=== PATIENT | female | born 1930 | race Caucasian/White ===

== ENCOUNTER 2018-10-07 23:09 | Inpatient (IN) | payer MEDICARE, MEDICAID ==
[2018-10-08] MEDS ORDERED: Labetalol HCl 100 MG/20 ML VIAL ONE (00:56)
[2018-10-08] MEDS ORDERED: Piperacillin/Tazobactam 3.375 GM VIAL ONE (00:56)
[2018-10-08] MEDS ORDERED: Ondansetron ODT 4 MG TAB PO PRN (02:45)
[2018-10-08] MEDS ORDERED: Acetaminophen 650 MG Suppository PR PRN (02:45)
[2018-10-08] MEDS ORDERED: Calcium Carbonate 500 MG ChewTAB PO PRN (02:45)
[2018-10-08] MEDS ORDERED: Bisacodyl 10 MG SUPP PR PRN (02:45)
[2018-10-08] MEDS ORDERED: Ondansetron PF 4 MG/2 ML Vial IVP PRN (02:45)
[2018-10-08] MEDS ORDERED: hydrALAZINE 20 MG/ML VIAL SLOW IVP PRN (02:49)
[2018-10-08] MEDS ORDERED: Nitroglycerin 0.4 MG TAB (25 Tab Bottle) PO PRN (02:50)
[2018-10-08] MEDS ORDERED: cloNIDine 0.1 MG TAB PO PRN (02:51)
[2018-10-08 03:32] LABS: #Lymphocytes 0.8 thou/uL (1.20-3.40); #Monocytes 0.4 thou/uL (0.11-0.59); #Neutrophils 7.9 thou/uL (1.40-6.50); %Basophils 0.4 % (0.0-1.0); %Eosinophils 0.2 % (0.0-10.0); %Lymphocytes 8.3 % (21.0-51.0); %Monocytes 4.2 % (0.0-10.0); %Neutrophils 86.8 % (42.0-75.0); Hemoglobin 12.5 g/dL (12.0-16.0); Mean Corpuscular HGB CONC 32.2 g/dL (32.0-36.0); Mean Corpuscular Hemoglobin 28.8 pg (27.0-31.0); Mean Corpuscular Volume 89.5 fL (78.0-98.0); Mean Platelet Volume 8.2 fL (7.4-10.4); Platelet Count 226 thou/uL (130-400); RBC Distribution Width 12.5 % (11.5-14.5); Red Blood Cell (RBC) Count 4.33 mill/uL (4.20-5.40); White Blood Cell (WBC) Count 9.1 thou/uL (4.8-10.8)
[2018-10-08 03:44] LABS: INR-International Normal Ratio 1.1; PTT 29.8 SEC (22.9-36.1); Prothrombin Time 14.3 SEC (12.0-14.7)
[2018-10-08 03:48] LABS: ALT (SGPT) 10 U/L (8-55); AST (SGOT) 16 U/L (5-34); Alkaline Phosphatase 105 U/L (40-150); Anion Gap 14 mmol/L (10-20); BUN (Urea Nitrogen) 14 mg/dL (9.8-20.1); Bilirubin, Total 0.5 mg/dL (0.2-1.2); Calc. Creatinine Clearance 0 mL/min (70-130); Calcium 9.2 mg/dL (7.8-10.44); Carbon Dioxide 24 mmol/L (23-31); Chloride 106 mmol/L (98-107); Estimated GFR-MDRD 71; Globulin 2.9 g/dL (2.4-3.5); Glucose 143 mg/dL (83-110); Magnesium 1.9 mg/dL (1.6-2.6); Potassium 4.1 mmol/L (3.5-5.1); Protein, Total 6.9 g/dL (6.0-8.3); Sodium 140 mmol/L (136-145)
[2018-10-08 03:51] LABS: Troponin I Less than 0.010 ng/mL (< 0.028)
--- NOTE | 2018-10-08 03:51 | HP ---
PRIMARY CARE PHYSICIAN: Dr. Dunham at [facility]. CHIEF COMPLAINT: Nausea and vomiting. HISTORY OF PRESENT ILLNESS: The patient is an 88-year-old female with dementia, currently residing at [facility], was brought in to [place] [facility] with nausea and vomiting. The patient is a poor historian, and history was obtained from the ER records. No family at the bedside. The patient has been nauseous and had several episodes of vomiting at the nursing facility. She also had mild diffuse abdominal pain. There was no diarrhea or flank pain reported. No fever, diaphoresis, dysuria, hematuria, or urgency reported. She also had elevated blood pressure that did not improve despite hydralazine at the nursing facility. For this reason, she was sent to the emergency room. In the emergency room, her initial vital signs showed temperature 97.2, respirations 20, pulse of 98 with a blood pressure 182/140 and 219/108 with O2 saturation 94% on room air. CT scan of the brain was negative for acute findings except for remote CVAs. Chest x-ray was negative for infiltrate. CT scan of the abdomen and pelvis showed pyelonephritis with staghorn calculus. The gallbladder also was distended with stone and sludge. There was some questionable enteritis as well. She received ceftriaxone, Compazine, nitroglycerin patch, and labetalol and was transferred to this facility. PAST MEDICAL HISTORY: 1. Alzheimer dementia. 2. Hypertension. 3. Allergic rhinitis. 4. Iron-deficiency anemia. 5. Congestive heart failure. Ejection fraction unavailable. 6. Gastroesophageal reflux disease. 7. Anxiety and depression. PAST SURGICAL HISTORY: 1. Hip replacement. 2. Cardiac surgery of unclear etiology. ALLERGIES: NO KNOWN DRUG ALLERGIES. CURRENT MEDICATIONS: She is currently on, 1. Seroquel. 2. Vitamin D. 3. Hydralazine. 4. Loratadine. 5. Metoprolol. 6. Potassium chloride. 7. Remeron. 8. Exelon patch. 9. Lisinopril. 10. Iron supplementation per ER record. We will try to obtain accurate list of medications from the nursing facility. CODE STATUS: Full code for now. We will try to verify with the family, when they arrive. SOCIAL HISTORY: The patient currently resides at [facility]. No current use of smoking, alcohol, or drug use. FAMILY HISTORY: Father had prostate cancer. REVIEW OF SYSTEMS: Cannot be obtained from the patient due to current cognitive status. PHYSICAL EXAMINATION: VITAL SIGNS: As discussed above. GENERAL: An 88-year-old female, in no apparent distress. HEENT: Head, atraumatic and normocephalic. Sclerae anicteric. Dry mucous membranes. No oral lesion. NECK: Supple. No JVD appreciated. No carotid bruit. LUNGS: Showed scattered rhonchi with diminished air entry at bases. No wheezing or accessory muscle use. No significant rales. HEART: S1 and S2 present. Regular rate and rhythm. 2/6 systolic murmur over the mitral area. ABDOMEN: Soft. Mild generalized tenderness. No rebound or guarding. No costovertebral angle tenderness. EXTREMITIES: 1+ edema in bilateral lower extremities. No calf tenderness. SKIN: Warm and dry. LYMPH NODE: No palpable lymph nodes in the neck. PERIPHERAL VASCULAR: Radial pulses palpable bilaterally. MUSCULOSKELETAL: No joint swelling or tenderness. LABORATORY FINDINGS: CBC showed WBC 5.6 with hemoglobin 12.5, hematocrit 38.8, and platelets 205. Chemistry showed sodium 144, potassium 3.9, chloride 107, bicarb 26, BUN 12, and creatinine 0.76. LFTs in normal range. BNP 218. Troponin was negative. TSH 0.72. Lactic acid was 0.8. Urinalysis showed 21 to 50 wbc's with 4+ bacteria. Urine cultures and blood cultures have been sent. Chest x-ray by my review as discussed above. CT scan of the abdomen and pelvis by my review as discussed above. EKG by my review showed sinus rhythm with first-degree AV block. IMPRESSION: 1. Acute pyelonephritis. 2. Staghorn left renal calculus. 3. Gallbladder distention with gallbladder calculi and/or sludge. Abdominal ultrasound pending at this time. 4. Pulmonary vascular congestion with history of congestive heart failure, ejection fraction unknown. 5. Hypertensive urgency. 6. Anxiety. 7. Depression, mild, stable. 8. Alzheimer dementia. 9. 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 11. Dehydration. PLAN: The patient will be monitored on the medical floor. Urology will be consulted. ER physician has already discussed the case with Dr. Mayer. Empiric antibiotics will be continued. We will continue antihypertensive regimen. Nitroglycerin patch. P.r.n. antihypertensives. We will keep her n.p.o. The patient will require 2 to 3 days for stabilization. Blood and urine cultures have been sent. Plan of care was discussed with the patient. We will discuss the plan of care with the family, when they arrive. Surrogate decision maker needs to be verified. The patient will be kept full code for now. Job ID: [id number]
[2018-10-08] MEDS: Nitroglycerin 2% Ointment 1 INCH/1 GM Packet TOP SCH ×3 (04:16→19:10)
[2018-10-08] MEDS: Dextrose 5 %-0.45 % NaCl 1,000 ML IV SCH ×2 (04:16→23:54)
--- NOTE | 2018-10-08 08:05 | ULT ---
RIGHT UPPER QUADRANT ULTRASOUND: HISTORY: Right upper quadrant pain, abdominal pain, nausea and vomiting. FINDINGS: Multiple longitudinal and transverse images of the right upper quadrant abdomen is obtained using a m ultihertz curvilinear transducer. Real-time, color flow images used to evaluate the right upper quad rant. The liver is unremarkable with no evidence of hepatic parenchymal masses or lesions. The gallbladder contains echogenic foci compatible with numerous gallstones as well as gallbladder sl udge. The gallbladder wall is not significantly thickened measuring 2 mm. No evidence of pericholec ystic fluid is seen. The common bile duct is of normal size measuring 6.5 mm. The right kidney is unremarkable measuring 10.1 cm from [id number]. It does contain approximately 3.2 x 2.9 cm cyst in the lower pole of the right kidney. Visualized portion of the pancreas is unremarkable. IMPRESSION: 1. Cholelithiasis. 2. Lower pole right renal cyst. POS: AMEE
[2018-10-08] MEDS: cefTRIAXone\\ROCEPHIN 2 GM in Sodium Chloride 0.9% 100 ML IVPB SCH (08:29)
[2018-10-08] MEDS: Senokot S 8.6-50 MG TAB PO SCH ×2 (08:30→20:11)
[2018-10-08] MEDS: Lisinopril 20 MG TAB PO SCH (08:30)
[2018-10-08] MEDS: Saccharomyces boulardii 250 MG CAP PO SCH (08:30)
[2018-10-08] MEDS: hydrALAZINE 25 MG TAB PO SCH ×3 (08:30→20:12)
--- NOTE | 2018-10-08 13:32 | RAD ---
XR Abdomen 1 View/KUB 1 view abdomen series CLINICAL INDICATION: Urolithiasis FINDINGS: Lung bases are clear. Staghorn density of the left abdomen is present. There is contrast within moderately distended urinar y bladder. Bladder wall is trabeculated. IMPRESSION: Staghorn calculus of left abdomen. Trabeculated urinary bladder which can be seen in the setting of neurogenic bladder or sequela from c hronic outlet obstruction. Correlate clinically.
--- NOTE | 2018-10-08 14:10 | CON ---
DATE OF CONSULTATION: 10/08/2018 PRIMARY CARE DOCTOR: Kaleigh Dunham MD, [place] REASON FOR CONSULT: Left staghorn calculus. HISTORY OF PRESENT ILLNESS: Ms. Norris is a pleasant 88-year-old female with history of Alzheimer dementia, oriented x1, who presented from [facility] due to history of nausea and vomiting. The patient is a poor historian, oriented x1. No family at bedside. I did reach out to her power of vehicle trimmer daughter, extensive discussion with daughter, History of nausea with several episodes of vomiting per nursing facility. Currently, she is resting comfortably. Denies flank pain or abdominal pain. She denies history of dysuria, gross hematuria, frequent UTI, no history of kidney stone. Daughter confirms that the patient has not had significant UTIs, nor prior history of kidney stones. No history of fever or chills. Her main complaint was as above of nausea, emesis, and diffuse abdominal pain. CT of the abdomen and pelvis with IV contrast was performed demonstrating incidental right renal cyst, and there is a left staghorn, involving the renal pelvis, mid and lower pole with cortical scarring of the upper and lower poles. She has been provided Rocephin. Urinalysis is consistent with UTI, white count normal. Renal function and lactic acid are within normal limits. PAST MEDICAL HISTORY: Includes, 1. Alzheimer dementia. 2. Hypertension. 3. Iron deficiency anemia. 4. Congestive heart failure, EF unknown. 5. GERD. 6. Anxiety/depression. 7. History of first degree heart block. 8. History of myxoma of heart. 9. History of C. diff 10-12 years ago, resulting in acute renal failure requiring hemodialysis. PAST SURGICAL HISTORY: Hip replacement, cataract surgery in 2014 and 2016. Per PCP records, had myxoma removed from her heart in 2004 and 2006 due to recurrence. FAMILY HISTORY: Positive for prostate cancer. SOCIAL HISTORY: She is a retirement resident. ALLERGIES: NO KNOWN DRUG ALLERGIES. PHYSICAL EXAMINATION: VITAL SIGNS: Her vital signs are stable. She is 98, 94, 94%, 162/182. GENERAL: The patient appears to be in no acute distress. She is oriented x1. HEENT: Grossly unremarkable. HEART: Regular rate. LUNGS: Clear. ABDOMEN: Soft. There is no rigidity. No rebound. No CVA tenderness. : Demonstrates atrophic vaginitis. No significant prolapse. Urethral meatus is easily visible. EXTREMITIES: No cyanosis, clubbing, or edema. PERTINENT LABORATORY DATA: White count of 9.1, hemoglobin 12, platelet 226, creatinine 0.7. Lactic acid within normal limits of 0.8. Urinalysis demonstrates 4+ bacteria, no epithelials, 30 of protein, positive nitrites, moderate leukocytes, 21 to 50 wbc's, 11 to 20 rbc's. IMAGING STUDIES: CT of the abdomen and pelvis with contrast. No prior imaging to compare. Demonstrates 3.5 cm hypodense right lower pole renal cyst compatible with cyst, too small to characterize bilateral hypodense renal cysts. There is a left staghorn with associated cortical scarring of the left lower pole. HU 400-700 .The staghorn calculi demonstrates per my review involving the renal pelvis, mid and lower pole. There is minimal dilatation of the left lower and upper poles. Minimal stranding. Pleural thickening. Small amount of free fluid in the abdomen. Thickening of the small bowel extending into the lower pelvis with mild prominence of the bowel loops suggesting enteritis and distended gallbladder with calculi and sludge. CT of the brain demonstrates cortical volume loss, mild lacunar infarct. Abdominal ultrasound, cholelithiasis, gallbladder wall is not significantly thickened. IMPRESSION: Ms. Norris is an 88-year-old female with, 1. History of severe Alzheimer dementia. 2. Hypertension. 3. History of congestive heart failure. 4. History of myxoma of the heart removal x2. 5. History of Clostridium difficile in 12-13 years ago resulting in acute renal failure on dialysis. 6. Current admission due to abdominal pain, nausea, vomiting, likely due to enteritis. Resolved 7. Incidental left branch staghorn with urinalysis demonstrating urinary tract infection. RECOMMENDATION: I discussed with patient's daughter, who is the power of vehicle trimmer, regarding the patient's presentation, prognosis, diagnosis and treatment options. I have informed the family that our options include conservative observation given her advanced age, comorbidities. With observation, the possibility of progression of staghorn calculi resulting in pyelonephritis, loss of renal function, sepsis reviewed. Conversely, the options include percutaneous nephrolithotomy, nephrectomy, ureteroscopy, laser lithotripsy. Unfortunately, the surgical interventions above are high risk given her advanced age. If family and patient decides to choose surgery, she will require formal cardiac clearance. I do not recommend percutaneous nephrolithotomy given her age and frailty, there is significant risk for bleeding associated with PCNL as it is more morbid. nephrectomy also remains high risk. Options of ureteroscopy and laser lithotripsy further discussed. Given the extensive stone burden, she will require multiple general anesthesia events to clear her stone burden. Moreover, risk of sepsis, bacteremia by manipulating the stone was reviewed. The patient's daughter understands the limited options given her advanced age and comorbidities. As she is clinically stable, daughter will think about this matter and let me know regarding her final decision. She desires her mother to be full code as of now. No surgical intervention per indicated at this time. The patient is nontoxic appearing. Daughter informed that despite cardiac clearance obtained, high risk for surgical intervention remains given her advanced age. Recommend broad-spectrum antibiotics until culture final. She will need to be transitioned to appropriate antibiotic therapy based on sensitivity. If the patient/family agreed to be conservatively observed, Infectious Disease consult will be obtained regarding options of antibiotic regimen prophylaxis due to staghorn calculi, as there is history of C. diff as well. Over 1 hour spent with patient/direct patient care consulting with family. Job ID: [id number] MTDTrudi
[2018-10-09] MEDS: Nitroglycerin 2% Ointment 1 INCH/1 GM Packet TOP SCH (02:18)
[2018-10-09 06:19] LABS: #Eosinphils 0.1 thou/uL (0.0-0.7); #Lymphocytes 1.8 thou/uL (1.20-3.40); #Monocytes 0.6 thou/uL (0.11-0.59); #Neutrophils 4.1 thou/uL (1.40-6.50); %Basophils 0.6 % (0.0-1.0); %Eosinophils 2.2 % (0.0-10.0); %Lymphocytes 27.4 % (21.0-51.0); %Monocytes 8.9 % (0.0-10.0); %Neutrophils 60.9 % (42.0-75.0); Hemoglobin 10.6 g/dL (12.0-16.0); Mean Corpuscular HGB CONC 31.4 g/dL (32.0-36.0); Mean Corpuscular Hemoglobin 28.4 pg (27.0-31.0); Mean Corpuscular Volume 90.3 fL (78.0-98.0); Mean Platelet Volume 7.8 fL (7.4-10.4); Platelet Count 198 thou/uL (130-400); RBC Distribution Width 12.5 % (11.5-14.5); Red Blood Cell (RBC) Count 3.73 mill/uL (4.20-5.40); White Blood Cell (WBC) Count 6.7 thou/uL (4.8-10.8)
[2018-10-09 06:43] LABS: ALT (SGPT) 7 U/L (8-55); AST (SGOT) 18 U/L (5-34); Albumin 3.4 g/dL (3.4-4.8); Alkaline Phosphatase 86 U/L (40-150); Anion Gap 9 mmol/L (10-20); BUN (Urea Nitrogen) 14 mg/dL (9.8-20.1); Bilirubin, Total 0.3 mg/dL (0.2-1.2); Calc. Creatinine Clearance 48 mL/min (70-130); Calcium 8.7 mg/dL (7.8-10.44); Carbon Dioxide 28 mmol/L (23-31); Chloride 108 mmol/L (98-107); Estimated GFR-MDRD 59; Globulin 2.6 g/dL (2.4-3.5); Glucose 93 mg/dL (83-110); Potassium 3.6 mmol/L (3.5-5.1); Sodium 141 mmol/L (136-145)
[2018-10-09] MEDS: Saccharomyces boulardii 250 MG CAP PO SCH (07:40)
[2018-10-09] MEDS ORDERED: Diabetic Tussin DM 5 ML UDCUP PO PRN (07:40)
[2018-10-09] MEDS ORDERED: hydrALAZINE 10 MG TAB PO PRN (07:40)
[2018-10-09] MEDS: Senokot S 8.6-50 MG TAB PO SCH ×2 (07:40→20:57)
[2018-10-09] MEDS ORDERED: Loratadine 10 MG TAB PO PRN (07:40)
[2018-10-09] MEDS ORDERED: Ondansetron ODT 4 MG TAB PO PRN (07:40)
[2018-10-09] MEDS: hydrALAZINE 25 MG TAB PO SCH ×3 (07:41→20:55)
[2018-10-09] MEDS: Lisinopril 20 MG TAB PO SCH (07:41)
[2018-10-09] MEDS: cefTRIAXone\\ROCEPHIN 2 GM in Sodium Chloride 0.9% 100 ML IVPB SCH (07:41)
--- NOTE | 2018-10-09 08:41 | PRG ---
DATE OF SERVICE: 10/09/2018 SUBJECTIVE: The patient without complaints. Denies nausea, vomiting, chills, or fever. No CVA tenderness. PHYSICAL EXAMINATION: VITAL SIGNS: Stable at 98.6, 107, 18, 96, 170/81. I's and O's, she is voiding in her diapers. ABDOMEN: Soft, nontender, nondistended. No CVA tenderness. PERTINENT LABORATORY DATA: White count 6.7, hemoglobin 10.6, platelet 198. No significant shift. Renal function is stable with creatinine of 0.91. Urine culture from [facility] is pending. IMPRESSION AND PLAN: Ms. Norris is an 88-year-old female with, 1. History of severe Alzheimer dementia. 2. Hypertension. 3. History of congestive heart failure. 4. Myxoma of the heart removal x2. 5. History of Clostridium diff 12-13 years ago resulting in acute renal failure, dialysis. 6. Current admission due to enteritis, resolved. 7. Incidental left branch staghorn calculus. Urinalysis demonstrating UTI infection, sensitivity pending from [facility]. As previous, I have discussed with daughter on initial consult regarding disposition regarding treatment options. Given her significant advanced age and comorbidities, high risk for surgical intervention was reviewed. Family will let me know regarding their preference on treatment of surgical versus medical observation given her clinical comorbidities. She is hemodynamically stable. Await final culture and sensitivity prior to discharge. Continue antibiotic regimen with Rocephin for now. Due to her advanced age and frail nature, would prefer conservative observation with medical therapy in the absence of clinical compromise/sepsis ID: [id number] [facility]
[2018-10-09] MEDS ORDERED: Rivastigmine 9.5mg/24 Hour PATCH TD SCH (09:00)
[2018-10-09] MEDS ORDERED: MIRTAZAPINE PO SCH (09:00)
[2018-10-09] MEDS ORDERED: Lisinopril 20 MG TAB PO SCH (09:00)
[2018-10-09] MEDS ORDERED: Fluticasone Propionate Nasal Spray 16 gm Bottle NASAL SCH (09:00)
[2018-10-09] MEDS ORDERED: hydrALAZINE 25 MG TAB PO SCH (09:00)
[2018-10-09] MEDS ORDERED: Non-Formulary Item 1 EACH (Cholecalciferol (Vitamin D3) [Vitamin D3] 1 TAB) PO SCH (09:00)
[2018-10-09] MEDS ORDERED: Metoprolol Tartrate 25 MG TAB PO SCH (09:00)
[2018-10-09] MEDS: Rivastigmine 9.5mg/24 Hour PATCH TD SCH (10:22)
[2018-10-09] MEDS: Metoprolol Tartrate 25 MG TAB PO SCH ×2 (10:22→20:55)
[2018-10-09] MEDS: Fluticasone Propionate Nasal Spray 16 gm Bottle NASAL SCH (10:22)
--- NOTE | 2018-10-09 10:52 | PDOC.PN ---
- Subjective Encounter Start Date: 10/09/18 Encounter Start Time: 08:30 -: old records requested/rev Patient seen and examined. No new complaints. No overnight events - Objective Resuscitation Status - Order Detail: 10/08/18 02:45 Resuscitation Status Routine Resuscitation Status: FULL: Full Resuscitation MAR Reviewed: Yes Vital Signs & Weight: Vital Signs (12 hours) Temp Pulse Resp BP BP Pulse Ox 10/09/18 08:00 98.1 F 115 H 22 H 144/70 H 97 10/09/18 07:41 108 H 116/61 10/09/18 04:56 98.6 F 107 H 18 170/81 H 96 10/09/18 02:35 94 L Weight Weight 149 lb 14.629 oz I&O: 10/08/18 10/09/18 10/10/18 06:59 06:59 06:59 Intake Total 950 Balance 950 Result Diagrams: 10/09/18 06:09 10/09/18 06:09 Phys Exam - Physical Examination Constitutional: NAD HEENT: PERRLA, moist MMs, sclera anicteric Neck: no JVD, supple Respiratory: no wheezing, no rales, no rhonchi Cardiovascular: RRR, no significant murmur, no rub Gastrointestinal: soft, non-tender, no distention, positive bowel sounds Musculoskeletal: no edema, pulses present Neurological: non-focal, normal sensation Lymphatic: no nodes Psychiatric: normal affect, A&O x 3 Skin: no rash, normal turgor Dx/Plan (1) Acute pyelonephritis Code(s): N10 - ACUTE PYELONEPHRITIS Status: Acute (2) Enteritis Code(s): K52.9 - NONINFECTIVE GASTROENTERITIS AND COLITIS, UNSPECIFIED Status : Acute (3) Staghorn calculus Code(s): N20.0 - CALCULUS OF KIDNEY Status: Acute (4) Alzheimer's dementia Code(s): G30.9 - ALZHEIMER'S DISEASE, UNSPECIFIED; F02.80 - DEMENTIA IN OTH DISEASES CLASSD ELSWHR W/O BEHAVRL DISTURB Status: Chronic (5) Anxiety and depression Code(s): F41.9 - ANXIETY DISORDER, UNSPECIFIED; F32.9 - MAJOR DEPRESSIVE DISORDER, SINGLE EPISODE, UNSPECIFIED Status: Chronic (6) Cholelithiases Code(s): K80.20 - CALCULUS OF GALLBLADDER W/O CHOLECYSTITIS W/O OBSTRUCTION Status: Chronic (7) Hypertension Code(s): I10 - ESSENTIAL (PRIMARY) HYPERTENSION Status: Chronic (8) Hypertensive urgency Code(s): I16.0 - HYPERTENSIVE URGENCY Status: Resolved - Plan cont current plan of care, continue antibiotics * medication reviewed as below * symptomatic treatment * follow culture * continue rocephin * urology following. Review of Systems - Review of Systems ENT: negative: Ear Pain, Ear Discharge, Nose Pain, Nose Discharge, Nose Congestion, Mouth Pain, Mouth Swelling, Throat Pain, Throat Swelling, Other Respiratory: negative: Cough, Dry, Shortness of Breath, Hemoptysis, SOB with Excertion, Pleuritic Pain, Sputum, Wheezing Cardiovascular: negative: chest pain, palpitations, orthopnea, paroxysmal nocturnal dyspnea, edema, light headedness, other Gastrointestinal: negative: Nausea, Vomiting, Abdominal Pain, Diarrhea, Constipation, Melena, Hematochezia, Other Genitourinary: negative: Dysuria, Frequency, Incontinence, Hematuria, Retention , Other Musculoskeletal: negative: Neck Pain, Shoulder Pain, Arm Pain, Back Pain, Hand Pain, Leg Pain, Foot Pain, Other - Medications/Allergies Allergies/Adverse Reactions: Allergies Allergy/AdvReac Type Severity Reaction Status Date / Time No Known Drug Allergies Allergy Verified 10/08/18 05:10 Medications: Current Medications Acetaminophen (Tylenol) 650 mg PO Q4H PRN PRN Reason: Headache/Fever/Mild Pain (1-3) Acetaminophen (Tylenol) 650 mg [place] Q4H PRN PRN Reason: Headache/Fever/Mild Pain (1-3) Bisacodyl (Dulcolax) 10 mg [place] DAILYPRN PRN PRN Reason: Constipation Calcium Carbonate (Tums) 1,000 mg PO Q4H PRN PRN Reason: Heartburn or Indigestion Cholecalciferol (Vitamin D3) 1,000 units PO DAILY [facility] Last Admin: 10/09/18 10:22 Dose: 1,000 units Clonidine (Catapres) 0.1 mg PO Q4H PRN PRN Reason: Systolic BP > 180 Ferrous Sulfate (Feosol) 325 mg PO [facility] Fluticasone Propionate (Flonase Nasal Mobile) 0 gm NASAL DAILY [facility] Last Admin: 10/09/18 10:22 Dose: 1 spr Guaifenesin/Dextromethorphan (Diabetic Tussin Dm) 10 ml PO Q6H PRN PRN Reason: Cough Hydralazine HCl (Apresoline) 25 mg PO TID [facility] Last Admin: 10/09/18 07:41 Dose: 25 mg Hydralazine HCl (Apresoline) 10 mg SLOW IVP Q4H PRN PRN Reason: SBP Greater Than 180 Hydralazine HCl (Apresoline) 10 mg PO Q6H PRN PRN Reason: Hypertension Ceftriaxone Sodium 2 gm/ (Sodium Chloride) 100 mls @ 200 mls/hr IVPB DAILY [facility] Last Admin: 10/09/18 07:41 Dose: 100 mls Dextrose/Sodium Chloride (D5 1/2 Ns) 1,000 mls @ 50 mls/hr IV .Q20H [facility] Last Admin: 10/08/18 23:54 Dose: 1,000 mls Lisinopril (Zestril) 20 mg PO DAILY [facility] Last Admin: 10/09/18 07:41 Dose: 20 mg Loratadine (Claritin) 10 mg PO DAILY PRN PRN Reason: cough Metoprolol Tartrate (Lopressor) 25 mg PO BID [facility] Last Admin: 10/09/18 10:22 Dose: 25 mg Nitroglycerin (Nitrostat) 0.4 mg PO Q5MIN PRN PRN Reason: Chest Pain Ondansetron HCl (Zofran Odt) 4 mg PO Q6H PRN PRN Reason: Nausea/Vomiting Ondansetron HCl (Zofran) 4 mg IVP Q6H PRN PRN Reason: Nausea/Vomiting Potassium Chloride (Klor-Con 10) 10 meq PO QAM-WM [facility] Quetiapine Fumarate (Seroquel) 300 mg PO HS [facility] Rivastigmine (Exelon Patch) 9.5 mg TD DAILY [facility] Last Admin: 10/09/18 10:22 Dose: 9.5 mg Saccharomyces Boulardii (Florastor) 250 mg PO DAILY [facility] Last Admin: 10/09/18 07:40 Dose: 250 mg Senna/Docusate Sodium (Senokot S) 1 tab PO BID [facility] Last Admin: 10/09/18 07:40 Dose: 1 tab Sodium Chloride (Flush - Normal Saline) 10 ml IVF PRN PRN PRN Reason: Saline Flush
[2018-10-09 15:25] VITALS: BMI 19.4
[2018-10-09] MEDS: Dextrose 5 %-0.45 % NaCl 1,000 ML IV SCH (20:57)
[2018-10-10] MEDS ORDERED: Ferrous Sulfate 325 MG TAB PO SCH (08:00)
[2018-10-10 08:12] LABS: #Eosinphils 0.1 thou/uL (0.0-0.7); #Lymphocytes 1.5 thou/uL (1.20-3.40); #Monocytes 0.6 thou/uL (0.11-0.59); #Neutrophils 2.4 thou/uL (1.40-6.50); %Basophils 0.9 % (0.0-1.0); %Eosinophils 3.1 % (0.0-10.0); %Lymphocytes 32.1 % (21.0-51.0); %Monocytes 13.5 % (0.0-10.0); %Neutrophils 50.5 % (42.0-75.0); Hemoglobin 10.5 g/dL (12.0-16.0); Mean Corpuscular Hemoglobin 27.9 pg (27.0-31.0); Mean Corpuscular Volume 89.8 fL (78.0-98.0); Mean Platelet Volume 8.7 fL (7.4-10.4); Platelet Count 180 thou/uL (130-400); RBC Distribution Width 12.7 % (11.5-14.5); Red Blood Cell (RBC) Count 3.79 mill/uL (4.20-5.40); White Blood Cell (WBC) Count 4.7 thou/uL (4.8-10.8)
[2018-10-10 08:28] LABS: Anion Gap 12 mmol/L (10-20); BUN (Urea Nitrogen) 19 mg/dL (9.8-20.1); Calc. Creatinine Clearance 47 mL/min (70-130); Calcium 8.5 mg/dL (7.8-10.44); Carbon Dioxide 26 mmol/L (23-31); Chloride 108 mmol/L (98-107); Estimated GFR-MDRD 71; Glucose 83 mg/dL (83-110); Potassium 3.8 mmol/L (3.5-5.1); Sodium 142 mmol/L (136-145)
--- NOTE | 2018-10-10 09:34 | PRG ---
DATE OF SERVICE: 10/10/2018 SUBJECTIVE: The patient is alert and awake. Denies flank pain, fever, or chills. OBJECTIVE: VITAL SIGNS: Stable. She is afebrile. ABDOMEN: Soft, nontender, nondistended. No CVA tenderness. LABORATORY DATA: No new labs. She has no has no evidence of leukocytosis or fever. Renal function stable at 0.9. Blood culture negative. Urine culture preliminary demonstrates Klebsiella, pansensitive. Currently on Rocephin. IMPRESSION AND PLAN: An 88-year-old female with, 1. History of severe Alzheimer dementia. 2. History of hypertension. 3. History of congestive heart failure. 4. History of myxoma of the heart removal x2. 5. History of Clostridium difficile 12-13 years ago resulting in acute renal failure, dialysis. 6. Admission due to enteritis, resolved. 7. Incidental left branch staghorn calculus with normal renal function, asymptomatic. Urinalysis demonstrated bacteriuria. Currently, on appropriate antibiotic therapy. I will reach out to her daughter sometime today regarding her final decision regarding her mother's treatment options. I did express concern regarding her surgical candidacy due to her advanced age and frail nature. If they do agree to be observed, I will consult Infectious Disease regarding course of action regarding antibiotic therapy long-term as I do have concerns regarding chronic antibiotics due to history of C diff. Addendum: Spoke with daughter. We again discussed patient's diagnosis concern regarding her advanced age. Daughter who is patient's power of carrier packer has agreed to watch her mother conservatively with no surgical intervention as she has no acute events. Second opinion offered if she desires to proceed. Declined. Will initiate infectious disease consult, regarding recommendations of antibiotic regimen, prophylaxis. Spoke with Dr. Singh, clinical history informed Job ID: [id number] [facility]
[2018-10-10] MEDS: Saccharomyces boulardii 250 MG CAP PO SCH (09:54)
[2018-10-10] MEDS: hydrALAZINE 25 MG TAB PO SCH ×3 (09:54→19:55)
[2018-10-10] MEDS: Potassium Chloride 10 MEQ TAB PO SCH (09:56)
[2018-10-10] MEDS: Metoprolol Tartrate 25 MG TAB PO SCH ×2 (09:57→19:55)
[2018-10-10] MEDS: Senokot S 8.6-50 MG TAB PO SCH ×2 (09:57→19:55)
[2018-10-10] MEDS: Ferrous Sulfate 325 MG TAB PO SCH (09:58)
[2018-10-10] MEDS: Rivastigmine 9.5mg/24 Hour PATCH TD SCH (09:59)
[2018-10-10] MEDS: cefTRIAXone\\ROCEPHIN 2 GM in Sodium Chloride 0.9% 100 ML IVPB SCH (10:00)
[2018-10-10] MEDS: Fluticasone Propionate Nasal Spray 16 gm Bottle NASAL SCH (10:04)
[2018-10-10] MEDS: Lisinopril 20 MG TAB PO SCH (12:30)
--- NOTE | 2018-10-10 13:27 | PDOC.PN ---
- Subjective Encounter Start Date: 10/10/18 Encounter Start Time: 08:15 Patient seen and examined. No new complaints. No overnight events - Objective Resuscitation Status - Order Detail: 10/08/18 02:45 Resuscitation Status Routine Resuscitation Status: FULL: Full Resuscitation MAR Reviewed: Yes Vital Signs & Weight: Vital Signs (12 hours) Temp Pulse Resp BP BP Pulse Ox 10/10/18 12:30 153/73 H 10/10/18 09:54 87 10/10/18 07:04 97.9 F 87 19 168/90 H 98 Weight Admit Weight 125 lb Weight 124 lb 4.8 oz I&O: 10/09/18 10/10/18 10/11/18 06:59 06:59 06:59 Intake Total 950 Balance 950 Result Diagrams: 10/10/18 07:38 10/10/18 07:38 Phys Exam - Physical Examination Constitutional: NAD HEENT: PERRLA, moist MMs, sclera anicteric Neck: no JVD, supple Respiratory: no wheezing, no rales, no rhonchi Cardiovascular: RRR, no significant murmur, no rub Gastrointestinal: soft, non-tender, no distention, positive bowel sounds Musculoskeletal: no edema, pulses present Neurological: non-focal, normal sensation Lymphatic: no nodes Psychiatric: normal affect Skin: no rash, normal turgor Dx/Plan (1) Acute pyelonephritis Code(s): N10 - ACUTE PYELONEPHRITIS Status: Acute (2) Enteritis Code(s): K52.9 - NONINFECTIVE GASTROENTERITIS AND COLITIS, UNSPECIFIED Status : Acute (3) Staghorn calculus Code(s): N20.0 - CALCULUS OF KIDNEY Status: Acute (4) Alzheimer's dementia Code(s): G30.9 - ALZHEIMER'S DISEASE, UNSPECIFIED; F02.80 - DEMENTIA IN OTH DISEASES CLASSD ELSWHR W/O BEHAVRL DISTURB Status: Chronic (5) Anxiety and depression Code(s): F41.9 - ANXIETY DISORDER, UNSPECIFIED; F32.9 - MAJOR DEPRESSIVE DISORDER, SINGLE EPISODE, UNSPECIFIED Status: Chronic (6) Cholelithiases Code(s): K80.20 - CALCULUS OF GALLBLADDER W/O CHOLECYSTITIS W/O OBSTRUCTION Status: Chronic (7) Hypertension Code(s): I10 - ESSENTIAL (PRIMARY) HYPERTENSION Status: Chronic (8) Hypertensive urgency Code(s): I16.0 - HYPERTENSIVE URGENCY Status: Resolved - Plan cont current plan of care, continue antibiotics * medication reviewed as below * symptomatic treatment * continue one more day IV antibiotics, so far culture negative * tomorrow will change to oral antibiotics and consider discharge. * DC IVF Review of Systems - Review of Systems ENT: negative: Ear Pain, Ear Discharge, Nose Pain, Nose Discharge, Nose Congestion, Mouth Pain, Mouth Swelling, Throat Pain, Throat Swelling, Other Respiratory: negative: Cough, Dry, Shortness of Breath, Hemoptysis, SOB with Excertion, Pleuritic Pain, Sputum, Wheezing Cardiovascular: negative: chest pain, palpitations, orthopnea, paroxysmal nocturnal dyspnea, edema, light headedness, other Gastrointestinal: negative: Nausea, Vomiting, Abdominal Pain, Diarrhea, Constipation, Melena, Hematochezia, Other Genitourinary: negative: Dysuria, Frequency, Incontinence, Hematuria, Retention , Other Musculoskeletal: negative: Neck Pain, Shoulder Pain, Arm Pain, Back Pain, Hand Pain, Leg Pain, Foot Pain, Other Skin: negative: Rash, Lesions, Ian, Bruising, Other - Medications/Allergies Allergies/Adverse Reactions: Allergies Allergy/AdvReac Type Severity Reaction Status Date / Time No Known Drug Allergies Allergy Verified 10/08/18 05:10 Medications: Current Medications Acetaminophen (Tylenol) 650 mg PO Q4H PRN PRN Reason: Headache/Fever/Mild Pain (1-3) Acetaminophen (Tylenol) 650 mg [place] Q4H PRN PRN Reason: Headache/Fever/Mild Pain (1-3) Bisacodyl (Dulcolax) 10 mg [place] DAILYPRN PRN PRN Reason: Constipation Calcium Carbonate (Tums) 1,000 mg PO Q4H PRN PRN Reason: Heartburn or Indigestion Cholecalciferol (Vitamin D3) 1,000 units PO DAILY [facility] Last Admin: 10/10/18 09:56 Dose: 1,000 units Clonidine (Catapres) 0.1 mg PO Q4H PRN PRN Reason: Systolic BP > 180 Ferrous Sulfate (Feosol) 325 mg PO QA[facility] Last Admin: 10/10/18 09:58 Dose: 325 mg Fluticasone Propionate (Flonase Nasal [place]) 0 gm NASAL DAILY [facility] Last Admin: 10/10/18 10:04 Dose: 1 spr Guaifenesin/Dextromethorphan (Diabetic Tussin Dm) 10 ml PO Q6H PRN PRN Reason: Cough Hydralazine HCl (Apresoline) 25 mg PO TID [facility] Last Admin: 10/10/18 09:54 Dose: 25 mg Hydralazine HCl (Apresoline) 10 mg SLOW IVP Q4H PRN PRN Reason: SBP Greater Than 180 Hydralazine HCl (Apresoline) 10 mg PO Q6H PRN PRN Reason: SBP >/=175, DBP >/= 105 Ceftriaxone Sodium 2 gm/ (Sodium Chloride) 100 mls @ 200 mls/hr IVPB DAILY [facility] Last Admin: 10/10/18 10:00 Dose: 100 mls Lisinopril (Zestril) 20 mg PO DAILY [facility] Last Admin: 10/10/18 12:30 Dose: 20 mg Loratadine (Claritin) 10 mg PO DAILY PRN PRN Reason: cough Metoprolol Tartrate (Lopressor) 25 mg PO BID [facility] Last Admin: 10/10/18 09:57 Dose: 25 mg Nitroglycerin (Nitrostat) 0.4 mg PO Q5MIN PRN PRN Reason: Chest Pain Ondansetron HCl (Zofran Odt) 4 mg PO Q6H PRN PRN Reason: Nausea/Vomiting Ondansetron HCl (Zofran) 4 mg IVP Q6H PRN PRN Reason: Nausea/Vomiting Potassium Chloride (Klor-Con 10) 10 meq PO QAM-WM [facility] Last Admin: 10/10/18 09:56 Dose: 10 meq Quetiapine Fumarate (Seroquel) 300 mg PO HS [facility] Last Admin: 10/09/18 20:55 Dose: 300 mg Rivastigmine (Exelon Patch) 9.5 mg TD DAILY [facility] Last Admin: 10/10/18 09:59 Dose: 9.5 mg Saccharomyces Boulardii (Florastor) 250 mg PO DAILY [facility] Last Admin: 10/10/18 09:54 Dose: 250 mg Senna/Docusate Sodium (Senokot S) 1 tab PO BID [facility] Last Admin: 10/10/18 09:57 Dose: 1 tab Sodium Chloride (Flush - Normal Saline) 10 ml IVF PRN PRN PRN Reason: Saline Flush
[2018-10-10] MEDS: Acetaminophen 325 MG TAB PO PRN (19:56)
[2018-10-11] MEDS: Senokot S 8.6-50 MG TAB PO SCH ×2 (08:01→20:53)
[2018-10-11] MEDS: Potassium Chloride 10 MEQ TAB PO SCH (08:01)
[2018-10-11] MEDS: Ferrous Sulfate 325 MG TAB PO SCH (08:01)
[2018-10-11] MEDS: Lisinopril 20 MG TAB PO SCH (08:02)
[2018-10-11] MEDS: Metoprolol Tartrate 25 MG TAB PO SCH ×2 (08:02→20:53)
[2018-10-11] MEDS: hydrALAZINE 25 MG TAB PO SCH ×3 (08:02→20:53)
[2018-10-11] MEDS: Saccharomyces boulardii 250 MG CAP PO SCH (08:02)
[2018-10-11] MEDS: Fluticasone Propionate Nasal Spray 16 gm Bottle NASAL SCH (08:03)
[2018-10-11] MEDS: cefTRIAXone\\ROCEPHIN 2 GM in Sodium Chloride 0.9% 100 ML IVPB SCH (08:03)
[2018-10-11] MEDS: Rivastigmine 9.5mg/24 Hour PATCH TD SCH (10:37)
--- NOTE | 2018-10-11 14:36 | PDOC.PN ---
- Subjective Encounter Start Date: 10/11/18 Encounter Start Time: 10:00 Patient seen and examined. No new complaints. No overnight events - Objective Resuscitation Status - Order Detail: 10/08/18 02:45 Resuscitation Status Routine Resuscitation Status: FULL: Full Resuscitation MAR Reviewed: Yes Vital Signs & Weight: Vital Signs (12 hours) Temp Pulse Resp BP BP BP Pulse Ox 10/11/18 10:34 124/60 10/11/18 08:08 96 10/11/18 08:02 72 178/79 H 10/11/18 08:00 97.7 F 77 16 178/79 H 96 10/11/18 05:20 97.6 F 72 20 159/88 H 99 Weight Admit Weight 125 lb Weight 124 lb 4.8 oz I&O: 10/10/18 10/11/18 10/12/18 06:59 06:59 06:59 Intake Total 900 Balance 900 Result Diagrams: 10/10/18 07:38 10/10/18 07:38 Phys Exam - Physical Examination Constitutional: NAD HEENT: PERRLA, moist MMs, sclera anicteric Neck: no JVD, supple Respiratory: no wheezing, no rales, no rhonchi Cardiovascular: RRR, no significant murmur, no rub Gastrointestinal: soft, non-tender, no distention, positive bowel sounds Musculoskeletal: no edema, pulses present Neurological: non-focal, normal sensation Lymphatic: no nodes Psychiatric: normal affect Skin: no rash, normal turgor Dx/Plan (1) Acute pyelonephritis Code(s): N10 - ACUTE PYELONEPHRITIS Status: Acute (2) Enteritis Code(s): K52.9 - NONINFECTIVE GASTROENTERITIS AND COLITIS, UNSPECIFIED Status : Acute (3) Staghorn calculus Code(s): N20.0 - CALCULUS OF KIDNEY Status: Acute (4) Alzheimer's dementia Code(s): G30.9 - ALZHEIMER'S DISEASE, UNSPECIFIED; F02.80 - DEMENTIA IN OTH DISEASES CLASSD ELSWHR W/O BEHAVRL DISTURB Status: Chronic (5) Anxiety and depression Code(s): F41.9 - ANXIETY DISORDER, UNSPECIFIED; F32.9 - MAJOR DEPRESSIVE DISORDER, SINGLE EPISODE, UNSPECIFIED Status: Chronic (6) Cholelithiases Code(s): K80.20 - CALCULUS OF GALLBLADDER W/O CHOLECYSTITIS W/O OBSTRUCTION Status: Chronic (7) Hypertension Code(s): I10 - ESSENTIAL (PRIMARY) HYPERTENSION Status: Chronic (8) Hypertensive urgency Code(s): I16.0 - HYPERTENSIVE URGENCY Status: Resolved - Plan cont current plan of care, continue antibiotics, social work job titles * medication reviewed as below * symptomatic treatment * continue IV rocephin for now * final antibiotics on discharge as per ID * will plan for discharge tomorrow. * so far culture negative * as per family only conservative treatment Review of Systems - Review of Systems ENT: negative: Ear Pain, Ear Discharge, Nose Pain, Nose Discharge, Nose Congestion, Mouth Pain, Mouth Swelling, Throat Pain, Throat Swelling, Other Respiratory: negative: Cough, Dry, Shortness of Breath, Hemoptysis, SOB with Excertion, Pleuritic Pain, Sputum, Wheezing Cardiovascular: negative: chest pain, palpitations, orthopnea, paroxysmal nocturnal dyspnea, edema, light headedness, other Gastrointestinal: negative: Nausea, Vomiting, Abdominal Pain, Diarrhea, Constipation, Melena, Hematochezia, Other Genitourinary: negative: Dysuria, Frequency, Incontinence, Hematuria, Retention , Other Musculoskeletal: negative: Neck Pain, Shoulder Pain, Arm Pain, Back Pain, Hand Pain, Leg Pain, Foot Pain, Other - Medications/Allergies Allergies/Adverse Reactions: Allergies Allergy/AdvReac Type Severity Reaction Status Date / Time No Known Drug Allergies Allergy Verified 10/08/18 05:10 Medications: Current Medications Acetaminophen (Tylenol) 650 mg PO Q4H PRN PRN Reason: Headache/Fever/Mild Pain (1-3) Last Admin: 10/10/18 19:56 Dose: 650 mg Acetaminophen (Tylenol) 650 mg [place] Q4H PRN PRN Reason: Headache/Fever/Mild Pain (1-3) Bisacodyl (Dulcolax) 10 mg [place] DAILYPRN PRN PRN Reason: Constipation Calcium Carbonate (Tums) 1,000 mg PO Q4H PRN PRN Reason: Heartburn or Indigestion Cholecalciferol (Vitamin D3) 1,000 units PO DAILY [facility] Last Admin: 10/11/18 08:02 Dose: 1,000 units Clonidine (Catapres) 0.1 mg PO Q4H PRN PRN Reason: Systolic BP > 180 Ferrous Sulfate (Feosol) 325 mg PO QAM-[facility] Last Admin: 10/11/18 08:01 Dose: 325 mg Fluticasone Propionate (Flonase Nasal [place]) 0 gm NASAL DAILY [facility] Last Admin: 10/11/18 08:03 Dose: 1 spr Guaifenesin/Dextromethorphan (Diabetic Tussin Dm) 10 ml PO Q6H PRN PRN Reason: Cough Hydralazine HCl (Apresoline) 25 mg PO TID [facility] Last Admin: 10/11/18 08:02 Dose: 25 mg Hydralazine HCl (Apresoline) 10 mg SLOW IVP Q4H PRN PRN Reason: SBP Greater Than 180 Hydralazine HCl (Apresoline) 10 mg PO Q6H PRN PRN Reason: SBP >/=175, DBP >/= 105 Ceftriaxone Sodium 2 gm/ (Sodium Chloride) 100 mls @ 200 mls/hr IVPB DAILY [facility] Last Admin: 10/11/18 08:03 Dose: 100 mls Lisinopril (Zestril) 20 mg PO DAILY [facility] Last Admin: 10/11/18 08:02 Dose: 20 mg Loratadine (Claritin) 10 mg PO DAILY PRN PRN Reason: cough Metoprolol Tartrate (Lopressor) 25 mg PO BID [facility] Last Admin: 10/11/18 08:02 Dose: 25 mg Nitroglycerin (Nitrostat) 0.4 mg PO Q5MIN PRN PRN Reason: Chest Pain Ondansetron HCl (Zofran Odt) 4 mg PO Q6H PRN PRN Reason: Nausea/Vomiting Ondansetron HCl (Zofran) 4 mg IVP Q6H PRN PRN Reason: Nausea/Vomiting Potassium Chloride (Klor-Con 10) 10 meq PO QAM-[facility] Last Admin: 10/11/18 08:01 Dose: 10 meq Quetiapine Fumarate (Seroquel) 300 mg PO HS [facility] Last Admin: 10/10/18 19:54 Dose: 300 mg Rivastigmine (Exelon Patch) 9.5 mg TD DAILY [facility] Last Admin: 10/11/18 10:37 Dose: 9.5 mg Saccharomyces Boulardii (Florastor) 250 mg PO DAILY [facility] Last Admin: 10/11/18 08:02 Dose: 250 mg Senna/Docusate Sodium (Senokot S) 1 tab PO BID [facility] Last Admin: 10/11/18 08:01 Dose: 1 tab Sodium Chloride (Flush - Normal Saline) 10 ml IVF PRN PRN PRN Reason: Saline Flush Last Admin: 10/11/18 08:05 Dose: 10 ml
--- NOTE | 2018-10-11 15:05 | PRG ---
DATE OF SERVICE: 10/11/2018 SUBJECTIVE: The patient without complaints. She is alert and awake, wants to go back to her nursing facility. Denies nausea, vomiting, or flank pain. PHYSICAL EXAMINATION: VITAL SIGNS: Vital signs are stable. She is afebrile. ABDOMEN: Soft, nontender, and nondistended. No CVA tenderness. LABORATORY DATA: White count 4.7, hemoglobin 10, and platelets 180. Creatinine is 0.7. Blood culture negative x2 from October 07. Urine culture on October 07 demonstrating Klebsiella pneumoniae, pansensitive. She has been on Rocephin since admission. IMPRESSION AND PLAN: Ms. Norris is a pleasant 88-year-old female with history of; 1. Severe Alzheimer dementia. 2. History of hypertension. 3. History of congestive heart failure. 4. Myxoma of the heart, removal x2. 5. History of Clostridium difficile 12 to 13 years ago resulting in acute renal failure, hemodialysis. 6. Currently admitted due to enteritis, resolved. 7. Incidental left branch staghorn calculus with normal renal function, asymptomatic. Urine culture results as above. She has been on appropriate antibiotic regimen with Rocephin. As previous, I discussed with her daughter, who is her power of privacy attorney. All options were reviewed including surgical intervention of nephrectomy, PCNL, ureteroscopy, laser lithotripsy, persistent observation given her age and comorbidities. Daughter has been fully informed regarding various treatment options, my concerns regarding her advanced age and her tolerability, and worsening sepsis. With all risks and benefits outlined, she has chosen for her mother to be observed clinically. As such, I have consulted Dr. Singh regarding options of outpatient antibiotic regimen, i.e., consideration for daily prophylaxis due to history of staghorn, which will result in recurrent bacteriuria. The patient may have asymptomatic bacteria, however, possibility of pyelonephritis and worsening renal function exist. Her daughter is aware of these risk factors and desires to be observed given her age. As such, we will wait for Infectious Disease consultation, recommendations for antibiotic regimen, consideration for daily prophylaxis. Discharge when cleared by Infectious Disease. Elective followup with will be provided. Job ID: [id number] MTDD
[2018-10-11] MEDS: Acetaminophen 325 MG TAB PO PRN (20:53)
--- NOTE | 2018-10-11 23:48 | CON ---
DATE OF CONSULTATION: REASON FOR CONSULTATION: Possible kidney infection with nephrolithiasis. HISTORY OF PRESENT ILLNESS: An 88-year-old patient who has a history of dementia, currently a resident at a jail and also some form of heart surgery in the past, not clear what the nature of it was, but anyway, she was brought because of reported abdominal pain, nausea, and vomiting. On arrival, she was afebrile. White cell count is 9.1 and neutrophil percent is 86%. Creatinine 0.77. She had 21 to 50 wbc's in urinalysis. She had Klebsiella pneumonia retrieved from the urine sample, quite susceptible phenotype. The CT of abdomen showed thickening of the small bowel loops with mesenteric edema. She did have a large staghorn calculus noted as well. Currently, Ms. Norris is sitting on the bed. She is very awake and alert, but obviously disoriented. She knew she was in the hospital, could not tell me which and could not tell me the city either or the date. She did follow commands and was quite pleasant. PAST MEDICAL HISTORY: Includes dementia, reportedly Alzheimer's, some form of cardiomyopathy, anxiety, depression, GERD, rhinitis, and hypertension. SURGICAL HISTORY: Hip replacement and some cardiac surgery of unclear nature. ALLERGIES: NONE. SOCIAL HISTORY: [facility] resident. Never a smoker. FAMILY HISTORY: Noncontributory. CURRENT MEDICATIONS: 1. Tylenol. 2. Dulcolax. 3. Tums. 4. Ceftriaxone. 5. Catapres. 6. Feosol. 7. Flonase. 8. Hydralazine. 9. Zestril. 10. Claritin. 11. Lopressor. 12. Saccharomyces. PHYSICAL EXAMINATION: VITAL SIGNS: T-max 98.7, blood pressure 149/70, pulse 69, respirations 20. SKIN: Not remarkable. GENERAL: She has a peripheral IV access and is voiding in the diaper and bedside commode. HEENT: Ocular movements conjugate. She has no king salmon teeth. NECK: Supple. No lymphadenopathy. LUNGS: Symmetric. Clear breath sounds. HEART: S1 and S2, regular rate. No S3 or S4. ABDOMEN: Soft, not distended or tender. No bladder distention. No ascites. EXTREMITIES: She is able to move all 4 extremities. Pulses are 1+ in dorsalis pedis. No edema. NEUROLOGICAL: She is awake, knows her name, but that is the extent of her orientation, very poor recollection. REVIEW OF SYSTEMS: Not particularly reliable. LABORATORY DATA: White cell count is down to 4.7, hemoglobin 10.5, platelets 180. INR 1.1. Liver profile normal. Creatinine 0.77. Blood cultures, no growth. She had 2 gram-negative rods; one was a Klebsiella greater than 100,000 CFUs, the other 10 to 25 not identified. IMAGING STUDIES: She had an echocardiogram with dilated left atrium. Abdominal ultrasound was completed with cholelithiasis, numerous gallstones and she had abdomen and pelvis CT from 2 or 3 days ago with thickened loops of small bowel in the left abdomen which extend into the pelvis with adjacent mild mesenteric edema. There was a staghorn left renal calculus involving the left renal pelvis, some calyceal dilatation, inferior pole left renal calculus, mild stranding, some distention of the gallbladder was noted. ASSESSMENT: 1. Dementia, probably from Alzheimer disease. 2. Staghorn calculus with [id number] obstruction of one of the calluses. 3. Evidence of enteritis. 4. Distended gallbladder. DISCUSSION: Differential diagnosis includes some form of gastroenteritis or ischemic bowel disease versus pyelonephritis versus gallbladder disease with cholecystitis. I believe an enteritis is the more likely reason for the patient's gastrointestinal symptoms rather than pyelonephritis and I would not treat the findings in the urine at this point in time. Evidently, she may have recrudescence of the symptoms. If it is, she truly has a small bowel inflammatory process that has not yet been clarified and she does have numerous stones in the gallbladder, but she has no liver function abnormalities and in the physical exam she did not have any findings suggestive of acute cholecystitis, so I do not think we need to pursue further those findings at least at this point in time. Evidently, she is at risk for decompensation down the road. So, in summary, I would not treat the urinary findings at this point. Job ID: [id number]
--- NOTE | 2018-10-12 07:49 | PRG ---
DATE OF SERVICE: 10/12/2018 SUBJECTIVE: The patient is resting comfortably. Denies pain. OBJECTIVE: VITAL SIGNS: Stable. She is afebrile. ABDOMEN: Soft, nontender, and nondistended. No CVA tenderness. DIAGNOSTIC DATA: Renal function stable. No evidence of leukocytosis. Blood culture negative. Urine culture; Klebsiella, pansensitive. IMPRESSION: Ms. Norris is an 88-year-old female with multiple medical comorbidities. 1. Advanced age. 2. Alzheimer's dementia, severe. 3. Hypertension. 4. History of congestive heart failure. 5. History of myxoma of the heart, removal x2. 6. History of Clostridium difficile resulting in acute renal failure/hemodialysis in the remote past, 12 to 13 years ago. 7. Current admission due to enteritis, resolved. 8. Incidental left branch staghorn calculus with stable renal function, asymptomatic bacteriuria. PLAN: Infectious Disease consulted. Appreciate Dr. Singh' input. No further antibiotic regimen advised as she is asymptomatic. The family has chosen to monitor the patient conservatively given her age and comorbidities. We will monitor for decompensation. Elective followup appointment in chart. May discharge back to [facility]. Job ID: [id number]
[2018-10-12] MEDS: cefTRIAXone\\ROCEPHIN 2 GM in Sodium Chloride 0.9% 100 ML IVPB SCH (08:34)
[2018-10-12] MEDS: Saccharomyces boulardii 250 MG CAP PO SCH (08:34)
[2018-10-12] MEDS: Ferrous Sulfate 325 MG TAB PO SCH (08:34)
[2018-10-12] MEDS: Potassium Chloride 10 MEQ TAB PO SCH (08:35)
[2018-10-12] MEDS: Metoprolol Tartrate 25 MG TAB PO SCH (08:35)
[2018-10-12] MEDS: Lisinopril 20 MG TAB PO SCH (08:35)
[2018-10-12] MEDS: Senokot S 8.6-50 MG TAB PO SCH (08:35)
[2018-10-12] MEDS: hydrALAZINE 25 MG TAB PO SCH (08:35)
[2018-10-12] MEDS: Fluticasone Propionate Nasal Spray 16 gm Bottle NASAL SCH (08:36)
--- NOTE | 2018-10-12 10:00 | PDOC.PN ---
- Subjective Encounter Start Date: 10/12/18 Encounter Start Time: 07:00 Patient seen and examined. No new complaints. No overnight events - Objective Resuscitation Status - Order Detail: 10/08/18 02:45 Resuscitation Status Routine Resuscitation Status: FULL: Full Resuscitation MAR Reviewed: Yes Vital Signs & Weight: Vital Signs (12 hours) Temp Pulse Resp BP BP Pulse Ox 10/12/18 08:42 99 10/12/18 08:35 75 173/67 H 10/12/18 08:00 97.9 F 75 20 184/76 H 99 Weight Admit Weight 125 lb Weight 124 lb 4.8 oz I&O: 10/11/18 10/12/18 10/13/18 06:59 06:59 06:59 Intake Total 900 795 Balance 900 795 Result Diagrams: 10/10/18 07:38 10/10/18 07:38 Phys Exam - Physical Examination Constitutional: NAD HEENT: PERRLA, moist MMs, sclera anicteric Neck: no JVD, supple Respiratory: no wheezing, no rales, no rhonchi Cardiovascular: RRR, no significant murmur, no rub Gastrointestinal: soft, non-tender, no distention, positive bowel sounds Musculoskeletal: no edema, pulses present Neurological: non-focal, normal sensation Lymphatic: no nodes Psychiatric: normal affect Skin: no rash, normal turgor Dx/Plan (1) Acute pyelonephritis Code(s): N10 - ACUTE PYELONEPHRITIS Status: Acute (2) Enteritis Code(s): K52.9 - NONINFECTIVE GASTROENTERITIS AND COLITIS, UNSPECIFIED Status : Acute (3) Staghorn calculus Code(s): N20.0 - CALCULUS OF KIDNEY Status: Acute (4) Alzheimer's dementia Code(s): G30.9 - ALZHEIMER'S DISEASE, UNSPECIFIED; F02.80 - DEMENTIA IN OTH DISEASES CLASSD ELSWHR W/O BEHAVRL DISTURB Status: Chronic (5) Anxiety and depression Code(s): F41.9 - ANXIETY DISORDER, UNSPECIFIED; F32.9 - MAJOR DEPRESSIVE DISORDER, SINGLE EPISODE, UNSPECIFIED Status: Chronic (6) Cholelithiases Code(s): K80.20 - CALCULUS OF GALLBLADDER W/O CHOLECYSTITIS W/O OBSTRUCTION Status: Chronic (7) Hypertension Code(s): I10 - ESSENTIAL (PRIMARY) HYPERTENSION Status: Chronic (8) Hypertensive urgency Code(s): I16.0 - HYPERTENSIVE URGENCY Status: Resolved - Plan cont current plan of care * medication reviewed as below * symptomatic treatment * see discharge wilder. Review of Systems - Review of Systems ENT: negative: Ear Pain, Ear Discharge, Nose Pain, Nose Discharge, Nose Congestion, Mouth Pain, Mouth Swelling, Throat Pain, Throat Swelling, Other Respiratory: negative: Cough, Dry, Shortness of Breath, Hemoptysis, SOB with Excertion, Pleuritic Pain, Sputum, Wheezing Cardiovascular: negative: chest pain, palpitations, orthopnea, paroxysmal nocturnal dyspnea, edema, light headedness, other Gastrointestinal: negative: Nausea, Vomiting, Abdominal Pain, Diarrhea, Constipation, Melena, Hematochezia, Other Genitourinary: negative: Dysuria, Frequency, Incontinence, Hematuria, Retention , Other Musculoskeletal: negative: Neck Pain, Shoulder Pain, Arm Pain, Back Pain, Hand Pain, Leg Pain, Foot Pain, Other Skin: negative: Rash, Lesions, Ian, Bruising, Other - Medications/Allergies Allergies/Adverse Reactions: Allergies Allergy/AdvReac Type Severity Reaction Status Date / Time No Known Drug Allergies Allergy Verified 10/08/18 05:10 Medications: Current Medications Acetaminophen (Tylenol) 650 mg PO Q4H PRN PRN Reason: Headache/Fever/Mild Pain (1-3) Last Admin: 10/11/18 20:53 Dose: 650 mg Acetaminophen (Tylenol) 650 mg AL Q4H PRN PRN Reason: Headache/Fever/Mild Pain (1-3) Bisacodyl (Dulcolax) 10 mg AL DAILYPRN PRN PRN Reason: Constipation Calcium Carbonate (Tums) 1,000 mg PO Q4H PRN PRN Reason: Heartburn or Indigestion Cholecalciferol (Vitamin D3) 1,000 units PO DAILY [facility] Last Admin: 10/12/18 08:35 Dose: 1,000 units Clonidine (Catapres) 0.1 mg PO Q4H PRN PRN Reason: Systolic BP > 180 Ferrous Sulfate (Feosol) 325 mg PO QAM[facility] Last Admin: 10/12/18 08:34 Dose: 325 mg Fluticasone Propionate (Flonase Nasal [place]) 0 gm NASAL DAILY [facility] Last Admin: 10/12/18 08:36 Dose: 1 spr Guaifenesin/Dextromethorphan (Diabetic Tussin Dm) 10 ml PO Q6H PRN PRN Reason: Cough Hydralazine HCl (Apresoline) 25 mg PO TID [facility] Last Admin: 10/12/18 08:35 Dose: 25 mg Hydralazine HCl (Apresoline) 10 mg SLOW IVP Q4H PRN PRN Reason: SBP Greater Than 180 Hydralazine HCl (Apresoline) 10 mg PO Q6H PRN PRN Reason: SBP >/=175, DBP >/= 105 Ceftriaxone Sodium 2 gm/ (Sodium Chloride) 100 mls @ 200 mls/hr IVPB DAILY [facility] Last Admin: 10/12/18 08:34 Dose: 100 mls Lisinopril (Zestril) 20 mg PO DAILY [facility] Last Admin: 10/12/18 08:35 Dose: 20 mg Loratadine (Claritin) 10 mg PO DAILY PRN PRN Reason: cough Metoprolol Tartrate (Lopressor) 25 mg PO BID [facility] Last Admin: 10/12/18 08:35 Dose: 25 mg Nitroglycerin (Nitrostat) 0.4 mg PO Q5MIN PRN PRN Reason: Chest Pain Ondansetron HCl (Zofran Odt) 4 mg PO Q6H PRN PRN Reason: Nausea/Vomiting Ondansetron HCl (Zofran) 4 mg IVP Q6H PRN PRN Reason: Nausea/Vomiting Potassium Chloride (Klor-Con 10) 10 meq PO QAM-WM [facility] Last Admin: 10/12/18 08:35 Dose: 10 meq Quetiapine Fumarate (Seroquel) 300 mg PO HS [facility] Last Admin: 10/11/18 20:52 Dose: 300 mg Rivastigmine (Exelon Patch) 9.5 mg TD DAILY [facility] Last Admin: 10/11/18 10:37 Dose: 9.5 mg Saccharomyces Boulardii (Florastor) 250 mg PO DAILY [facility] Last Admin: 10/12/18 08:34 Dose: 250 mg Senna/Docusate Sodium (Senokot S) 1 tab PO BID [facility] Last Admin: 10/12/18 08:35 Dose: 1 tab Sodium Chloride (Flush - Normal Saline) 10 ml IVF PRN PRN PRN Reason: Saline Flush Last Admin: 10/11/18 08:05 Dose: 10 ml
[2018-10-12] MEDS: Rivastigmine 9.5mg/24 Hour PATCH TD SCH (10:15)
--- NOTE | 2018-10-12 10:22 | DIS ---
DATE OF ADMISSION: 10/08/2018 DATE OF DISCHARGE: 10/12/2018 PRIMARY CARE PHYSICIAN: Dr. Dunham. DISCHARGE DISPOSITION: prison home. PRIMARY DISCHARGE DIAGNOSES: 1. Enteritis. 2. Acute pyelonephritis. 3. Staghorn calculi. 4. Hypertensive urgency. SECONDARY DISCHARGE DIAGNOSES: Hypertension, cholelithiasis, anxiety and depression, Alzheimer dementia. PRIMARY PROCEDURE/OPERATION: None. RADIOLOGICAL INVESTIGATION: Abdominal ultrasound showed cholelithiasis, abdominal x-ray, echocardiography showed normal EF. SIGNIFICANT LABORATORY DATA: Hemoglobin 10.5. INR 1.1. Creatinine 0.77. LFT, electrolytes normal. DISCHARGE MEDICATIONS: 1. Vitamin D3 1000 units p.o. daily. 2. Ferrous sulfate 325 mg p.o. daily. 3. Flonase nasal spray daily. 4. Hydralazine 25 mg b.i.d. 5. Lisinopril 20 mg daily. 6. Metoprolol 12.5 mg daily. 7. Remeron 45 mg daily. 8. Seroquel 200 mg at bedtime. 9. Exelon patch every day. 10. Potassium chloride 10 mEq p.o. daily. 11. Claritin 10 mg daily p.r.n. 12. Hydralazine 10 mg q.6 hourly p.r.n. 13. Robitussin p.r.n. 14. Zofran p.r.n. CONTRAINDICATIONS: None. CODE STATUS: Full code. INPATIENT ENDOSCOPY RN: Dr. Mayer was consulted for staghorn calculi. Dr. Singh was consulted for antibiotic management. TEST RESULTS PENDING ON DISCHARGE: None. ALLERGIES: NO KNOWN DRUG ALLERGIES. DISCHARGE PLAN: Posthospital, the patient is discharged back to detention. The patient will follow up with Dr. Mayer as instructed on November 08, 2018. The patient will make appointment with Dr. Singh. HOSPITAL COURSE: An 88-year-old female with above-mentioned medical problem, who was admitted by Dr. Daljit Meek. Please see his H and P for further details. On admission, the patient was having nausea, vomiting, and diarrhea. She was having enteritis. She had CT abdomen and pelvis, which showed gastroenteritis as well as pyelonephritis and staghorn calculi. She was treated with broad-spectrum antibiotic therapy. Culture was obtained. Subsequent cultures remain negative. She did not have any positive blood culture, but urine culture grew Klebsiella and gram-negative nakul. It was pansensitive. The patient's diarrhea improved. GI symptoms improved. Urology was following for staghorn calculi. The patient and family member decided to go with conservative therapy without any surgery. Dr. Singh recommended not to treat with antibiotic therapy at this point. On discharge, the patient is not given any antibiotic therapy as per ID recommendation. The patient is seen and examined at bedside today. Please see my progress note from today for further details. The patient is medically stable for discharge. Paperwork for discharge done and discharge medication reconciliation done. Job ID: [id number]
[2018-10-12 11:39] VITALS: BP 126/68; TEMP 98
== END 2018-10-12 12:04 | DRG 690 ==
LOC: ERS 23:09 → T4-B 10-08 03:29
PROVIDERS: ADMIT Internal Medicine; ATTEND Internal Medicine
DX: N10 Acute pyelonephritis (principal); I13.0 Hypertensive heart and chronic kidney disease with heart failure and stage 1 through stage 4 chronic kidney disease, or unspecified chronic kidney disease; N20.0 Calculus of kidney; K52.9 Noninfective gastroenteritis and colitis, unspecified; G30.9 Alzheimer's disease, unspecified; F02.80 Dementia in other diseases classified elsewhere, unspecified severity, without behavioral disturbance, psychotic disturbance, mood disturbance, and anxiety; I16.0 Hypertensive urgency; D50.9 Iron deficiency anemia, unspecified; K21.9 Gastro-esophageal reflux disease without esophagitis; F41.9 Anxiety disorder, unspecified; F32.9 Major depressive disorder, single episode, unspecified; I44.39 Other atrioventricular block; E86.0 Dehydration; N18.2 Chronic kidney disease, stage 2 (mild); K80.20 Calculus of gallbladder without cholecystitis without obstruction; I50.9 Heart failure, unspecified; B96.1 Klebsiella pneumoniae [K. pneumoniae] as the cause of diseases classified elsewhere; Z79.899 Other long term (current) drug therapy
CPT/HCPCS: 36415; 74018; 76705; 80048; 80053; 83605; 83735; 84484; 85025; 85610; 85730; 86850; 86900; 86901; 87040; 93005; 93306; 94760; J0696; J2543; J3490

== ENCOUNTER 2018-10-14 13:35 | Emergency (ER) | payer MEDICARE, MEDICAID ==
[2018-10-14 14:12] LABS: #Lymphocytes 0.8 thou/uL (1.20-3.40); #Monocytes 0.5 thou/uL (0.11-0.59); #Neutrophils 4.5 thou/uL (1.40-6.50); %Basophils 0.8 % (0.0-1.0); %Eosinophils 0.6 % (0.0-10.0); %Lymphocytes 13.4 % (21.0-51.0); %Monocytes 8.5 % (0.0-10.0); %Neutrophils 76.7 % (42.0-75.0); Hemoglobin 11.2 g/dL (12.0-16.0); Mean Corpuscular HGB CONC 31.7 g/dL (32.0-36.0); Mean Corpuscular Hemoglobin 28.3 pg (27.0-31.0); Mean Corpuscular Volume 89.2 fL (78.0-98.0); Mean Platelet Volume 8.6 fL (7.4-10.4); Platelet Count 171 thou/uL (130-400); RBC Distribution Width 12.8 % (11.5-14.5); Red Blood Cell (RBC) Count 3.96 mill/uL (4.20-5.40); White Blood Cell (WBC) Count 5.9 thou/uL (4.8-10.8)
[2018-10-14 14:29] LABS: ALT (SGPT) 10 U/L (8-55); AST (SGOT) 23 U/L (5-34); Albumin 4.3 g/dL (3.4-4.8); Alkaline Phosphatase 100 U/L (40-150); Anion Gap 13 mmol/L (10-20); BUN (Urea Nitrogen) 16 mg/dL (9.8-20.1); Bilirubin, Total 0.5 mg/dL (0.2-1.2); Calc. Creatinine Clearance 0 mL/min (70-130); Calcium 9.5 mg/dL (7.8-10.44); Carbon Dioxide 28 mmol/L (23-31); Chloride 104 mmol/L (98-107); Estimated GFR-MDRD 74; Glucose 101 mg/dL (83-110); Lipase 16 U/L (8-78); Potassium 4.4 mmol/L (3.5-5.1); Protein, Total 7.3 g/dL (6.0-8.3); Sodium 141 mmol/L (136-145)
--- NOTE | 2018-10-14 14:44 | RAD ---
Portable chest: HISTORY: Shortness of breath. COMPARISON: 10/07/2018 Lungs are clear. No infiltrate. Vascular markings upper normal and stable. No acute finding or interv al change. IMPRESSION: No acute finding
--- NOTE | 2018-10-14 15:29 | CT ---
CT ABDOMEN AND PELVIS WITHOUT IV CONTRAST: Date: 10/14/18 Multiple axial tomograms obtained through the abdomen and pelvis without IV enhancement. INDICATION: Abdominal pain. Comparison made to recent CT abdomen dated 10/07/18. FINDINGS: Lung bases are clear. Liver, spleen, and pancreas unremarkable. The large left staghorn calculus in the left renal pelvis and collecting structures again noted and u nchanged. No hydronephrosis. Renal cyst on the right is unchanged in appearance. Ureters unremarkable . Urinary bladder unremarkable. The gallbladder remains mildly distended and there is echogenic sludge and/or gravel layering depende ntly in the gallbladder, unchanged from recent exam. Small bowel loops normal caliber. Images through the pelvis show a small amount of free fluid. Patient appears post hysterectomy. IMPRESSION: No significant change from recent exam. The left renal staghorn calculus is again noted. Distention o f the gallbladder with sludge is unchanged in appearance. Right renal cystic lesion is again noted. S mall amount of free fluid in pelvis is again noted, although less today than on prior study. POS: OFF
[2018-10-14 15:54] LABS: Bilirubin Negative (Negative); Blood, Urine Small (Negative); Clarity CLOUDY (Clear); Glucose, Urine (Dipstick) Negative (Negative); Leukocyte Moderate (Negative); Nitrite Negative (Negative); Protein, Urine (Dipstick) 30 mg/dL (Neg-Trace); Specific Gravity, Urine 1.021 (1.002-1.036); Urobilinogen 0.2 mg/dL (0.2-1.0); pH, Urine 5.5 (5.0-9.0)
[2018-10-14 15:55] LABS: Pathc Cast-AUWi Flag 1.08 (0-2.49); Squamous Epithelial 0-3 HPF (0-3); WBC/HPF 21-50 HPF (0-3)
[2018-10-14 16:08] LABS: Bacteria/HPF Rare-Few HPF (None Seen); Hyaline Casts/LPF 0-3 HYALINE CAST LPF (0-3 Hyaline); Manual Microscopic Reviewed? No Path Casts Seen; Renal Epithelial None Seen HPF (0-3); Transitional Epithelial NONE SEEN HPF (0-3)
== END 2018-10-14 18:50 ==
LOC: ERS 13:35
DX: R11.2 Nausea with vomiting, unspecified (principal); N39.0 Urinary tract infection, site not specified; F03.90 Unspecified dementia, unspecified severity, without behavioral disturbance, psychotic disturbance, mood disturbance, and anxiety; I11.0 Hypertensive heart disease with heart failure; I50.9 Heart failure, unspecified; K21.9 Gastro-esophageal reflux disease without esophagitis; D50.9 Iron deficiency anemia, unspecified; F41.9 Anxiety disorder, unspecified; F32.9 Major depressive disorder, single episode, unspecified; Z79.899 Other long term (current) drug therapy
CPT/HCPCS: 36415; 51701; 71045; 74176; 80053; 81003; 81015; 83690; 84484; 85025; 87086; 93005; 96360; 96361; A4353

== ENCOUNTER 2019-12-01 16:44 | Inpatient (IN) | payer MEDICARE, MEDICAID, OTHER ==
[2019-12-01] MEDS ORDERED: Sodium Chloride 0.9% 100 ML ONE (18:03)
[2019-12-01] MEDS ORDERED: Piperacillin/Tazobactam 3.375 GM VIAL ONE (18:03)
[2019-12-01] MEDS ORDERED: Acetaminophen 650 MG Suppository PR PRN (18:30)
[2019-12-01] MEDS ORDERED: Ondansetron PF 4 MG/2 ML Vial IVP PRN (18:30)
[2019-12-01] MEDS ORDERED: Guaifenesin DM 100-10/5 ML UDCUP PO PRN (18:30)
--- NOTE | 2019-12-01 19:45 | HP ---
REASON FOR ADMISSION: Sepsis, severe dehydration with acute kidney injury, possible acute cholecystitis. HISTORY OF PRESENTING ILLNESS: The patient was transferred from [place] [facility] for higher level of care. The patient is a resident of [facility]. She has not been eating or drinking for the last 2 days. She also developed a temperature and was transferred to [place] [facility]. She was evaluated there with initial labs and CAT scan, which was suspicious for possible acute cholecystitis, acute renal failure, and was transferred here for higher level of care. Currently, the patient is not complaining of any abdominal pain as such. She apparently had abdominal pain at [place] [facility]. She is clinically very dry. She responds to verbal questions mostly correctly. She is not fully oriented though. No complaints of chest pain or palpitation. No complaints of nausea at present. PAST MEDICAL AND SURGICAL HISTORY: History of CHF, hypertension, dementia, chronic anemia, staghorn left renal calculus in the past, GERD, anxiety, depression, hip replacement. Has sternotomy done, it is unclear if it is for CABG. 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 CURRENT MEDICATIONS: The patient is on; 1. Ferrous sulfate 325 mg daily. 2. Lasix 20 mg daily. 3. Potassium chloride extended release 20 mEq p.o. daily. 4. Remeron 45 mg p.o. at bedtime. 5. Vitamin D3 at 1000 units p.o. daily. 6. Hydralazine 10 mg twice daily. 7. Lisinopril 20 mg two times daily. 8. Metoprolol tartrate 50 mg p.o. twice daily. 9. Seroquel 25 mg p.o. two times daily. 10. DuoNebs p.r.n. 11. Zofran p.r.n. ALLERGIES: NO KNOWN DRUG ALLERGIES. PERSONAL HISTORY: Does not abuse alcohol or drugs. No history of smoking. The patient is currently a resident of [facility]. FAMILY HISTORY: The patient is 1 of 5 siblings, she is the oldest. She thinks 3 of her siblings are , there are 2 left, but she is not in touch with them. The patient has a daughter, Ms. Kerr. CODE STATUS: The patient is do not attempt to resuscitate. This was discussed with Ms. Jr Kerr, number to reach her is [phone]. Ms. Kerr is also the power of attorney recruiter and the only daughter for the patient. REVIEW OF SYSTEMS: Cannot be obtained as patient is not fully oriented. PHYSICAL EXAMINATION: GENERAL: The patient is an 89-year-old female who is currently not in any distress. VITAL SIGNS: Blood pressure 130/72, pulse 86 per minute, respiratory rate 18 per minute, temperature 98.2 degrees Fahrenheit here, but was febrile at [place] [facility]. Saturating 97% on room air. NECK: Supple. No elevated JVD. HEENT: Eyes; extraocular muscles intact. Pupils reacting to light. Oral cavity, mucous membranes are very dry. No exudates or congestion. CARDIOVASCULAR SYSTEM: S1, S2 heard. Tachycardic. No murmur. RESPIRATORY SYSTEM: Air entry 1+ bilateral. No rales or rhonchi. ABDOMEN: Soft. There is mild tenderness in the lower quadrants as such. No rigidity or guarding. No specific tenderness in the right upper quadrant. Bowel sounds are heard. EXTREMITIES: No peripheral edema or calf tenderness. VASCULAR SYSTEM: Peripheral pulses 1+ bilateral. No ischemic ulcerations or gangrene. CENTRAL NERVOUS SYSTEM: No gross focal motor deficits noted. The patient is alert and awake and is oriented x2. PSYCHIATRIC SYSTEM: No obvious hallucinations or delusions. LABORATORY DATA: CT of the abdomen and pelvis without contrast done shows moderately distended gallbladder with hyperdense material and pericholecystic fluid/pericholecystic fat stranding. Correlate for possible cholecystitis. Mildly enlarged central abdominal mesenteric lymph nodes with stranding of the central abdominal mesentry. There is re-demonstration of staghorn calculus on the CAT scan occupying the left renal pelvis. There is no associated obstructive uropathy. There is mild mucosal thickening and adjacent mesenteric fat stranding involving the duodenum. Chest x-ray done shows no acute finding. White count of 22, H and H 13 and 43, platelet count 181 with 81% neutrophils. Serum bicarb 22, BUN 64, creatinine 5.0, serum glucose 82. AST 83, ALT 128, alkaline phosphatase 210. Troponin I 0.03. Albumin is 4.0. Lipase is 874. UA shows small bilirubin, large leuk esterase, 4+ bacteria. EKG shows sinus rhythm at 86 beats per minute. CLINICAL IMPRESSION AND PLAN: Patient will be admitted to medical floor for sepsis, acute renal failure, possible cholecystitis, and severe dehydration. So far, she has gotten only 1 L of normal saline all through her [place] [facility] and currently here at [facility]. She is supposed to get 2 more liters bolus in the emergency room and continue on normal saline at 100 mL per hour. She will be on meropenem 1 g q.12 hourly in view of renal dysfunction. I have spoken to Dr. Potts for Nephrology consultation. Dr. Cage has been consulted from ER. We will also consult Dr. Chan Silver in view of elevated lipase for possible medical management of acute cholecystitis. We will await Dr. Cage's opinion and likely he will talk to Interventional Radiology for possible cholecystostomy tube if needed. There is no right upper quadrant tenderness clinically at present. We will also place her on Protonix 40 mg daily and a small dose of Lopressor daily. Right upper quadrant ultrasound will be obtained. She will be on clear liquid diet for now. I have discussed in detail about her labs and the current plan with patient's daughter , Ms. Kerr, who is also the power of attorney recruiter for her. She clearly states that she does not want any resuscitation done and she is a full DNAR. She would like to come and she wants her to be alive hopefully, so she can see her in the morning. If she were to get worse, staff in the night should give her a call so she can come and visit her. Job ID: [id number] MTDD
--- NOTE | 2019-12-01 19:52 | ULT ---
ULTRASOUND ABDOMEN LIMITED: (RIGHT UPPER QUADRANT) DATE: 12/01/2019 HISTORY: 89-year-old female with right upper quadrant abdominal pain FINDINGS: Gallbladder:Distended lumen. Mural thickening of at least 4 mm. Cluster of multiple mobile small gall stones at the fundus. Sludge in the lumen. Tiny amount of pericholecystic fluid abutting fundus. Common duct: 8 mm. Liver:Normal size and echogenicity Pancreas:No gross sonographic abnormality. Right kidney:No hydronephrosis. 3 x 3 x 2.5 cm cyst at lower pole IMPRESSION: 1) evidence for acute cholecystitis 2) cholelithiasis 3.) Dilated common duct caliber of 8 mm raising the possibility of occult choledocholithiasis.
[2019-12-01 20:29] LABS: FSP-Qualitative ABNORMAL (Normal); FSP-Semiquantitative >=5 & <20 mcg/mL (Less than 5)
[2019-12-01 20:30] LABS: Troponin I 0.019 ng/mL (< 0.028)
[2019-12-01 20:30] LABS: Fibrinogen 576 mg/dL (253-463); Platelet Count 143 thou/uL (130-400)
[2019-12-01 20:31] LABS: INR-International Normal Ratio 1.1; Prothrombin Time 14.6 sec (12.0-14.7)
[2019-12-01 20:32] LABS: PTT 33.1 sec (22.9-36.1)
[2019-12-01 20:38] LABS: D-Dimer Test 3.12 *mcg/mL (0.27-0.43)
[2019-12-01] MEDS: Sodium Chloride 0.9% 1,000 ML IV SCH (22:35)
[2019-12-01] MEDS: Meropenem 500 MG in Sodium Chloride 0.9% 100 ML IVPB SCH (22:35)
[2019-12-01] MEDS: Heparin 5,000 UNITS/ML VIAL SC SCH (22:36)
[2019-12-02 00:53] VITALS: BMI 20.9
[2019-12-02 05:44] LABS: #Lymphocytes 0.8 thou/uL (1.20-3.40); #Monocytes 0.9 thou/uL (0.11-0.59); #Neutrophils 9.4 thou/uL (1.40-6.50); %Basophils 0.1 % (0.0-1.0); %Eosinophils 0.3 % (0.0-10.0); %Lymphocytes 7.1 % (21.0-51.0); %Monocytes 8.2 % (0.0-10.0); %Neutrophils 84.3 % (42.0-75.0); Hemoglobin 10.9 g/dL (12.0-16.0); Mean Corpuscular HGB CONC 28.5 g/dL (32.0-36.0); Mean Corpuscular Hemoglobin 25.6 pg (27.0-31.0); Mean Corpuscular Volume 89.9 fL (78.0-98.0); Mean Platelet Volume 9.2 fL (7.4-10.4); Platelet Count 133 thou/uL (130-400); RBC Distribution Width 13.9 % (11.5-14.5); Red Blood Cell (RBC) Count 4.25 mill/uL (4.20-5.40); White Blood Cell (WBC) Count 11.2 thou/uL (4.8-10.8)
[2019-12-02 06:04] LABS: ALT (SGPT) 66 U/L (8-55); AST (SGOT) 34 U/L (5-34); Albumin 2.9 g/dL (3.4-4.8); Alkaline Phosphatase 164 U/L (40-110); Anion Gap 18 mmol/L (10-20); BUN (Urea Nitrogen) 68 mg/dL (9.8-20.1); Bilirubin, Total 0.6 mg/dL (0.2-1.2); Calc. Creatinine Clearance 7 mL/min (70-130); Calcium 7.2 mg/dL (7.8-10.44); Carbon Dioxide 17 mmol/L (23-31); Chloride 110 mmol/L (98-107); Estimated GFR-MDRD 8; Globulin 2.9 g/dL (2.4-3.5); Glucose 79 mg/dL (83-110); Potassium 4.9 mmol/L (3.5-5.1); Protein, Total 5.8 g/dL (6.0-8.3); Sodium 140 mmol/L (136-145)
[2019-12-02] MEDS ORDERED: Sodium Chloride 0.9% 500 ML IV SCH (06:30)
--- NOTE | 2019-12-02 09:05 | CON ---
DATE OF CONSULTATION: CHIEF COMPLAINT: Nausea, vomiting, and dehydration. HISTORY OF PRESENT ILLNESS: The patient is an 89-year-old female with known dementia, lives in a long term. Over the last 3 days, she has been having nausea and vomiting. Some abdominal pain. She has not been eating or drinking. She was sent to the emergency room. PAST MEDICAL HISTORY: Congestive heart failure, hypertension, dementia, gastroesophageal reflux, and anxiety. PAST SURGICAL HISTORY: She has had a hip replacement. 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 MEDICATIONS: 1. Lasix. 2. Potassium. 3. Remeron. 4. Vitamin D. 5. Hydralazine. 6. Lisinopril. 7. Metoprolol. 8. Seroquel. 9. DuoNeb. 10. Zofran. FAMILY HISTORY: Noncontributory. SOCIAL HISTORY: She lives in a long term. She has one daughter. No tobacco or alcohol. PHYSICAL EXAMINATION: VITAL SIGNS: Temperature is 98.3, pulse 103, blood pressure 162/80, and she has 94% saturation. GENERAL: She is a thin female. She is pretty confused. There is no evidence of jaundice. LUNGS: Clear. HEART: Regular rate and rhythm. ABDOMEN: Soft, very minimal tenderness in right upper quadrant. EXTREMITIES: Unremarkable. LABORATORY DATA: Her white count is 11, H/H of 10 and 38, and platelet count 133. Electrolytes; her glucose is 79, her creatinine is 5.2, BUN is 68, T-bilirubin 0.6, AST 34, ALT of 65, and alkaline phosphatase 164. Ultrasound shows cholelithiasis with some sludge, mild gallbladder wall thickening, common bile duct is 8 mm. ASSESSMENT: Possible acute cholecystitis, but multiple medical problems including renal failure, heart failure, brain failure, and dementia. PLAN: HIDA scan. If her bile duct is obstructed, we would recommend a cholecystostomy tube. If her gallbladder is draining, continued IV antibiotics. Job ID: [id number]
[2019-12-02] MEDS: Heparin 5,000 UNITS/ML VIAL SC SCH ×2 (09:24→20:20)
[2019-12-02] MEDS: Metoprolol Tartrate 25 MG TAB PO SCH ×2 (09:29→13:30)
[2019-12-02] MEDS: Meropenem 500 MG in Sodium Chloride 0.9% 100 ML IVPB SCH ×2 (09:29→20:19)
[2019-12-02] MEDS: Sodium Chloride 0.9% 1,000 ML IV SCH ×2 (09:34→23:50)
[2019-12-02] MEDS ORDERED: Lorazepam 2 MG/ML VIAL SLOW IVP SCH (10:45)
--- NOTE | 2019-12-02 11:01 | PDOC.HOSPP ---
- Subjective Encounter Date: 12/02/19 Encounter Time: 07:45 Subjective: awake, no sob has ruq pain this am, no nausea - Objective Vital Signs & Weight: Vital Signs (12 hours) Temp Pulse Resp BP Pulse Ox 12/02/19 07:38 98.3 F 103 H 18 162/80 H 94 L 12/02/19 04:50 97.9 F 92 16 167/84 H 93 L 12/02/19 00:08 98.2 F 93 18 164/80 H 95 Weight Weight 133 lb 11.2 oz I&O: 12/01/19 12/02/19 12/03/19 06:59 06:59 06:59 Intake Total 1350 Balance 1350 Result Diagrams: 12/02/19 05:22 12/02/19 05:22 Hospitalist ROS - Medication Medications: Active Medications Generic Name Dose Route Start Last Admin Trade Name Freq PRN Reason Stop Dose Admin Heparin Sodium (Porcine) 5,000 units 12/01/19 21:00 12/02/19 09:24 Heparin SC 5,000 units BID GUIDO Administration Meropenem 500 mg/ Sodium 100 mls @ 200 mls/hr 12/01/19 21:00 12/02/19 09:29 Chloride IVPB 100 mls Q12HR GUIDO Administration Sodium Chloride 1,000 mls @ 100 mls/hr 12/01/19 18:30 12/02/19 09:34 Normal Saline 0.9% IV 1,000 mls .Q10H GUIDO Administration Metoprolol Tartrate 12.5 mg 12/02/19 09:00 12/02/19 09:29 Lopressor PO Not Given DAILY GUIDO Sodium Chloride 10 ml 12/01/19 21:00 12/02/19 09:29 Flush - Normal Saline IVF 10 ml Q12HR GUIDO Administration - Exam General Appearance: ill appearing Eye: PERRL, anicteric sclera ENT: normocephalic atraumatic, dry oral mucosa Neck: supple, no JVD Heart: RRR, no murmur Respiratory: no wheezes, no rales Gastrointestinal: soft, non-distended, normal bowel sounds, no rigidity Gastrointestinal - other findings: ruq tenderness to palp Extremities: no cyanosis, no edema Neurological: cranial nerve grossly intact, no focal deficits Psychiatric: normal affect, A&O x 3 Hosp A/P (1) Acute cholecystitis Code(s): K81.0 - ACUTE CHOLECYSTITIS Status: Acute (2) Sepsis Code(s): A41.9 - SEPSIS, UNSPECIFIED ORGANISM Status: Acute Qualifiers: Sepsis type: sepsis due to unspecified organism Sepsis acute organ dysfunction status: with acute organ dysfunction Severe sepsis acute organ dysfunction type: acute renal failure Severe sepsis shock status: without septic shock (3) Acute renal failure Status: Acute Qualifiers: Acute renal failure type: with acute tubular necrosis Qualified Code(s): N17.0 - Acute kidney failure with tubular necrosis (4) Severe dehydration Code(s): E86.0 - DEHYDRATION Status: Acute (5) Anxiety and depression Code(s): F41.9 - ANXIETY DISORDER, UNSPECIFIED; F32.9 - MAJOR DEPRESSIVE DISORDER, SINGLE EPISODE, UNSPECIFIED Status: Chronic (6) Hypertension Code(s): I10 - ESSENTIAL (PRIMARY) HYPERTENSION Status: Chronic Qualifiers: Hypertension type: essential hypertension Qualified Code(s): I10 - Essential (primary) hypertension (7) Dementia Code(s): F03.90 - UNSPECIFIED DEMENTIA WITHOUT BEHAVIORAL DISTURBANCE Status: Chronic Qualifiers: Dementia type: Alzheimer's disease Dementia behavioral disturbance: without behavioral disturbance - Plan is on meropenem based on renal function creatinine is still high around 5, on iv fluids, watch for volume overload for hida scan, if +ve will need cholecystostomy tube will update daughter later today echo for valvular function and ef, needs iv fluids for arf. hemostable PT to mobilize as tolerated prelim blood cs are -ve
--- NOTE | 2019-12-02 12:33 | CON ---
DATE OF CONSULTATION: HISTORY OF PRESENT ILLNESS: Ms. Norris is an 89-year-old white female from [place] and was admitted for sepsis syndrome with acute kidney injury. Creatinine was noted to be elevated during the initial evaluation at the emergency room in [place]. She had a CAT scan of the abdomen, which showed possible acute cholecystitis. She was also noted to be in acute kidney injury. Of interest, this patient previously has had acute kidney injury and was temporarily on dialysis. We are now being consulted for further management of the patient's acute kidney injury. REVIEW OF SYSTEMS: As per previous history, positive for decreased p.o. intake. Positive for nausea. Positive for abdominal pain, but no shortness of breath. MEDICATIONS: Home medications included; 1. Ferrous sulfate 325 mg tablet once a day. 2. Lasix 20 mg daily. 3. KCl 20 mEq once a day. 4. Remeron 45 mg at bedtime. 5. Vitamin D3 of 1000 units daily. 6. Hydralazine 10 mg b.i.d. 7. Lisinopril 20 mg b.i.d. 8. Metoprolol tartrate 50 mg twice daily. 9. Seroquel 25 mg two times daily. 10. DuoNeb p.r.n. Current medications include; 1. Heparin 5000 units subcu b.i.d. 2. Meropenem 500 mg IV q.12. 3. Lopressor 12.5 mg p.o. b.i.d. 4. Normal saline 100 mL/h. PAST MEDICAL HISTORY: Coronary artery disease, hypertension, status post acute kidney injury, agitation/anxiety, chronic anemia, history of dementia, and status post CHF. PAST SURGICAL HISTORY: Includes status post hip replacement, status post myxoma surgery - cardiac. SOCIAL HISTORY: The patient lives in [place]. She is in shelter. One child. No alcohol or tobacco use. ALLERGIES: UNKNOWN. TRAUMA: None. IMMUNIZATIONS: Up-to-date. HOSPITALIZATIONS: Please see past medical history. FAMILY HISTORY: No family history of ESRD. PHYSICAL EXAMINATION: VITAL SIGNS: Blood pressure 162/80, heart rate 103, respiratory rate 18, temperature 98.3, and O2 saturation 94%. GENERAL: The patient is agitated, awake, but not following commands. SKIN: Adequate turgor. HEENT: She has a pinkish conjunctivae. Anicteric sclerae. NECK: No neck mass. No carotid bruits. No JVD. CHEST: No deformities. LUNGS: Decreased breath sounds. HEART: Normal sinus rhythm. No murmur. No gallops. No rubs. ABDOMEN: Globular, soft, and nontender. No masses. EXTREMITIES: No edema. No deformities. DIAGNOSTIC DATA: Laboratories of December 02, 2019; white count 11.2, hemoglobin 10.9. Sodium 140, potassium 4.9, chloride 110, carbon dioxide 17, BUN 68, creatinine 5.22, calcium 7.2, AST 34, ALT 66, alkaline phosphatase 164, and albumin is 2.9. Further review of her serum creatinine shows the following: On December 01, 2019, 5.03; October 14, 2018, creatinine 0.74; June 02, 2017, creatinine 0.86. On December 01, 2019; CT scan of the abdomen and pelvis showed inflammatory changes in the epigastric/right upper quadrant ? of cholecystitis. Kidney show staghorn calculus occupying the left renal pelvis. This is chronic in nature. No evidence of obstructive uropathy. Stable atrophy of the left kidney. There is hypodensity in the right renal cortex compatible with a renal cyst. Urinalysis of December 01, 2019, specific gravity was 1.025, protein greater than 300, rbc 4 to 6, wbc greater than 50, and bacteria 4+. ASSESSMENT: 1. Sepsis syndrome - currently on empiric IV antibiotics. Continue supportive care. HIDA scan has been suggested by Surgery and GI - to rule out an acute cholecystitis with this patient. 2. Acute kidney injury, consider hemodynamically-mediated renal dysfunction. The patient has received aggressive volume repletion on admission and at the ER. However, creatinine remains unimproved. Should the renal function remain unimproved or further worsen, we may need to consider dialytic intervention. For the moment, there is no indication for any acute dialysis at the present time with this patient. She is not in volume overload and her potassium is still noted to be within normal. Continue current IV volume repletion. Continue to optimize hemodynamics. We will recheck basic metabolic panel and CBC in a.m. Job ID: [id number]
--- NOTE | 2019-12-02 14:35 | NM ---
NUCLEAR MEDICINE HIDA SCAN: HISTORY: Evaluate for acute cholecystitis. TECHNIQUE: The patient was pretreated with 1.2 mcg of CCK intravenously 30 minutes prior to examinati on Patient was administered 4.5 mCi of technetium 99m mebrofenin intravenously. FINDINGS: Uptake of the radiotracer by the hepatic parenchyma. There is excretion of radiotracer into the intra hepatic biliary system. Passage of radiotracer from the common bile duct into small bowel loops. Localization of the radiotracer in the gallbladder IMPRESSION: No scintigraphic evidence of acute cholecystitis Transcribed Date/Time: 12/02/2019 3:49 PM
--- NOTE | 2019-12-02 16:53 | CON ---
DATE OF CONSULTATION: 12/02/2019 REQUESTING PHYSICIAN: Dr. Webb. REASON FOR CONSULTATION: Pancreatitis and elevated LFTs. HISTORY OF PRESENT ILLNESS: Felipe Norris is an 89-year-old woman with dementia who was transferred here yesterday from the [facility] with concerns for anorexia and dehydration. Evidently, her oral intake had really declined over the past couple of days and she was getting low-grade fevers. At the [facility], CT suggested possible cholecystitis with pericholecystic fluid, gallbladder distention and stones and also some thickening and stranding in the duodenal area. She was noted to be septic with WBC at 22.5, and acute kidney injury with a creatinine 5.22. She was transferred here for further evaluation and management. Since yesterday, she has been getting fluid resuscitation and being treated with meropenem. Notably, her lipase level is elevated to 874, but LFTs have declined since yesterday. She does have some tenderness to palpation of the abdomen which she can express upon palpation, but otherwise she is not really answering questions appropriately. She was evaluated by Dr. Cage, who ordered a HIDA scan. HIDA scan just came back showing no scintigraphic evidence of acute cholecystitis with good gallbladder filling and emptying through the common bile duct into the duodenum. REVIEW OF SYSTEMS: Unable to obtain complete review of systems due to the patient's altered mental status. PAST MEDICAL HISTORY: CHF, hypertension, dementia, chronic anemia, left staghorn ureteral calculus, GERD, depression and anxiety, hip replacement, cardiac myxoma surgery. ALLERGIES: NO KNOWN DRUG ALLERGIES. MEDICATIONS: Outpatient medications: 1. Ferrous sulfate 325 mg daily. 2. Lasix 20 mg daily. 3. Potassium 20 mEq daily. 4. Remeron 45 mg at bedtime. 5. Vitamin D3 1000 units daily. 6. Hydralazine 10 mg twice daily. 7. Lisinopril 20 mg twice daily. 8. Metoprolol 50 mg twice daily. 9. Seroquel 25 mg twice daily. 10. DuoNebs p.r.n. 11. Zofran p.r.n. Inpatient medications: 1. Meropenem 500 mg every 12 hours IV. SOCIAL HISTORY: The patient is a resident of [facility]. No smoking, alcohol, or drug use. FAMILY HISTORY: Noncontributory. Code status, the patient is do not resuscitate status. PHYSICAL EXAMINATION: VITAL SIGNS: Temperature 98.3, pulse 103, blood pressure 162/80, 94% oxygen saturation on room air. GENERAL: A frail 89-year-old woman lying in bed comfortably, in no distress. MENTAL: She does not answer questions appropriately. She is somnolent but easily arousable. SKIN: She is a bit pale. No jaundice. No rashes were palpable. EYES: No scleral icterus. Extraocular movements intact. ENT: Mucous membranes moist. No oral lesions. LYMPH: No submandibular or supraclavicular lymphadenopathy. THYROID: Nontender to palpation. HEART: Regular rate and rhythm. LUNGS: Clear to auscultation bilaterally. ABDOMEN: Bowel sounds present. Soft. Some tenderness to palpation on the right side of the abdomen but no guarding, rebound, tenderness. EXTREMITIES: No peripheral edema. VESSELS: Radial pulses 2+ bilaterally. NEUROLOGIC: Cranial nerves 2 through 12 intact bilaterally. No focal deficits. LABORATORY DATA: WBC initially 22.5, now down to 11.2; hemoglobin 10.9; platelets 133. INR 1.1. D-dimer 3.12. CRP 19.44. Sodium 140, potassium 4.9, BUN 68, creatinine 5.22. Lactic acid initially 1.8, now down to 0.8. Lipase 874. Total bilirubin initially 0.8, now 0.6. Alkaline phosphatase down from 210 to 164, AST down from 83 to 34, ALT down from 128 to 66. Blood cultures show no growth to date. IMAGING STUDIES: Outside CT of the abdomen demonstrated changes consistent with cholecystitis with pericholecystic fluid, gallbladder distention and gallstones. There is mild thickening and stranding in the region of the duodenum. Abdominal ultrasound here again showed distended gallbladder with gallbladder wall thickening, some pericholecystic fluid, stones and sludge within the gallbladder fundus. Common bile duct 8 mm in diameter. Normal appearing liver on the ultrasound. ASSESSMENT AND PLAN: 1. Biliary pancreatitis. 2. Cholelithiasis. 3. Sepsis with acute kidney injury. 4. Elevated LFTs, improving. She just came back from a HIDA scan and I note that this shows good radiotracer excretion into and out of the gallbladder and finally into the duodenum. I think it is likely that the patient passed a gallstone or some sludge and that is what induced this episode of biliary pancreatitis. Regardless of whether she has acute cholecystitis or not, she is certainly going to be at risk for future attacks if she does not have a cholecystectomy. I note mild bile duct dilation, but with improving LFTs at this point, I see no indication for ERCP. If the LFTs were to bump up significantly along with worsening abdominal pain, then I would recommend getting MRCP imaging for better evaluation of the common bile duct, rather than proceeding with ERCP. Dr. Cage has evaluated the patient and it does not appear she is the best surgical candidate at any rate. For now, I agree with current measures including the IV antibiotics as well as fluid resuscitation. GI can follow along tomorrow. Thank you for the consultation. Please call anytime with questions or concerns. Job ID: [id number]
[2019-12-03 05:30] LABS: #Eosinphils 0.1 thou/uL (0.0-0.7); #Lymphocytes 0.9 thou/uL (1.20-3.40); #Monocytes 0.8 thou/uL (0.11-0.59); #Neutrophils 6.3 thou/uL (1.40-6.50); %Basophils 0.4 % (0.0-1.0); %Eosinophils 0.6 % (0.0-10.0); %Lymphocytes 11.2 % (21.0-51.0); %Monocytes 9.7 % (0.0-10.0); %Neutrophils 78.2 % (42.0-75.0); Hemoglobin 10.3 g/dL (12.0-16.0); Mean Corpuscular HGB CONC 31.1 g/dL (32.0-36.0); Mean Corpuscular Hemoglobin 27.8 pg (27.0-31.0); Mean Corpuscular Volume 89.4 fL (78.0-98.0); Mean Platelet Volume 9.1 fL (7.4-10.4); Platelet Count 130 thou/uL (130-400); RBC Distribution Width 13.8 % (11.5-14.5); Red Blood Cell (RBC) Count 3.69 mill/uL (4.20-5.40)
[2019-12-03 05:56] LABS: ALT (SGPT) 41 U/L (8-55); AST (SGOT) 18 U/L (5-34); Albumin 2.6 g/dL (3.4-4.8); Alkaline Phosphatase 145 U/L (40-110); Anion Gap 16 mmol/L (10-20); BUN (Urea Nitrogen) 72 mg/dL (9.8-20.1); Bilirubin, Total 0.4 mg/dL (0.2-1.2); Calc. Creatinine Clearance 6 mL/min (70-130); Calcium 7.1 mg/dL (7.8-10.44); Carbon Dioxide 16 mmol/L (23-31); Chloride 113 mmol/L (98-107); Estimated GFR-MDRD 7; Globulin 2.6 g/dL (2.4-3.5); Glucose 96 mg/dL (83-110); Lipase 108 U/L (8-78); Potassium 4.3 mmol/L (3.5-5.1); Protein, Total 5.2 g/dL (6.0-8.3); Sodium 141 mmol/L (136-145)
[2019-12-03] MEDS: Metoprolol Tartrate 25 MG TAB PO SCH (08:17)
[2019-12-03] MEDS: Heparin 5,000 UNITS/ML VIAL SC SCH ×2 (08:17→22:14)
[2019-12-03] MEDS: Meropenem 500 MG in Sodium Chloride 0.9% 100 ML IVPB SCH ×2 (08:19→22:15)
--- NOTE | 2019-12-03 09:07 | PRG ---
DATE OF SERVICE: 12/03/2019 SUBJECTIVE: Ms. Norris denies any abdominal pain or nausea today. She has been tolerating her clear liquid diet since last night. She is somewhat irritable and slightly combative with nursing staff. OBJECTIVE: VITAL SIGNS: Temperature 98.1, pulse 85, blood pressure 161/68, and 96% oxygen saturation on room air. GENERAL: No acute distress, sitting up in bed comfortably. HEART: Regular rate and rhythm. LUNGS: Clear to auscultation bilaterally. ABDOMEN: Bowel sounds present. Soft and nontender to palpation. EXTREMITIES: No peripheral edema. LABORATORY STUDIES: WBC down to 8.0, hemoglobin 10.3 platelets 130. Sodium 141, potassium 4.3, BUN up to 72, creatinine up to 5.91, total bilirubin 0.4, alkaline phosphatase down to 145, AST normalized to 18, ALT normalized to 41, lipase down to 108, albumin 2.6. ASSESSMENT AND PLAN: 1. Biliary pancreatitis, clinically resolved, mild episode. 2. Cholelithiasis. 3. Elevated LFTs, now normalized. 4. Acute kidney injury. I think it is most likely that the patient passed a stone causing mild episode of biliary pancreatitis, which appears to be resolving. LFTs have now nearly normalized with no ongoing symptoms and declining LFTs, there is no indication to proceed with endoscopic retrograde cholangiopancreatography. If the patient were to have recurrent attacks, MRCP imaging would be appropriate. I see no contraindication to advancing her diet further as tolerated today. Nephrology is following for the acute kidney injury. 5. GI will sign off, but please call back anytime with questions or concerns. Job ID: [id number]
[2019-12-03] MEDS: Sodium Bicarbonate 150 MEQ in Dextrose 5% in Water 1,000 ML IV SCH (09:59)
[2019-12-03] MEDS: Albumin 25% 25 GM/100 ML BOT IVPB SCH ×3 (10:01→23:00)
--- NOTE | 2019-12-03 10:05 | PRG ---
DATE OF SERVICE: 12/03/2019 SUBJECTIVE: Ms. Norris is an 89-year-old white female, who was admitted for sepsis syndrome. She also had abdominal pain with abnormal imaging. HIDA scan was done, which was negative. GI has been consulted. The feeling is that she may have had biliary pancreatitis, which is now resolved. She also had an incidental finding of cholelithiasis. In addition, the LFTs have now normalized. We are following up this patient for acute kidney injury, that we feel could be a hemodynamically-mediated renal dysfunction. Renal function still remains unimproved, and we are considering the possibility of ATN. A urinalysis has been ordered. For the moment, we have decided to give albumin infusion with this patient. She has received IV hydration in the last 24 to 48 hours. OBJECTIVE: VITAL SIGNS: Blood pressure is 183/92, heart rate 91, respiratory rate 18, temperature 99.8, O2 saturation 95%. GENERAL: The patient is awake, but confused, not in distress. SKIN: Adequate turgor. HEENT: Pinkish conjunctivae. Anicteric sclerae. NECK: No neck mass. No carotid bruits. No JVD. CHEST: No deformities. LUNGS: Clear breath sounds. HEART: Normal sinus rhythm. No murmur. No gallops. No rubs. ABDOMEN: Globular. Soft. Nontender. No masses. EXTREMITIES: No edema. No deformities. MEDICATIONS: Medications of December 03, 2019, were reviewed. LABORATORY DATA: Laboratories of December 03, 2019: White count 8, hemoglobin 10.3. Sodium 141, potassium 4.3, chloride 113, carbon dioxide 16, BUN 72, creatinine 5.91, calcium 7.1, AST 18, ALT 41, albumin 2.6. December 01, 2019, urinalysis did not show any pigmented granular casts. Protein was noted. She has wbc in the urine of greater than 50. ASSESSMENT AND PLAN: 1. Urosepsis - ? - on empiric IV antibiotics. White count has improved. Continue supportive care. 2. Acute kidney injury - secondary to a presumed hemodynamically-mediated renal dysfunction. We are trying to rule out acute tubular necrosis. We will be repeating another urinalysis with this patient. For the moment, we are holding off dialysis. I had a long discussion with the daughter and would like to hold off dialysis for another day. If no improvement by tomorrow, consider dialysis if the daughter would like us to pursue that option. 3. Overall, agree with current management. Job ID: [id number]
--- NOTE | 2019-12-03 10:44 | PRG ---
DATE OF SERVICE: 12/03/2019 SUBJECTIVE: The patient is still somewhat confused. No pain. OBJECTIVE: VITAL SIGNS: On exam, her temperature is 99.8, pulse 91, and blood pressure 183/92. GENERAL: She is confused, dementia. ABDOMEN: Soft, nondistended, and nontender. LABORATORY DATA: Her white count is 8, H and H of 10 and 33, and platelet count 130. Her total bilirubin is 0.4. LFTs are normal except for alkaline phosphatase is elevated at 145, lipase at 108. HIDA scan showed no evidence of acute cholecystitis. PLAN: Recommend continued IV antibiotics. Job ID: [id number]
[2019-12-03 10:48] LABS: Bilirubin Negative (Negative); Blood, Urine Moderate (Negative); Glucose, Urine (Dipstick) Negative (Negative); Leukocyte Large (Negative); Nitrite Negative (Negative); Protein, Urine (Dipstick) 30 mg/dL (Neg-Trace); Urobilinogen 0.2 mg/dL (Less than 2)
[2019-12-03 10:50] LABS: Squamous Epithelial 0-3 HPF (0-3); WBC/HPF Greater than 50 HPF (0-3)
[2019-12-03 10:53] LABS: Clarity Cloudy (Clear)
[2019-12-03 11:07] LABS: Bacteria/HPF 1+ HPF (None Seen)
[2019-12-03] MEDS ORDERED: Metoprolol Tartrate 50 MG TAB PO SCH (15:30)
[2019-12-03] MEDS: cloNIDine 0.1mg/24 Hour PATCH TD SCH (16:50)
[2019-12-03] MEDS ORDERED: hydrALAZINE 20 MG/ML VIAL SLOW IVP PRN (20:02)
--- NOTE | 2019-12-03 20:54 | PRG ---
DATE OF SERVICE: 12/03/2019 SUBJECTIVE: An 89-[facility]-old white [facility] presented to the hospital with generalized weakness along with poor oral intake. She was found to have lipase of 874 with abnormal LFTs. A CT scan of the abdomen and pelvis was consistent with possible acute cholecystitis. Right upper quadrant also was consistent with acute cholecystitis. It also showed dilated common bile duct with cholelithiasis. She had a HIDA scan yesterday which was negative for acute cholecystitis. She is currently followed by General Surgery as well as Gastroenterology. She is also followed by Dr. Potts for acute kidney injury. REVIEW OF SYSTEMS: The patient denies any chest pain, fever, chills, or new focal deficit. CURRENT MEDICATIONS: Reviewed. PHYSICAL EXAMINATION: VITAL SIGNS: Temperature 99.8 with pulse rate of 91, respiration of 18, blood pressure of 183/92, and O2 saturation 95% on room air. GENERAL: An 89-year-old female, ill-appearing, in no apparent distress at rest. LUNGS: Showed diminished air entry at bilateral bases without any rales. HEART: S1, S2 present. Regular. ABDOMEN: Soft. There is mild epigastric tenderness without any rebound or guarding. EXTREMITIES: No edema or calf tenderness. LABORATORY FINDINGS: Total bilirubin 0.4 with alkaline phosphatase of 145. Creatinine 5.91 with bicarbonate of 16. CBC showed WBC of 8 from 22.5. Urinalysis showed greater than 50 wbc's with 4+ bacteria. Urine culture showed gram-negative nakul. Blood culture negative. IMPRESSION: 1. Sepsis due to urinary tract infection, present on admission. 2. Gallstone pancreatitis. 3. Cholelithiasis. 4. Elevated LFTs secondary to above. 5. Acute kidney injury, probably hemodynamically mediated. 6. Dementia. 7. Moderate protein-calorie malnutrition. 8. History of renal calculi. 9. Gastroesophageal reflux disease. 10. Hypertension, uncontrolled. 11. Anxiety. 12. Depression without any suicidal ideation. 13. Chronic anemia suspected due to nutritional deficiency. PLAN: IV fluids will be changed to D5 with sodium bicarbonate. We will continue meropenem. We will add clonidine patch due to uncontrolled blood pressure. We will change metoprolol to home dose of 50 mg b.i.d. from 12.5 mg daily. We will also add hydralazine 50 mg t.i.d. We will add p.r.n. antihypertensives. I attempted to call the family with no answer. CODE STATUS: Do not resuscitate. Job ID: [id number]
[2019-12-03] MEDS: hydrALAZINE 25 MG TAB PO SCH (22:13)
[2019-12-03] MEDS: Amlodipine 5 MG TAB PO SCH (22:14)
[2019-12-03] MEDS: Metoprolol Tartrate 50 MG TAB PO SCH (22:14)
[2019-12-04] MEDS: Sodium Bicarbonate 150 MEQ in Dextrose 5% in Water 1,000 ML IV SCH ×3 (00:20→15:41)
[2019-12-04] MEDS: Albumin 25% 25 GM/100 ML BOT IVPB SCH (04:25)
[2019-12-04 05:53] LABS: Hemoglobin 10.2 g/dL (12.0-16.0); Hypochromia SLIGHT = 6-15 cells (100X) (0-5/hpf); Lymphocytes 14 % (21-51); MDiff Complete? YES; Mean Corpuscular HGB CONC 33.5 g/dL (32.0-36.0); Mean Corpuscular Hemoglobin 29.2 pg (27.0-31.0); Mean Corpuscular Volume 87.2 fL (78.0-98.0); Mean Platelet Volume 8.7 fL (7.4-10.4); Monocytes 7 % (0-10); Neutrophil 79 % (42-75); Platelet Count 117 thou/uL (130-400); Platelet Morphology Comment Appears Decreased; RBC Distribution Width 13.7 % (11.5-14.5); Red Blood Cell (RBC) Count 3.48 mill/uL (4.20-5.40)
[2019-12-04 05:57] LABS: ALT (SGPT) 23 U/L (8-55); AST (SGOT) 13 U/L (5-34); Albumin 3.7 g/dL (3.4-4.8); Alkaline Phosphatase 108 U/L (40-110); Anion Gap 15 mmol/L (10-20); BUN (Urea Nitrogen) 68 mg/dL (9.8-20.1); Bilirubin, Total 0.4 mg/dL (0.2-1.2); Calc. Creatinine Clearance 7 mL/min (70-130); Calcium 7.5 mg/dL (7.8-10.44); Carbon Dioxide 22 mmol/L (23-31); Chloride 109 mmol/L (98-107); Estimated GFR-MDRD 7; Globulin 2.2 g/dL (2.4-3.5); Glucose 117 mg/dL (83-110); Lipase 108 U/L (8-78); Magnesium 1.7 mg/dL (1.6-2.6); Potassium 3.2 mmol/L (3.5-5.1); Protein, Total 5.9 g/dL (6.0-8.3); Sodium 143 mmol/L (136-145)
[2019-12-04] MEDS: hydrALAZINE 25 MG TAB PO SCH ×3 (09:00→21:39)
[2019-12-04] MEDS: Meropenem 500 MG in Sodium Chloride 0.9% 100 ML IVPB SCH ×2 (09:15→21:46)
[2019-12-04] MEDS ORDERED: Potassium Chloride 20 MEQ TAB PO SCH (09:15)
[2019-12-04] MEDS: Heparin 5,000 UNITS/ML VIAL SC SCH ×2 (09:34→21:46)
[2019-12-04] MEDS: Metoprolol Tartrate 50 MG TAB PO SCH ×2 (09:40→21:45)
[2019-12-04] MEDS: Amlodipine 5 MG TAB PO SCH ×2 (09:42→21:40)
--- NOTE | 2019-12-04 09:45 | PRG ---
DATE OF SERVICE: 12/04/2019 SUBJECTIVE: Ms. Norris is an 89-year-old white female, who was admitted for sepsis syndrome. She was also to be hemodynamically unstable at that time. We are following her up for her acute kidney injury. The patient most likely has a hemodynamically-mediated renal dysfunction. Urine sediment was relatively benign. Currently, the patient has received colloids and crystalloids. Currently, on isotonic bicarbonate. Please note, the patient is noted to be diuresing. She has made about 1250 mL of urine output in the last 24 hours. The patient voices no new complaints. Denies any chest pain or shortness of breath. OBJECTIVE: VITAL SIGNS: Blood pressure 146/83, heart rate 84, respiratory rate 17, temperature 98.7, and O2 saturation 94%. GENERAL: Noted to be awake, alert, and comfortable, not in overt distress. SKIN: Adequate turgor. HEENT: She has pinkish conjunctivae. Anicteric sclerae. NECK: No neck mass. No carotid bruits. No JVD. CHEST: No deformities. LUNGS: Clear breath sounds. HEART: Normal sinus rhythm. No murmur. No gallops. No rubs. ABDOMEN: Globular, soft, and nontender. No masses. EXTREMITIES: No edema. No deformities. MEDICATIONS: Medications of December 04, 2019, were reviewed. LABORATORY DATA: Laboratories of December 04, 2019; white count 5, hemoglobin 10.2. Sodium 143, potassium 4.2, chloride 109, carbon dioxide 22, BUN 68, creatinine 5.77, glucose 117, calcium 7.5, and albumin 3.7. ASSESSMENT AND PLAN: 1. Acute kidney injury-consider a hemodynamically-mediated renal dysfunction. Continue IV hydration, the patient received albumin yesterday. Continue current isotonic bicarbonate. Please note, renal function has remained stable in the last 24 hours. I do not feel that there is any indication for any dialytic intervention with this patient. 2. Sepsis syndrome-on empiric IV antibiotics. 3. Mild hypokalemia, p.r.n. potassium replacement as needed. 4. Recheck basic met and CBC in a.m. Job ID: [id number]
--- NOTE | 2019-12-04 19:31 | PDOC.HOSPP ---
- Subjective Encounter Date: 12/04/19 Encounter Time: 12:30 Subjective: Patient seen and examined for Pancreatitis. Denies abd pain. Intermittent confusion. No overnight events - Objective Vital Signs & Weight: Vital Signs (12 hours) Temp Pulse Resp BP BP Pulse Ox 12/04/19 15:38 83 171/71 H 12/04/19 09:42 84 146/83 H 12/04/19 09:00 84 146/83 H 12/04/19 08:00 94 L 12/04/19 07:32 98.7 F 84 17 146/83 H 94 L Weight Weight 133 lb 11.2 oz I&O: 12/03/19 12/04/19 12/05/19 06:59 06:59 06:59 Intake Total 1515 1270 220 Output Total 425 1250 650 Balance 1090 20 -430 Result Diagrams: 12/04/19 05:20 12/04/19 05:20 Additional Labs: Microbiology 12/01/19 13:57 Urine Straight Catheter Urine Culture - Final Klebsiella pneumoniae ssp pneu 12/01/19 20:00 Venous blood - Left Hand Blood Culture - Preliminary NO GROWTH AT 48 HOURS 12/01/19 19:53 Venous blood - Left Hand Blood Culture - Preliminary NO GROWTH AT 48 HOURS Hospitalist ROS - Review of Systems Respiratory: denies: cough, dry, shortness of breath, hemoptysis, SOB with excertion, pleuritic pain, sputum, wheezing, other Cardiovascular: denies: chest pain, palpitations, orthopnea, paroxysmal noc. dyspnea, edema, light headedness, other - Medication Medications: Active Medications Generic Name Dose Route Start Last Admin Trade Name Bradq PRN Reason Stop Dose Admin Amlodipine Besylate 5 mg 12/03/19 21:00 12/04/19 09:42 Norvasc PO 5 mg BID GUIDO Administration Clonidine 0.1 mg 12/03/19 16:00 12/03/19 16:50 Wgnekyit-Fth-2 Patch TD 0.1 mg [id number] GUIDO Administration Heparin Sodium (Porcine) 5,000 units 12/01/19 21:00 12/04/19 09:34 Heparin SC 5,000 units BID GUIDO Administration Meropenem 500 mg/ Sodium 100 mls @ 200 mls/hr 12/01/19 21:00 12/04/19 09:15 Chloride IVPB 100 mls Q12HR GUIDO Administration Sodium Bicarbonate 150 meq/ 1,150 mls @ 75 mls/hr 12/03/19 08:45 12/04/19 15: 41 Dextrose/Water IV Not Given .[id number] GUIDO Quetiapine Fumarate 25 mg 12/02/19 21:00 12/04/19 09:36 Seroquel PO 25 mg BID GUIDO Administration Sodium Chloride 10 ml 12/01/19 21:00 12/04/19 13:39 Flush - Normal Saline IVF Not Given Q12HR GUIDO - Exam General Appearance: NAD Heart: RRR, no gallops Respiratory: no wheezes, no ronchi Gastrointestinal: non-tender, non-distended, normal bowel sounds Extremities: no cyanosis, no clubbing Hosp A/P - Plan macdonald catheter, PT/OT, DVT proph w/heparin, DVT proph w/SCDs 1. Sepsis due to Klebsiella UTI 2. Gallstone pancreatitis. 3. Cholelithiasis. 4. Elevated LFTs secondary to above. 5. RAISSA/Hypokalemia 6. HTN - uncontrolled 7. Moderate protein-calorie malnutrition. 8. History of renal calculi. 9. GERD. 10. Dementia. 11. Anxiety. 12. Depression 13. Chronic anemia suspected due to nutritional deficiency. 14. Thrombocytopenia PLAN: Cont Bicarb drip Increase Metoprolol and Hydralazine dose Cont Meropenem Cont Clonidine patch Replace Potassium AM labs
[2019-12-05] MEDS: Sodium Bicarbonate 150 MEQ in Dextrose 5% in Water 1,000 ML IV SCH ×3 (02:36→22:37)
[2019-12-05 06:37] LABS: #Eosinphils 0.1 thou/uL (0.0-0.7); #Lymphocytes 1.5 thou/uL (1.20-3.40); #Neutrophils 4.6 thou/uL (1.40-6.50); %Basophils 0.7 % (0.0-1.0); %Eosinophils 1.7 % (0.0-10.0); %Lymphocytes 20.9 % (21.0-51.0); %Monocytes 13.2 % (0.0-10.0); %Neutrophils 63.6 % (42.0-75.0); Hemoglobin 10.9 g/dL (12.0-16.0); Mean Corpuscular HGB CONC 32.2 g/dL (32.0-36.0); Mean Corpuscular Hemoglobin 28.5 pg (27.0-31.0); Mean Corpuscular Volume 88.6 fL (78.0-98.0); Platelet Count 141 thou/uL (130-400); RBC Distribution Width 13.9 % (11.5-14.5); Red Blood Cell (RBC) Count 3.81 mill/uL (4.20-5.40); White Blood Cell (WBC) Count 7.2 thou/uL (4.8-10.8)
[2019-12-05 07:00] LABS: ALT (SGPT) 17 U/L (8-55); AST (SGOT) 17 U/L (5-34); Albumin 3.3 g/dL (3.4-4.8); Alkaline Phosphatase 96 U/L (40-110); Anion Gap 16 mmol/L (10-20); BUN (Urea Nitrogen) 59 mg/dL (9.8-20.1); Bilirubin, Total 0.4 mg/dL (0.2-1.2); Calc. Creatinine Clearance 8 mL/min (70-130); Calcium 7.3 mg/dL (7.8-10.44); Carbon Dioxide 25 mmol/L (23-31); Chloride 107 mmol/L (98-107); Estimated GFR-MDRD 9; Globulin 2.4 g/dL (2.4-3.5); Glucose 115 mg/dL (83-110); Lipase 129 U/L (8-78); Magnesium 1.4 mg/dL (1.6-2.6); Potassium 3.2 mmol/L (3.5-5.1); Protein, Total 5.7 g/dL (6.0-8.3); Sodium 145 mmol/L (136-145)
[2019-12-05] MEDS ORDERED: Potassium Chloride 20 MEQ TAB PO SCH (09:00)
--- NOTE | 2019-12-05 09:34 | PRG ---
DATE OF SERVICE: 12/05/2019 SUBJECTIVE: Ms. Norris is an 89-year-old white female, who was admitted for sepsis syndrome and hemodynamic instability. She was found to be in acute kidney injury. At that time, we felt that she may simply have a hemodynamically-mediated renal dysfunction. We decided not to dialyze her, but empirically continue volume repletion with her. Her creatinine slowly improving. She is diuresing. She is more awake today. She voices no new complaints. She denies any chest pain or shortness of breath. OBJECTIVE: VITAL SIGNS: Blood pressure is 165/67, heart rate 75, respiratory rate 17, temperature 98.7, O2 saturation 92%. GENERAL: The patient is awake, alert, comfortable, not in distress. SKIN: Adequate turgor. HEENT: She has pinkish conjunctivae. Anicteric sclerae. No neck mass. No carotid bruits. No JVD. CHEST: No deformities. LUNGS: Clear breath sounds. No wheezing. No crackles. HEART: Normal sinus rhythm. No murmurs, no gallops, no rubs. ABDOMEN: Globular, soft, nontender. No masses. EXTREMITIES: No edema. No deformities. MEDICATIONS: Medications of December 05, 2019, was reviewed. LABORATORY DATA: Laboratories of December 05, 2019; sodium 145, potassium 3.2, chloride 107, carbon dioxide 25, BUN 59, creatinine 4.72, glucose 115, calcium 7.3, magnesium 1.4, albumin 3.3. ASSESSMENT AND PLAN: 1. Acute kidney injury-superimposed hemodynamically-mediated renal dysfunction. Renal function is slowly improving with volume repletion. No indication for any dialytic intervention. The patient is diuresing well. 2. Mild hypokalemia, on KCl 40 mEq one tab now. 3. Mild hypomagnesemia, on magnesium oxide 400 mg one tablet once a day. 4. Metabolic acidosis, slowly improving. If the bicarb will still rise by tomorrow, consider stopping the sodium bicarbonate drip. 5. Recheck basic metabolic and CBC in a.m. Job ID: [id number]
[2019-12-05] MEDS: Heparin 5,000 UNITS/ML VIAL SC SCH ×2 (10:22→20:23)
[2019-12-05] MEDS: Meropenem 500 MG in Sodium Chloride 0.9% 100 ML IVPB SCH ×2 (10:22→20:24)
[2019-12-05] MEDS: hydrALAZINE 25 MG TAB PO SCH ×3 (10:23→20:23)
[2019-12-05] MEDS: Amlodipine 5 MG TAB PO SCH ×2 (10:23→20:23)
[2019-12-05] MEDS: Metoprolol Tartrate 50 MG TAB PO SCH ×2 (10:24→20:22)
--- NOTE | 2019-12-05 16:23 | PDOC.PALCO ---
Palliative Care Consult - Consult Details Requesting Physician: Dr Meek Reason for Consult: goals of care, family support - Pertinent HPI Sotero resides at [facility]. Change in baseline 2 days prior to admission with decrease in intake and become febrile, no relieving interventions. She was taken to [facility] and after evaluation was noted to have acute cholecystitis, acute renal failure, and transferred to [facility] for higher level of care. Patient daughter states prior hospice patient that was discharged from services secondary to absence of decline. - Pertinent PMH CHF, HTN, Dementia, Anemia, Gerd, Staghorn left renal calculus, depression, - Social History Smoking Status: Never smoker Smoking: no tobacco exposure Alcohol Use: none Drug Use History: none Living Situation: residential resident - Medications MAR Reviewed: Yes - Allergies Allergies/Adverse Reactions: Allergies Allergy/AdvReac Type Severity Reaction Status Date / Time No Known Drug Allergies Allergy Verified 12/02/19 01:38 - Subjective Verbal, did not open eyes, pleasantly confused. Assistance required for ADL's - ROS Non Response: due to mental status - Objective Vital Signs: Vital Signs - Most Recent Temp Pulse Resp BP Pulse Ox 98.7 F 84 17 137/78 97 12/05/19 11:31 12/05/19 15:29 12/05/19 11:31 12/05/19 11:31 12/05/19 11:31 Palliative Performance Scale: 30 - Physical Exam Constitutional: cachectic, ill appearing HEENT: moist MMs Respiratory: no wheezing, unlabored breathing Cardiovascular: RRR Gastrointestinal: soft, non-tender, incontinent Genitourinary: macdonald catheter Musculoskeletal: no cyanosis, diffuse muscle atrophy Neurology: moves all 4 limbs Skin: cap refill <2 seconds, fragile Psychiatric: normal mood Deviation from normal: Oreinted to self - Problem List (1) Declining functional status Code(s): R53.81 - OTHER MALAISE Current Visit: Yes Status: Acute (2) Palliative care encounter Code(s): Z51.5 - ENCOUNTER FOR PALLIATIVE CARE Current Visit: Yes Status: Acute (3) Acute renal failure Current Visit: Yes Status: Acute Qualifiers: Acute renal failure type: with acute tubular necrosis Qualified Code(s): N17.0 - Acute kidney failure with tubular necrosis (4) Severe dehydration Code(s): E86.0 - DEHYDRATION Current Visit: Yes Status: Acute (5) Dementia Code(s): F03.90 - UNSPECIFIED DEMENTIA WITHOUT BEHAVIORAL DISTURBANCE Current Visit: Yes Status: Chronic Qualifiers: Dementia type: Alzheimer's disease Dementia behavioral disturbance: without behavioral disturbance - Plan/Recommendations Plan: Initiated conversation in relation to Goal of Care, Daughter confirms that her mother was on hospice in the past and is open to consideration of return to [facility] with hospice services. Emotional Support and Therapeutic listening. Will follow up to further discuss Goal of Care with patient daughter Please also refer to Trudi Galvan RNembossing press operator molded goods notes in note section [45] minutes spent on this encounter with >50% of the time in counseling and coordination of care. Thank you for this very appropriate consult.
[2019-12-05] MEDS: Magnesium Chloride 64 MG TAB PO SCH (20:23)
--- NOTE | 2019-12-05 23:54 | PDOC.HOSPP ---
- Subjective Encounter Date: 12/05/19 Encounter Time: 13:00 Subjective: Patient seen and examined for AMS/Pancreatitis. Mentation improving. No fever/ SOB. No new complaints. No overnight events - Objective Vital Signs & Weight: Vital Signs (12 hours) Temp Pulse Resp BP Pulse Ox 12/05/19 20:23 80 12/05/19 20:00 98.6 F 76 18 135/67 93 L 12/05/19 15:29 84 Weight Weight 133 lb 11.2 oz I&O: 12/04/19 12/05/19 12/06/19 06:59 06:59 06:59 Intake Total 1270 220 750 Output Total 1250 1450 1800 Balance 20 -4775 -5487 Result Diagrams: 12/05/19 06:26 12/06/19 09:09 Radiology Reviewed by me: Anne flores) Hospitalist ROS - Review of Systems Respiratory: denies: cough, dry, shortness of breath, hemoptysis, SOB with excertion, pleuritic pain, sputum, wheezing, other Cardiovascular: denies: chest pain, palpitations, orthopnea, paroxysmal noc. dyspnea, edema, light headedness, other - Medication Medications: Active Medications Generic Name Dose Route Start Last Admin Trade Name Freq PRN Reason Stop Dose Admin Amlodipine Besylate 5 mg 12/03/19 21:00 12/05/19 20:23 Norvasc PO 5 mg BID GUIDO Administration Clonidine 0.1 mg 12/03/19 16:00 12/03/19 16:50 [id number]-6 Patch TD 0.1 mg Q7DAYS GUIDO Administration Heparin Sodium (Porcine) 5,000 units 12/01/19 21:00 12/05/19 20:23 Heparin SC 5,000 units BID GUIDO Administration Hydralazine HCl 75 mg 12/04/19 21:00 12/05/19 20:23 Apresoline PO 75 mg TID GUIDO Administration Meropenem 500 mg/ Sodium 100 mls @ 200 mls/hr 12/01/19 21:00 12/05/19 20:24 Chloride IVPB 100 mls Q12HR GUIDO Administration Sodium Bicarbonate 150 meq/ 1,150 mls @ 75 mls/hr 12/03/19 08:45 12/05/19 22: 37 Dextrose/Water IV 1,150 mls .[id number] GUIDO Administration Magnesium Chloride 64 mg 12/05/19 21:00 12/05/19 20:23 Slow-Mag PO 64 mg BID GUIDO Administration Metoprolol Tartrate 75 mg 12/04/19 21:00 12/05/19 20:22 Lopressor PO 75 mg BID GUIDO Administration Quetiapine Fumarate 25 mg 12/02/19 21:00 12/05/19 20:23 Seroquel PO 25 mg BID GUIDO Administration Sodium Chloride 10 ml 12/01/19 21:00 12/05/19 20:25 Flush - Normal Saline IVF 10 ml Q12HR GUIDO Administration - Exam General Appearance: NAD Neck: supple, no JVD Heart: no gallops, no rubs Respiratory: no wheezes, no rales Gastrointestinal: soft, non-tender Extremities: no cyanosis, no edema Neurological: no new deficit Hosp A/P - Plan PT/OT, DVT proph w/heparin, DVT proph w/SCDs 1. Sepsis due to Klebsiella UTI/Toxic Metabolic Encephalopathy (POA) 2. Gallstone pancreatitis with ?cholangitis - POA 3. Cholelithiasis. 4. Elevated LFTs secondary to above. 5. RAISSA/Hypokalemia/Hypomagensemia 6. HTN 7. Moderate PEM 8. History of renal calculi. 9. GERD. 10. Dementia. 11. Anxiety. 12. Depression 13. Chronic anemia suspected due to nutritional deficiency. 14. Thrombocytopenia PLAN: Cont IVF with bicarb Cont Metoprolol/Hydralazine Cont IV Meropenem Cont Clonidine patch AM labs PT/OT DC planning Renal function improving Replace Magnesium
[2019-12-06] MEDS ORDERED: 1/2 NS w/KCL 20 mEq 1,000 ML IV SCH (09:00)
--- NOTE | 2019-12-06 09:19 | PRG ---
DATE OF SERVICE: 12/06/2019 SUBJECTIVE: Ms. Norris is an 89-year-old white female who was seen for her acute kidney injury that was hemodynamically-mediated renal dysfunction. She was given IV volume repletion with slow improvement of the renal function. I do not find any indication for any emergent dialysis today. No new complaints. No chest pain or shortness of breath. OBJECTIVE: VITAL SIGNS: Blood pressure 162/75, heart rate 82, respiratory rate 18, temperature 98.5, O2 saturation 94%. GENERAL: Noted to be awake, alert, comfortable. SKIN: Adequate turgor. HEENT: Pinkish conjunctivae, anicteric sclerae. No neck mass. No carotid bruits. No JVD. CHEST: No deformities. LUNGS: Clear breath sounds. No wheezing. No crackles. HEART: Normal sinus rhythm. No murmur. No gallops. No rubs. ABDOMEN: Globular, soft, nontender. No masses. EXTREMITIES: No edema. No deformities. MEDICATIONS: Medications of December 06, 2019, were reviewed. LABORATORY DATA: Laboratories of December 06, 2019, currently pending. December 05, 2019; white count 7.2, hemoglobin 10.9. BUN 59, creatinine 4.72. ASSESSMENT AND PLAN: 1. Acute kidney injury - superimposed hemodynamically-mediated renal dysfunction. Continue current IV fluid. Due to the improved bicarbonate, we will change current IV fluid to a D5 half-normal saline at 75 mL an hour. The patient is diuresing. No indication for any emergent hemodialysis. 2. Recheck basic metabolic and CBC in a.m. Job ID: [id number]
[2019-12-06] MEDS: Amlodipine 5 MG TAB PO SCH ×2 (09:46→20:21)
[2019-12-06] MEDS: Magnesium Chloride 64 MG TAB PO SCH ×2 (09:46→20:22)
[2019-12-06] MEDS: Metoprolol Tartrate 50 MG TAB PO SCH ×2 (09:47→20:21)
[2019-12-06] MEDS: Heparin 5,000 UNITS/ML VIAL SC SCH ×2 (09:47→20:21)
[2019-12-06] MEDS: hydrALAZINE 25 MG TAB PO SCH ×3 (09:47→20:21)
[2019-12-06] MEDS: Meropenem 500 MG in Sodium Chloride 0.9% 100 ML IVPB SCH ×2 (09:48→20:22)
[2019-12-06 10:08] LABS: ALT (SGPT) 16 U/L (8-55); AST (SGOT) 15 U/L (5-34); Albumin 3.4 g/dL (3.4-4.8); Alkaline Phosphatase 92 U/L (40-110); Anion Gap 17 mmol/L (10-20); BUN (Urea Nitrogen) 48 mg/dL (9.8-20.1); Bilirubin, Total 0.5 mg/dL (0.2-1.2); Calc. Creatinine Clearance 11 mL/min (70-130); Calcium 7.4 mg/dL (7.8-10.44); Carbon Dioxide 31 mmol/L (23-31); Chloride 103 mmol/L (98-107); Estimated GFR-MDRD 12; Globulin 2.5 g/dL (2.4-3.5); Glucose 121 mg/dL (83-110); Lipase 125 U/L (8-78); Potassium 3.5 mmol/L (3.5-5.1); Protein, Total 5.9 g/dL (6.0-8.3); Sodium 147 mmol/L (136-145)
[2019-12-06 10:18] LABS: Band 9 % (5-11); Eosinophils 4 % (0-10); Hemoglobin 11.7 g/dL (12.0-16.0); Lymphocytes 21 % (21-51); MDiff Complete? YES; Mean Corpuscular Hemoglobin 27.6 pg (27.0-31.0); Mean Corpuscular Volume 88.9 fL (78.0-98.0); Mean Platelet Volume 8.7 fL (7.4-10.4); Monocytes 11 % (0-10); Neutrophil 55 % (42-75); Platelet Count 154 thou/uL (130-400); Platelet Morphology Comment Appears Adequate; RBC Morphology Normal; Red Blood Cell (RBC) Count 4.25 mill/uL (4.20-5.40); White Blood Cell (WBC) Count 6.9 thou/uL (4.8-10.8)
[2019-12-06] MEDS: 1/2 NS w/KCL 20 mEq 1,000 ML IV SCH ×2 (13:46→20:27)
--- NOTE | 2019-12-06 18:00 | PDOC.HOSPP ---
- Subjective Encounter Date: 12/06/19 Encounter Time: 10:30 Subjective: Patient seen and examined for Sepsis. No CP/SOB. No new complaints. No overnight events - Objective Vital Signs & Weight: Vital Signs (12 hours) Temp Pulse Resp BP BP Pulse Ox 12/06/19 15:14 98 F 75 18 134/68 93 L 12/06/19 14:41 77 114/63 12/06/19 10:47 98.3 F 77 17 99/62 94 L 12/06/19 09:47 82 12/06/19 09:46 82 12/06/19 06:59 98.5 F 82 18 162/75 H 94 L Weight Admit Weight 133 lb Weight 133 lb 11.2 oz I&O: 12/05/19 12/06/19 12/07/19 06:59 06:59 06:59 Intake Total 220 750 Output Total 1450 1800 850 Balance -1230 -1050 -850 Result Diagrams: 12/06/19 09:09 12/06/19 09:09 EKG Reviewed by me: Yes (Tele SR) Hospitalist ROS - Review of Systems Respiratory: denies: cough, dry, shortness of breath, hemoptysis, SOB with excertion, pleuritic pain, sputum, wheezing, other Cardiovascular: denies: chest pain, palpitations, orthopnea, paroxysmal noc. dyspnea, edema, light headedness, other Gastrointestinal: denies: nausea, vomiting, abdominal pain, diarrhea, constipation, melena, hematochezia, other - Medication Medications: Active Medications Generic Name Dose Route Start Last Admin Trade Name Freq PRN Reason Stop Dose Admin Amlodipine Besylate 5 mg 12/03/19 21:00 12/06/19 09:46 Norvasc PO 5 mg BID GUIDO Administration Clonidine 0.1 mg 12/03/19 16:00 12/03/19 16:50 Froeefgz-Eji-4 Patch TD 0.1 mg Q7DAYS GUIDO Administration Heparin Sodium (Porcine) 5,000 units 12/01/19 21:00 12/06/19 09:47 Heparin SC 5,000 units BID GUIDO Administration Hydralazine HCl 75 mg 12/04/19 21:00 12/06/19 14:41 Apresoline PO Not Given TID GUIDO Meropenem 500 mg/ Sodium 100 mls @ 200 mls/hr 12/01/19 21:00 12/06/19 09:48 Chloride IVPB 100 mls Q12HR GUIDO Administration Potassium Chloride/Sodium Chloride 1,000 mls @ 125 mls/hr 12/06/19 12:45 13:46 1/2 Ns W/Kcl 20 Meq IV Not Given .Q8H GUIDO Magnesium Chloride 64 mg 12/05/19 21:00 12/06/19 09:46 Slow-Mag PO 64 mg BID GUIDO Administration Metoprolol Tartrate 75 mg 12/04/19 21:00 12/06/19 09:47 Lopressor PO 75 mg BID GUIDO Administration Quetiapine Fumarate 25 mg 12/02/19 21:00 12/06/19 09:46 Seroquel PO 25 mg BID GUIDO Administration Sodium Chloride 10 ml 12/01/19 21:00 12/06/19 09:48 Flush - Normal Saline IVF 10 ml Q12HR GUIDO Administration - Exam General Appearance: NAD Heart: RRR, no gallops Respiratory: no wheezes, no ronchi Gastrointestinal: non-tender, normal bowel sounds, no guarding, no rigidity Extremities: no cyanosis Neurological: no new deficit Hosp A/P - Plan plan discussed w/ family, DVT proph w/SCDs 1. Sepsis due to Klebsiella UTI/Toxic Metabolic Encephalopathy (POA) 2. Gallstone pancreatitis with ?cholangitis - POA 3. Cholelithiasis. 4. Elevated LFTs secondary to above. 5. RAISSA/Hypokalemia/Hypomagensemia 6. HTN 7. Moderate PEM 8. History of renal calculi. 9. GERD. 10. Dementia. 11. Anxiety. 12. Depression 13. Chronic anemia suspected due to nutritional deficiency. 14. Thrombocytopenia PLAN: IVF changed to 1/2 NS with KCL Cont IV Meropenem at renal dose Cont Metoprolol/Hydralazine/Clonidine patch AM labs
[2019-12-06] MEDS: Acetaminophen 325 MG TAB PO PRN (20:21)
[2019-12-07] MEDS: 1/2 NS w/KCL 20 mEq 1,000 ML IV SCH ×3 (05:06→20:45)
[2019-12-07 06:22] LABS: Band 11 % (5-11); Eosinophils 6 % (0-10); Lymphocytes 25 % (21-51); MDiff Complete? YES; Mean Corpuscular HGB CONC 32.2 g/dL (32.0-36.0); Mean Corpuscular Hemoglobin 28.6 pg (27.0-31.0); Mean Corpuscular Volume 88.9 fL (78.0-98.0); Metamyelocyte 2 % (0-0); Monocytes 12 % (0-10); Neutrophil 44 % (42-75); Platelet Count 169 thou/uL (130-400); Platelet Morphology Comment Appears Adequate; RBC Distribution Width 13.7 % (11.5-14.5); Red Blood Cell (RBC) Count 3.85 mill/uL (4.20-5.40); White Blood Cell (WBC) Count 5.9 thou/uL (4.8-10.8)
[2019-12-07 06:36] LABS: Anion Gap 11 mmol/L (10-20); BUN (Urea Nitrogen) 39 mg/dL (9.8-20.1); Calc. Creatinine Clearance 14 mL/min (70-130); Calcium 7.3 mg/dL (7.8-10.44); Carbon Dioxide 33 mmol/L (23-31); Chloride 105 mmol/L (98-107); Estimated GFR-MDRD 16; Glucose 91 mg/dL (83-110); Magnesium 1.5 mg/dL (1.6-2.6); Potassium 3.7 mmol/L (3.5-5.1); Sodium 145 mmol/L (136-145)
[2019-12-07] MEDS ORDERED: Magnesium 2 GM/50 ML 2 GM in Premix Bag 1 BAG IVPB SCH (08:00)
[2019-12-07] MEDS: Meropenem 500 MG in Sodium Chloride 0.9% 100 ML IVPB SCH ×2 (08:21→19:56)
[2019-12-07] MEDS: Amlodipine 5 MG TAB PO SCH ×2 (08:23→20:05)
[2019-12-07] MEDS: hydrALAZINE 25 MG TAB PO SCH ×3 (08:23→20:05)
[2019-12-07] MEDS: Metoprolol Tartrate 50 MG TAB PO SCH ×2 (08:23→20:05)
[2019-12-07] MEDS: Magnesium Chloride 64 MG TAB PO SCH ×2 (08:24→20:05)
[2019-12-07] MEDS: Heparin 5,000 UNITS/ML VIAL SC SCH ×2 (08:25→19:55)
[2019-12-07] MEDS: Acetaminophen 325 MG TAB PO PRN (20:04)
[2019-12-08] MEDS: 1/2 NS w/KCL 20 mEq 1,000 ML IV SCH ×3 (01:40→18:11)
[2019-12-08] MEDS: Metoprolol Tartrate 50 MG TAB PO SCH ×2 (08:04→20:26)
[2019-12-08] MEDS: Meropenem 500 MG in Sodium Chloride 0.9% 100 ML IVPB SCH ×2 (08:04→20:25)
[2019-12-08] MEDS: hydrALAZINE 25 MG TAB PO SCH ×3 (08:04→20:26)
[2019-12-08] MEDS: Magnesium Chloride 64 MG TAB PO SCH ×2 (08:05→20:26)
[2019-12-08] MEDS: Heparin 5,000 UNITS/ML VIAL SC SCH ×2 (08:05→20:26)
[2019-12-08] MEDS: Amlodipine 5 MG TAB PO SCH ×2 (08:05→20:27)
--- NOTE | 2019-12-08 08:51 | PDOC.HOSPP ---
- Subjective Encounter Date: 12/07/19 Encounter Time: 11:30 Subjective: Patient seen and examined for AMS/RAISSA. Intermittent confusion. No new complaints. No overnight events - Objective Vital Signs & Weight: Vital Signs (12 hours) Temp Pulse Resp BP BP Pulse Ox 12/08/19 08:05 77 156/67 H 12/08/19 08:04 77 156/67 H 12/08/19 07:46 99.7 F H 77 18 156/67 H 94 L 12/08/19 05:00 70 19 12/07/19 23:44 98.9 F 58 L 18 143/69 H 95 Weight Admit Weight 133 lb Weight 133 lb 11.2 oz I&O: 12/07/19 12/08/19 12/09/19 06:59 06:59 06:59 Intake Total 1550 3970 Output Total 1800 2300 Balance -250 1670 Result Diagrams: 12/07/19 05:42 12/07/19 05:42 Hospitalist ROS - Review of Systems Cardiovascular: denies: chest pain, palpitations, orthopnea, paroxysmal noc. dyspnea, edema, light headedness, other Gastrointestinal: denies: nausea, vomiting, abdominal pain, diarrhea, constipation, melena, hematochezia, other - Medication Medications: Active Medications Generic Name Dose Route Start Last Admin Trade Name Freq PRN Reason Stop Dose Admin Acetaminophen 650 mg 12/01/19 18:30 12/07/19 20:04 Tylenol PO 650 mg Q4H PRN Administration Headache/Fever/Mild Pain (1-3) Amlodipine Besylate 5 mg 12/03/19 21:00 12/08/19 08:05 Norvasc PO 5 mg BID GUIDO Administration Clonidine 0.1 mg 12/03/19 16:00 12/03/19 16:50 Nxnvlkhk-Qpx-1 Patch TD 0.1 mg Q7DAYS GUIDO Administration Heparin Sodium (Porcine) 5,000 units 12/01/19 21:00 12/08/19 08:05 Heparin SC 5,000 units BID GUIDO Administration Hydralazine HCl 75 mg 12/04/19 21:00 12/08/19 08:04 Apresoline PO 75 mg TID GUIDO Administration Meropenem 500 mg/ Sodium 100 mls @ 200 mls/hr 12/01/19 21:00 12/08/19 08:04 Chloride IVPB 100 mls Q12HR GUIDO Administration Potassium Chloride/Sodium Chloride 1,000 mls @ 125 mls/hr 12/06/19 12:45 01:40 1/2 Ns W/Kcl 20 Meq IV 1,000 mls .Q8H GUIDO Administration Magnesium Chloride 64 mg 12/05/19 21:00 12/08/19 08:05 Slow-Mag PO 64 mg BID GUIDO Administration Metoprolol Tartrate 75 mg 12/04/19 21:00 12/08/19 08:04 Lopressor PO 75 mg BID GUIDO Administration Quetiapine Fumarate 25 mg 12/02/19 21:00 12/08/19 08:04 Seroquel PO 25 mg BID GUIDO Administration Sodium Chloride 10 ml 12/01/19 21:00 12/08/19 08:06 Flush - Normal Saline IVF Not Given Q12HR GUIDO - Exam General Appearance: NAD Heart: RRR, no gallops Respiratory: no wheezes, no ronchi Gastrointestinal: non-tender, normal bowel sounds Extremities: no cyanosis, no clubbing Neurological: no new deficit Hosp A/P - Plan DVT proph w/SCDs 1. Sepsis due to Klebsiella UTI/Toxic Metabolic Encephalopathy 2. Gallstone pancreatitis with ?cholangitis 3. Cholelithiasis. 4. Elevated LFTs secondary to above. 5. RAISSA/Hypokalemia/Hypomagensemia 6. HTN 7. Moderate PEM 8. History of renal calculi. 9. GERD. 10. Dementia. 11. Anxiety. 12. Depression 13. Chronic anemia suspected due to nutritional deficiency. 14. Thrombocytopenia PLAN: Cont IVF Cont IV Meropenem for possible cholangitis Cont other meds includingMetoprolol/Hydralazine/Clonidine patch
--- NOTE | 2019-12-08 11:12 | PRG ---
DATE OF SERVICE: 12/08/2019 SERVICE: Renal Medicine. SUBJECTIVE: Ms. Norris is an 89-year-old white female, who was admitted for sepsis syndrome. She has been started on IV meropenem. We are following up for acute kidney injury that was hemodynamically-mediated dysfunction. With subsequent volume repletion, renal function is slowly improving. She is also diuresing. She voices no new complaints today. She denies any chest pain or shortness of breath. OBJECTIVE: VITAL SIGNS: Blood pressure 156/67, heart rate is 77, respiratory rate 18, temperature 99.7, O2 saturation 94%. GENERAL: The patient is awake, comfortable, not in distress. SKIN: Adequate turgor. HEENT: Pinkish conjunctivae. Anicteric sclerae. NECK: No neck mass. No carotid bruits. No JVD. CHEST: No deformities. LUNGS: Clear breath sounds. No wheezing. No crackles. HEART: Normal sinus rhythm. No murmurs, gallops, or rubs. ABDOMEN: Globular, soft, nontender. No masses. EXTREMITIES: No edema. No deformities. MEDICATIONS: Medications of December 08, 2019, was reviewed. LABORATORY DATA: Laboratories of December 07, 2019; white count 5.9 hemoglobin 11. December 07, 2019; sodium 145, potassium 3.7, chloride 105, carbon dioxide 33, BUN 39, creatinine 2.79, magnesium is 1.5. ASSESSMENT AND PLAN: 1. Acute kidney injury secondary to a hemodynamically-mediated dysfunction-improving renal function. Continue current IV fluid. Tolerating said fluid treatment. No indication for any dialytic intervention. 2. Hypomagnesemia, much improved with magnesium supplementation. 3. Hypokalemia, improving. We will recheck basic metabolic panel and CBC in the morning. Job ID: [id number]
[2019-12-08] MEDS: Acetaminophen 325 MG TAB PO PRN ×2 (15:04→20:29)
--- NOTE | 2019-12-08 17:51 | PDOC.HOSPP ---
- Subjective Encounter Date: 12/08/19 Encounter Time: 11:30 Subjective: Patient seen and examined for Sepsis. Confused. No new complaints. No overnight events - Objective Vital Signs & Weight: Vital Signs (12 hours) Temp Pulse Resp BP BP BP Pulse Ox 12/08/19 16:30 99.7 F H 12/08/19 15:04 79 143/73 H 12/08/19 15:00 100.2 F H 83 20 143/73 H 93 L 12/08/19 08:05 77 156/67 H 12/08/19 08:04 77 156/67 H 12/08/19 08:02 94 L 12/08/19 07:46 99.7 F H 77 18 156/67 H 94 L Weight Admit Weight 133 lb Weight 133 lb 11.2 oz I&O: 12/07/19 12/08/19 12/09/19 06:59 06:59 06:59 Intake Total 1550 3970 1795 Output Total 1800 2300 900 Balance -250 1670 895 Result Diagrams: 12/07/19 05:42 12/07/19 05:42 Hospitalist ROS - Review of Systems Respiratory: denies: cough, dry, shortness of breath, hemoptysis, SOB with excertion, pleuritic pain, sputum, wheezing, other Cardiovascular: denies: chest pain, palpitations, orthopnea, paroxysmal noc. dyspnea, edema, light headedness, other - Medication Medications: Active Medications Generic Name Dose Route Start Last Admin Trade Name Freq PRN Reason Stop Dose Admin Acetaminophen 650 mg 12/01/19 18:30 12/08/19 15:04 Tylenol PO 650 mg Q4H PRN Administration Headache/Fever/Mild Pain (1-3) Amlodipine Besylate 5 mg 12/03/19 21:00 12/08/19 08:05 Norvasc PO 5 mg BID GUIDO Administration Clonidine 0.1 mg 12/03/19 16:00 12/03/19 16:50 Hjpbgmha-Ebf-6 Patch TD 0.1 mg Q7DAYS GUIDO Administration Heparin Sodium (Porcine) 5,000 units 12/01/19 21:00 12/08/19 08:05 Heparin SC 5,000 units BID GUIDO Administration Hydralazine HCl 75 mg 12/04/19 21:00 12/08/19 15:04 Apresoline PO 75 mg TID GUIDO Administration Meropenem 500 mg/ Sodium 100 mls @ 200 mls/hr 12/01/19 21:00 12/08/19 08:04 Chloride IVPB 100 mls Q12HR GUIDO Administration Potassium Chloride/Sodium Chloride 1,000 mls @ 125 mls/hr 12/06/19 12:45 09:52 1/2 Ns W/Kcl 20 Meq IV 1,000 mls .Q8H GUIDO Administration Magnesium Chloride 64 mg 12/05/19 21:00 12/08/19 08:05 Slow-Mag PO 64 mg BID GUIDO Administration Metoprolol Tartrate 75 mg 12/04/19 21:00 12/08/19 08:04 Lopressor PO 75 mg BID GUIDO Administration Quetiapine Fumarate 25 mg 12/02/19 21:00 12/08/19 08:04 Seroquel PO 25 mg BID GUIDO Administration Sodium Chloride 10 ml 12/01/19 21:00 12/08/19 08:06 Flush - Normal Saline IVF Not Given Q12HR GUIDO - Exam General Appearance: NAD Heart: RRR, no gallops Respiratory: no wheezes, no rales Gastrointestinal: soft, non-tender, normal bowel sounds Extremities: no cyanosis Neurological: no new deficit Psychiatric: normal affect, A&O x 3 Hosp A/P - Plan DVT proph w/heparin, DVT proph w/SCDs 1. Sepsis due to Klebsiella UTI/Toxic Metabolic Encephalopathy 2. Gallstone pancreatitis with ?cholangitis 3. Cholelithiasis. 4. Elevated LFTs secondary to above. 5. RAISSA/Hypokalemia/Hypomagensemia 6. HTN 7. Moderate PEM 8. History of renal calculi. 9. GERD. 10. Dementia. 11. Anxiety. 12. Depression 13. Chronic anemia suspected due to nutritional deficiency. 14. Thrombocytopenia PLAN: Pt continues to have low grade fever with confusion Will recheck blood cultures, UA and portable CXR Cont current IVF Cont IV Meropenem Cont other meds as above Cont Metoprolol/Hydralazine/Clonidine patch AM labs
[2019-12-08 18:57] LABS: Bacteria/HPF 1+ HPF (None Seen); Bilirubin Negative (Negative); Blood, Urine Negative (Negative); Clarity Turbid (Clear); Glucose, Urine (Dipstick) Normal (Negative); Leukocyte 500 Leu/uL (Negative); Nitrite Negative (Negative); Protein, Urine (Dipstick) 30 mg/dL (Neg-Trace); Squamous Epithelial 0-3 HPF (0-3); Urobilinogen Normal mg/dL (Less than 2); WBC/HPF 21-50 HPF (0-3)
[2019-12-08 18:58] LABS: Urine Culture Reflex Yes Yes
[2019-12-08] MEDS: Saccharomyces boulardii 250 MG CAP PO SCH (20:28)
[2019-12-09] MEDS: 1/2 NS w/KCL 20 mEq 1,000 ML IV SCH ×3 (03:06→22:07)
[2019-12-09] MEDS: Acetaminophen 325 MG TAB PO PRN ×2 (05:30→14:40)
[2019-12-09] MEDS: Meropenem 500 MG in Sodium Chloride 0.9% 100 ML IVPB SCH ×2 (08:05→22:06)
[2019-12-09] MEDS: Magnesium Chloride 64 MG TAB PO SCH ×2 (08:08→22:06)
[2019-12-09] MEDS: Saccharomyces boulardii 250 MG CAP PO SCH ×2 (08:08→22:04)
[2019-12-09] MEDS: Metoprolol Tartrate 50 MG TAB PO SCH ×2 (08:09→22:05)
[2019-12-09] MEDS: hydrALAZINE 25 MG TAB PO SCH ×3 (08:09→22:04)
[2019-12-09] MEDS: Amlodipine 5 MG TAB PO SCH ×2 (08:10→22:05)
[2019-12-09] MEDS: Heparin 5,000 UNITS/ML VIAL SC SCH ×2 (08:11→22:06)
[2019-12-09 08:28] LABS: #Eosinphils 0.2 thou/uL (0.0-0.7); #Lymphocytes 1.8 thou/uL (1.20-3.40); #Monocytes 0.7 thou/uL (0.11-0.59); #Neutrophils 6.9 thou/uL (1.40-6.50); %Basophils 0.2 % (0.0-1.0); %Eosinophils 1.9 % (0.0-10.0); %Lymphocytes 18.7 % (21.0-51.0); %Neutrophils 72.3 % (42.0-75.0); Hemoglobin 10.5 g/dL (12.0-16.0); Mean Corpuscular HGB CONC 32.7 g/dL (32.0-36.0); Mean Corpuscular Hemoglobin 28.8 pg (27.0-31.0); Mean Corpuscular Volume 88.1 fL (78.0-98.0); Mean Platelet Volume 8.8 fL (7.4-10.4); Platelet Count 209 thou/uL (130-400); RBC Distribution Width 13.7 % (11.5-14.5); Red Blood Cell (RBC) Count 3.65 mill/uL (4.20-5.40); White Blood Cell (WBC) Count 9.6 thou/uL (4.8-10.8)
[2019-12-09 08:37] LABS: Anion Gap 11 mmol/L (10-20); BUN (Urea Nitrogen) 22 mg/dL (9.8-20.1); Calc. Creatinine Clearance 23 mL/min (70-130); Calcium 7.6 mg/dL (7.8-10.44); Carbon Dioxide 24 mmol/L (23-31); Chloride 108 mmol/L (98-107); Estimated GFR-MDRD 30; Glucose 102 mg/dL (83-110); Magnesium 1.5 mg/dL (1.6-2.6); Potassium 4.4 mmol/L (3.5-5.1); Sodium 139 mmol/L (136-145)
[2019-12-09 08:38] LABS: ALT (SGPT) 31 U/L (8-55); AST (SGOT) 71 U/L (5-34); Albumin 3.2 g/dL (3.4-4.8); Alkaline Phosphatase 89 U/L (40-110); Bilirubin, Direct 0.3 mg/dL (0.1-0.3); Bilirubin, Total 0.5 mg/dL (0.2-1.2); Protein, Total 5.6 g/dL (6.0-8.3)
[2019-12-09] MEDS ORDERED: Magnesium 2 GM/50 ML 2 GM in Premix Bag 1 BAG IVPB SCH (09:15)
[2019-12-09 09:31] LABS: Phosphorus 3.6 mg/dL (2.3-4.7)
--- NOTE | 2019-12-09 09:53 | PDOC.HOSPP ---
- Subjective Encounter Date: 12/09/19 Encounter Time: 08:30 Subjective: Patient seen and examined for Sepsis. Remains confused. No new complaints. No overnight events - Objective Vital Signs & Weight: Vital Signs (12 hours) Temp Pulse Resp BP BP Pulse Ox 12/09/19 08:10 83 151/71 H 12/09/19 08:09 83 151/71 H 12/09/19 07:06 100.3 F H 83 18 151/71 H 90 L 12/09/19 04:00 99.2 F 101 H 18 166/72 H 95 Weight Admit Weight 133 lb Weight 133 lb 11.2 oz I&O: 12/08/19 12/09/19 12/10/19 06:59 06:59 06:59 Intake Total 3970 3445 Output Total 2300 2320 Balance 1670 1125 Result Diagrams: 12/09/19 08:02 12/09/19 08:02 Radiology Reviewed by me: Yes (CXR - RLL infiltrate - report pending) Hospitalist ROS - Review of Systems ROS unobtainable: due to mental status - Medication Medications: Active Medications Generic Name Dose Route Start Last Admin Trade Name Freq PRN Reason Stop Dose Admin Acetaminophen 650 mg 12/01/19 18:30 12/09/19 05:30 Tylenol PO 650 mg Q4H PRN Administration Headache/Fever/Mild Pain (1-3) Amlodipine Besylate 5 mg 12/03/19 21:00 12/09/19 08:10 Norvasc PO 5 mg BID GUIDO Administration Clonidine 0.1 mg 12/03/19 16:00 12/03/19 16:50 Svirtwyz-Ffw-3 Patch TD 0.1 mg Q7DAYS GUIDO Administration Heparin Sodium (Porcine) 5,000 units 12/01/19 21:00 12/09/19 08:11 Heparin SC 5,000 units BID GUIDO Administration Hydralazine HCl 75 mg 12/04/19 21:00 12/09/19 08:09 Apresoline PO 75 mg TID GUDIO Administration Meropenem 500 mg/ Sodium 100 mls @ 200 mls/hr 12/01/19 21:00 12/09/19 08:05 Chloride IVPB 100 mls Q12HR GUIDO Administration Potassium Chloride/Sodium Chloride 1,000 mls @ 125 mls/hr 12/06/19 12:45 03:06 1/2 Ns W/Kcl 20 Meq IV 1,000 mls .Q8H GUIDO Administration Magnesium Sulfate 2 gm/ Device 50 mls @ 100 mls/hr 12/09/19 09:15 12/09/19 09 :38 IVPB 12/09/19 12:00 50 mls NOW GUIDO Administration Magnesium Chloride 64 mg 12/05/19 21:00 12/09/19 08:08 Slow-Mag PO 64 mg BID GUIDO Administration Metoprolol Tartrate 75 mg 12/04/19 21:00 12/09/19 08:09 Lopressor PO 75 mg BID GUIDO Administration Quetiapine Fumarate 25 mg 12/02/19 21:00 12/09/19 08:10 Seroquel PO 25 mg BID GUIDO Administration Saccharomyces Boulardii 250 mg 12/08/19 21:00 12/09/19 08:08 Florastor PO 250 mg BID GUIDO Administration Sodium Chloride 10 ml 12/01/19 21:00 12/09/19 08:11 Flush - Normal Saline IVF 10 ml Q12HR GUIDO Administration - Exam General Appearance: ill appearing Heart: RRR, no gallops Respiratory: no wheezes, rhonchi (at bases) Gastrointestinal: non-tender, non-distended Extremities: no cyanosis, no clubbing Neurological: no new deficit Hosp A/P - Plan PT/OT, DVT proph w/heparin Sepsis due to Klebsiella UTI/Toxic Metabolic Encephalopathy -still has low grade fever -CXR - ?RLL infiltrate - report pending -on IV Meropenem -Mentation slowly improving Gallstone pancreatitis with ?cholangitis/Elevated LFTs/Cholelithiasis -on IV Meropenem -HIDA negative -LFTs improving RAISSA/Hypokalemia/Hypomagensemia/Metabolic acidosis -renal function improving -cont IVF -no obstructive uropathy on CT abd -home Lasix/Lisinopril on hold HTN -controlled -on PO Metoprolol/Hydralazine/Clonidine patch Moderate PEM -has poor appetite -cont Nepro GERD -on PPI Dementia/Anxiety/Depression -on Seroquel -Remeron on hold Chronic anemia suspected due to nutritional deficiency. -no bleeding -stable Thrombocytopenia -resolved PLAN: Await CXR Repeat culture sent Replace Magnesium Cont IV Meropenem Cont other meds as above Will update daughter Cont IVF Consult STAFF EDUCATOR for possible Aspiration Pneumonia
--- NOTE | 2019-12-09 11:21 | RAD ---
SINGLE VIEW CHEST: HISTORY: Fever. COMPARISON: 10/14/2018 FINDINGS: A single view of the chest shows a normal sized cardiomediastinal silhouette. The patient is status p ost sternotomy. Increased interstitial markings are present. There may be a superimposed infiltrate i n the right lower lobe. IMPRESSION: Right lower lobe infiltrate. POS: EAA
--- NOTE | 2019-12-09 11:35 | PRG ---
DATE OF SERVICE: 12/09/2019 SUBJECTIVE: Ms. Norris is an 89-year-old white female, seen by Renal Service for acute kidney injury, that was hemodynamically-mediated renal dysfunction. She was empirically treated with IV hydration, which is slowly improving renal function. She is diuresing well. No complaints of chest pain or shortness of breath. OBJECTIVE: VITAL SIGNS: Blood pressure 151/71, heart rate 83, temperature 100.3, respiratory rate 18, O2 saturation 90%. GENERAL: Awake, alert, comfortable, not in distress. SKIN: Adequate turgor. HEENT: She has pinkish conjunctivae. Anicteric sclerae. No neck mass. No carotid bruits. No JVD. CHEST: No deformities. LUNGS: Clear breath sounds. HEART: Normal sinus rhythm. No murmurs, no gallops, no rubs. ABDOMEN: Globular, soft, nontender. No masses. EXTREMITIES: No edema. MEDICATIONS: Medications of December 09, 2019, was reviewed. LABORATORY DATA: Laboratories of December 09, 2019; white count 9.6, hemoglobin 10.5. Sodium 139, potassium 4.4, chloride 108, carbon dioxide 24, BUN 22, creatinine 1.62, glucose 102, calcium 7.6, magnesium 1.5, AST 31, ALT 89. ASSESSMENT AND PLAN: 1. Acute kidney injury - secondary to hemodynamically-mediated renal dysfunction. Slowly improving renal function with IV hydration. Continue current management. No indication for any dialytic intervention. 2. Intermittent confusion - consider the possibility of an early dementia with this patient. 3. Agree with current management. Job ID: [id number]
[2019-12-09] MEDS: Doxycycline 100 MG CAP PO SCH (22:04)
[2019-12-10 05:55] LABS: #Eosinphils 0.2 thou/uL (0.0-0.7); #Lymphocytes 2.6 thou/uL (1.20-3.40); #Monocytes 0.9 thou/uL (0.11-0.59); #Neutrophils 8.8 thou/uL (1.40-6.50); %Basophils 0.4 % (0.0-1.0); %Eosinophils 1.9 % (0.0-10.0); %Monocytes 7.1 % (0.0-10.0); %Neutrophils 69.6 % (42.0-75.0); Hemoglobin 10.9 g/dL (12.0-16.0); Mean Corpuscular HGB CONC 33.1 g/dL (32.0-36.0); Mean Corpuscular Volume 87.7 fL (78.0-98.0); Mean Platelet Volume 9.1 fL (7.4-10.4); Platelet Count 246 thou/uL (130-400); RBC Distribution Width 13.9 % (11.5-14.5); Red Blood Cell (RBC) Count 3.77 mill/uL (4.20-5.40); White Blood Cell (WBC) Count 12.6 thou/uL (4.8-10.8)
[2019-12-10 06:14] LABS: Anion Gap 13 mmol/L (10-20); BUN (Urea Nitrogen) 19 mg/dL (9.8-20.1); Calc. Creatinine Clearance 29 mL/min (70-130); Carbon Dioxide 20 mmol/L (23-31); Chloride 108 mmol/L (98-107); Estimated GFR-MDRD 38; Potassium 4.6 mmol/L (3.5-5.1); Sodium 136 mmol/L (136-145)
[2019-12-10 06:15] LABS: ALT (SGPT) 38 U/L (8-55); AST (SGOT) 70 U/L (5-34); Albumin 3.4 g/dL (3.4-4.8); Alkaline Phosphatase 91 U/L (40-110); Bilirubin, Total 0.5 mg/dL (0.2-1.2); Calcium 7.9 mg/dL (7.8-10.44); Globulin 2.6 g/dL (2.4-3.5); Glucose 100 mg/dL (83-110); Magnesium 1.8 mg/dL (1.6-2.6); Phosphorus 3.4 mg/dL (2.3-4.7)
[2019-12-10] MEDS: 1/2 NS w/KCL 20 mEq 1,000 ML IV SCH ×3 (07:05→11:00)
[2019-12-10] MEDS: Saccharomyces boulardii 250 MG CAP PO SCH ×2 (07:54→22:22)
[2019-12-10] MEDS: Amlodipine 5 MG TAB PO SCH ×2 (07:54→22:23)
[2019-12-10] MEDS: Magnesium Chloride 64 MG TAB PO SCH ×2 (07:54→22:21)
[2019-12-10] MEDS: Heparin 5,000 UNITS/ML VIAL SC SCH ×2 (07:55→22:23)
[2019-12-10] MEDS: Metoprolol Tartrate 50 MG TAB PO SCH ×2 (07:55→22:22)
[2019-12-10] MEDS: hydrALAZINE 25 MG TAB PO SCH ×3 (07:55→22:22)
[2019-12-10] MEDS: Doxycycline 100 MG CAP PO SCH (07:56)
--- NOTE | 2019-12-10 09:22 | PRG ---
DATE OF SERVICE: 12/10/2019 SUBJECTIVE: Ms. Norris is an 89-year-old white female, who was seen by the Renal Service for her acute kidney injury that was hemodynamically-mediated dysfunction. She received empiric volume repletion. She was also admitted for sepsis syndrome and was treated with IV antibiotics. Renal function has been much improved since admission. Creatinine is now noted at 1.31. OBJECTIVE: VITAL SIGNS: Blood pressure is 168/69, heart rate 86, respiratory rate 18, temperature 98.9, and O2 saturation 91%. GENERAL: The patient is awake, alert, comfortable, not in overt distress. SKIN: Adequate turgor. HEENT: She has pinkish conjunctivae. Anicteric sclerae. NECK: No neck mass. No carotid bruits. No JVD. CHEST: No deformities. LUNGS: Clear breath sounds. No wheezing. No crackles. HEART: Normal sinus rhythm. No murmur. No gallops. No rubs. ABDOMEN: Globular, soft, nontender. No masses. EXTREMITIES: No edema. No deformities. MEDICATIONS: Medications of December 10, 2019, were reviewed. LABORATORY DATA: Laboratories of December 10, 2019, white count 12.6, hemoglobin 10.9. Sodium 136, potassium 4.6, chloride 108, carbon dioxide 20, BUN 19, creatinine 1.39, AST 70, ALT 38, albumin 3.4. ASSESSMENT AND PLAN: Acute kidney injury-superimposed hemodynamically-mediated renal dysfunction. Improving renal function over the last several days. I will still continue the IV fluid until we reach baseline GFR with this patient. From previous records, suggest that the patient's renal function was normal prior to the said admission. No indication for any dialytic intervention. Agree with current management. Recheck basic metabolic panel and CBC in a.m. Job ID: [id number]
[2019-12-10] MEDS: Meropenem 500 MG in Sodium Chloride 0.9% 100 ML IVPB SCH (09:26)
[2019-12-10] MEDS: cloNIDine 0.1mg/24 Hour PATCH TD SCH (10:18)
--- NOTE | 2019-12-10 11:12 | PDOC.HOSPP ---
- Subjective Encounter Date: 12/10/19 Encounter Time: 11:12 Subjective: Patient seen and examined for Sepsis. Remains confused. No fever. No new complaints. No overnight events - Objective Vital Signs & Weight: Vital Signs (12 hours) Temp Pulse Resp BP BP Pulse Ox 12/10/19 08:00 93 L 12/10/19 07:55 86 168/69 H 12/10/19 07:54 86 168/69 H 12/10/19 07:42 98.9 F 86 18 168/59 H 91 L Weight Admit Weight 133 lb Weight 133 lb 11.2 oz I&O: 12/09/19 12/10/19 12/11/19 06:59 06:59 06:59 Intake Total 3445 3148 60 Output Total 2320 1800 Balance 1125 1348 60 Result Diagrams: 12/10/19 05:40 12/10/19 05:40 Radiology Reviewed by me: Yes (CXR - RLL infiltrate) Hospitalist ROS - Review of Systems Respiratory: denies: cough, dry, shortness of breath, hemoptysis, SOB with excertion, pleuritic pain, sputum, wheezing, other Cardiovascular: denies: chest pain, palpitations, orthopnea, paroxysmal noc. dyspnea, edema, light headedness, other Gastrointestinal: denies: nausea, vomiting, abdominal pain, diarrhea, constipation, melena, hematochezia, other - Medication Medications: Active Medications Generic Name Dose Route Start Last Admin Trade Name Freq PRN Reason Stop Dose Admin Acetaminophen 650 mg 12/01/19 18:30 12/09/19 14:40 Tylenol PO 650 mg Q4H PRN Administration Headache/Fever/Mild Pain (1-3) Amlodipine Besylate 5 mg 12/03/19 21:00 12/10/19 07:54 Norvasc PO 5 mg BID GUIDO Administration Clonidine 0.1 mg 12/03/19 16:00 12/10/19 10:18 Gmpmjfre-Olw-7 Patch TD 0.1 mg Q7DAYS GUIDO Administration Doxycycline Hyclate 100 mg 12/09/19 21:00 12/10/19 07:56 Vibramycin PO 100 mg BID GUIDO Administration Heparin Sodium (Porcine) 5,000 units 12/01/19 21:00 12/10/19 07:55 Heparin SC 5,000 units BID GUIDO Administration Hydralazine HCl 75 mg 12/04/19 21:00 12/10/19 07:55 Apresoline PO 75 mg TID GUIDO Administration Meropenem 500 mg/ Sodium 100 mls @ 200 mls/hr 12/01/19 21:00 12/10/19 09:26 Chloride IVPB 100 mls Q12HR GUIDO Administration Potassium Chloride/Sodium Chloride 1,000 mls @ 125 mls/hr 12/06/19 12:45 07:53 1/2 Ns W/Kcl 20 Meq IV 1,000 mls .Q8H GUIDO Administration Magnesium Chloride 64 mg 12/05/19 21:00 12/10/19 07:54 Slow-Mag PO 64 mg BID GUIDO Administration Metoprolol Tartrate 75 mg 12/04/19 21:00 12/10/19 07:55 Lopressor PO 75 mg BID GUIDO Administration Quetiapine Fumarate 25 mg 12/02/19 21:00 12/10/19 07:55 Seroquel PO 25 mg BID GUIDO Administration Saccharomyces Boulardii 250 mg 12/08/19 21:00 12/10/19 07:54 Florastor PO 250 mg BID GUIDO Administration Sodium Chloride 10 ml 12/01/19 21:00 12/10/19 07:57 Flush - Normal Saline IVF 10 ml Q12HR GUIDO Administration - Exam General Appearance: NAD Heart: RRR, no gallops Respiratory: no wheezes Respiratory - other findings: Rales/rhonchi at Rt bases Gastrointestinal: soft, non-tender, normal bowel sounds Extremities: no cyanosis, no clubbing Neurological: no new deficit Hosp A/P - Plan DVT proph w/SCDs Sepsis due to Klebsiella UTI/Toxic Metabolic Encephalopathy -fever improving -on IV Meropenem -Mentation slowly improving Aspiration Pneumonia -on Meropenem -diagnosed on 12/08 Gallstone pancreatitis with ?cholangitis/Elevated LFTs/Cholelithiasis -on IV Meropenem -HIDA negative -LFTs improving RAISSA/Hypokalemia/Hypomagensemia/Metabolic acidosis -renal function improving -no obstructive uropathy on CT abd -home Lasix/Lisinopril on hold HTN -controlled -on PO Metoprolol/Hydralazine/Clonidine patch Moderate PEM -has poor appetite -cont Nepro GERD -on PPI Dementia/Anxiety/Depression -on Seroquel -Remeron on hold Chronic anemia suspected due to nutritional deficiency. -no bleeding -stable Thrombocytopenia -resolved Swallow dysfunction PLAN: Repeat culture reviewed Cont IV Meropenem Reduce IVF Will start modified diet per TOOL GRINDER OPERATOR Await ID input Cont other meds as above
--- NOTE | 2019-12-10 17:35 | CON ---
DATE OF CONSULTATION: REASON FOR CONSULTATION: Possible cholecystitis. HISTORY OF PRESENT ILLNESS: An 89-year-old whom I had seen about a year ago when she presented with a history of dementia, abdominal pain, nausea, and vomiting. CT of abdomen showed a thickening of the small bowel loops with mesenteric edema and a large staghorn calculus. The impression was that differential diagnosis includes some form of gastroenteritis or ischemic bowel disease versus pyelonephritis versus gallbladder disease or cholecystitis. In that exam, she had no liver function abnormalities and physical examination was benign, so did not feel that there was enough evidence to suggest cholecystitis. She was discharged on 10/12/2018, and now she is back in the hospital with nausea and vomiting and apparently abdominal tenderness on exam. Other findings included BP 130/70, pulse 86, respirations 18, O2 saturation 97, and temperature 98.2. On exam, tenderness in the abdominal area, which was diffuse with moderate intensity. Other findings are white cell count 11.2, hemoglobin 10.9, platelets 133, and 84% neutrophils. She had a positive DIC screen. Sodium 140 and creatinine was 5.22, which is markedly elevated compared with her baseline. Urinalysis with greater than 50 wbc's and microbiology with Klebsiella pneumoniae in urine culture, broad susceptibility profile. Imaging included an abdomen and pelvis CT scan, which demonstrated inflammatory changes centered in the epigastric region, right upper quadrant, and stranding of the abdominal mesentery. Kidney imaging re-demonstrated staghorn calculus occupying the left renal pelvis, but no obstruction. At this time, the patient had a HIDA scan, which showed normal passage of radiotracer into the small bowel loops. The chest x-ray with right lower lobe infiltrate. She is currently receiving doxycycline and meropenem. Currently, Ms. Norris keeps her eyes closed. She does not want to interact with examiner and she was a quite reluctant patient during my examination. Review of systems was not reliable. She basically stated that she did not have any pain unless I started poking in her abdomen. No respiratory symptoms are identified. She is voiding, indwelling Mehta catheter. PAST MEDICAL HISTORY: 1. Alzheimer's dementia. 2. Cardiomyopathy. 3. Depression. 4. GERD. 5. Staghorn calculus, right kidney. 6. Cholelithiasis. PAST SURGICAL HISTORY: 1. Right hip replacement. 2. Cardiac surgery. ALLERGIES: NONE. SOCIAL HISTORY: [facility] resident. Never smoker. FAMILY HISTORY: Noncontributory. CURRENT MEDICATIONS: 1. Tylenol. 2. Norvasc. 3. Catapres. 4. Vibramycin. 5. Heparin. 6. Apresoline. 7. Meropenem. 8. Lopressor. 9. Zofran. 10. Florastor. PHYSICAL EXAMINATION: VITAL SIGNS: T-max 100.3, blood pressure 120/60, pulse 82, respirations 18, and O2 saturation 92. SKIN: A few red areas in the perineal region and lower extremities. Peripheral IV access. Mehta catheter. No lymphadenopathy. HEENT: Sclerae white. Pupils are about 2 mm and reactive. Oral cavity with no quinault teeth remaining. Oral mucosa is normal. NECK: Supple. No jugular vein distention. LUNGS: Symmetric. Clear breath sounds. HEART: S1 and S2. Regular rate with a soft aortic murmur. ABDOMEN: Rqvq-bd-fqoultivuu distended and there is some tenderness in the right side of the abdomen, mostly in the right upper quadrant. No bladder distention. EXTREMITIES: No joint inflammatory activity. LABORATORY DATA: Urinalysis with 21 to 50 wbc's. White cell count is down to 6.9, hemoglobin 11, and platelets 154. Creatinine is down to 1.31 and GFR 38. Gallbladder ultrasound showed distended lumen of the gallbladder, mural thickening, at least 4 mm. ASSESSMENT: The patient most likely passed a stone, had some transient obstruction, developed cholecystitis. Obstruction resolved and now she is hopefully improving. Since she does not need drainage because the patency of the cystic duct is preserved and I would recommend a total of 7 days of meropenem, which has been shown to be equivalent to longer courses. Increased dose to 1 g q.12 h. She has been receiving meropenem since the , so she has had more than 7 days and we could try to stop the antimicrobial and see how she does off antimicrobial therapy. She probably would otherwise need a cholecystectomy obviously, but that does not seem to be an option. She also has some associated pancreatitis. Job ID: [id number]
[2019-12-10] MEDS ORDERED: Mirtazapine 15 MG TAB PO SCH (21:00)
[2019-12-10] MEDS: MEROPENEM 1 GM/50 ML 1 GM in Premix Bag 1 BAG IVPB SCH (22:36)
[2019-12-11] MEDS: 1/2 NS w/KCL 20 mEq 1,000 ML IV SCH ×2 (02:00→17:19)
[2019-12-11 05:54] LABS: #Basophils 0.1 thou/uL (0.0-0.2); #Eosinphils 0.3 thou/uL (0.0-0.7); #Lymphocytes 1.7 thou/uL (1.20-3.40); #Monocytes 0.8 thou/uL (0.11-0.59); #Neutrophils 5.7 thou/uL (1.40-6.50); %Basophils 0.6 % (0.0-1.0); %Eosinophils 3.3 % (0.0-10.0); %Lymphocytes 19.6 % (21.0-51.0); %Monocytes 9.2 % (0.0-10.0); %Neutrophils 67.2 % (42.0-75.0); Hemoglobin 9.9 g/dL (12.0-16.0); Mean Corpuscular HGB CONC 32.7 g/dL (32.0-36.0); Mean Corpuscular Hemoglobin 28.9 pg (27.0-31.0); Mean Corpuscular Volume 88.4 fL (78.0-98.0); Mean Platelet Volume 9.6 fL (7.4-10.4); Platelet Count 202 thou/uL (130-400); RBC Distribution Width 13.9 % (11.5-14.5); Red Blood Cell (RBC) Count 3.43 mill/uL (4.20-5.40); White Blood Cell (WBC) Count 8.5 thou/uL (4.8-10.8)
[2019-12-11 06:30] LABS: ALT (SGPT) 32 U/L (8-55); AST (SGOT) 47 U/L (5-34); Albumin 3.2 g/dL (3.4-4.8); Alkaline Phosphatase 82 U/L (40-110); Anion Gap 11 mmol/L (10-20); BUN (Urea Nitrogen) 18 mg/dL (9.8-20.1); Bilirubin, Total 0.5 mg/dL (0.2-1.2); Calc. Creatinine Clearance 35 mL/min (70-130); Calcium 7.9 mg/dL (7.8-10.44); Carbon Dioxide 20 mmol/L (23-31); Chloride 110 mmol/L (98-107); Estimated GFR-MDRD 49; Globulin 2.5 g/dL (2.4-3.5); Glucose 95 mg/dL (83-110); Lipase 110 U/L (8-78); Magnesium 1.4 mg/dL (1.6-2.6); Potassium 4.3 mmol/L (3.5-5.1); Protein, Total 5.7 g/dL (6.0-8.3); Sodium 137 mmol/L (136-145)
--- NOTE | 2019-12-11 08:49 | PRG ---
DATE OF SERVICE: 12/11/2019 SUBJECTIVE: Ms. Norris is an 89-year-old white female, who was seen by the Renal Service for her acute kidney injury. She has a superimposed hemodynamically-mediated renal dysfunction. She also was noted to be septic, was treated empirically with IV antibiotics. Renal function has been slowly improving with gentle IV hydration. Creatinine now is noted at 1.07, which is almost near baseline. No other complaints. OBJECTIVE: VITAL SIGNS: Blood pressure 159/65, heart rate 82, respiratory rate 15, temperature 98.8, and O2 sat 94%. GENERAL: The patient is awake, teary eyed, somewhat confused. SKIN: Adequate turgor. HEENT: She has pinkish conjunctivae. Anicteric sclerae. NECK: No neck mass. No carotid bruits. No JVD. CHEST: No deformities. LUNGS: Clear breath sounds. No wheezing. No crackles. HEART: Normal sinus rhythm. No murmur. No gallops. No rubs. ABDOMEN: Globular, soft, and nontender. No masses. EXTREMITIES: No edema. No deformities. MEDICATIONS: Medications of December 11, 2019, were reviewed. LABORATORY DATA: December 11, 2019; white count 8.5, hemoglobin 9.9, sodium 137, potassium 4.3, chloride 110, carbon dioxide 20, BUN 18, creatinine 1.07, magnesium 1.4, AST 47, and ALT 32. ASSESSMENT AND PLAN: 1. Acute kidney injury - superimposed hemodynamically-mediated dysfunction. Much improved with gentle volume repletion. No indication for any dialytic intervention. 2. Cholecystitis, clinically improving. ID and GI had followed up this patient. 3. Overall agree with current management. Job ID: [id number]
[2019-12-11] MEDS: Heparin 5,000 UNITS/ML VIAL SC SCH ×2 (09:16→21:28)
[2019-12-11] MEDS: Amlodipine 5 MG TAB PO SCH ×2 (09:17→21:22)
[2019-12-11] MEDS: hydrALAZINE 25 MG TAB PO SCH ×3 (09:18→21:22)
[2019-12-11] MEDS: Metoprolol Tartrate 50 MG TAB PO SCH ×2 (09:19→21:22)
[2019-12-11] MEDS: Saccharomyces boulardii 250 MG CAP PO SCH ×2 (09:19→21:21)
[2019-12-11] MEDS: Magnesium Chloride 64 MG TAB PO SCH ×2 (09:20→21:23)
[2019-12-11] MEDS ORDERED: Magnesium Sulfate 4 GM in Sodium Chloride 0.9% 250 ML 250 ML IVPB SCH (09:45)
[2019-12-11] MEDS: MEROPENEM 1 GM/50 ML 1 GM in Premix Bag 1 BAG IVPB SCH ×2 (10:17→21:21)
[2019-12-11] MEDS: guaiFENesin ER 600 MG TAB PO SCH (21:23)
[2019-12-12 06:36] LABS: #Eosinphils 0.2 thou/uL (0.0-0.7); #Lymphocytes 1.8 thou/uL (1.20-3.40); #Monocytes 0.9 thou/uL (0.11-0.59); #Neutrophils 4.4 thou/uL (1.40-6.50); %Basophils 0.6 % (0.0-1.0); %Lymphocytes 24.2 % (21.0-51.0); %Monocytes 12.4 % (0.0-10.0); %Neutrophils 59.8 % (42.0-75.0); Hemoglobin 10.1 g/dL (12.0-16.0); Mean Corpuscular HGB CONC 32.4 g/dL (32.0-36.0); Mean Corpuscular Hemoglobin 28.7 pg (27.0-31.0); Mean Corpuscular Volume 88.7 fL (78.0-98.0); Platelet Count 228 thou/uL (130-400); RBC Distribution Width 13.7 % (11.5-14.5); Red Blood Cell (RBC) Count 3.51 mill/uL (4.20-5.40); White Blood Cell (WBC) Count 7.3 thou/uL (4.8-10.8)
[2019-12-12 06:57] LABS: ALT (SGPT) 31 U/L (8-55); AST (SGOT) 39 U/L (5-34); Albumin 3.2 g/dL (3.4-4.8); Alkaline Phosphatase 80 U/L (40-110); Anion Gap 10 mmol/L (10-20); BUN (Urea Nitrogen) 15 mg/dL (9.8-20.1); Bilirubin, Total 0.5 mg/dL (0.2-1.2); Calc. Creatinine Clearance 38 mL/min (70-130); Carbon Dioxide 21 mmol/L (23-31); Chloride 111 mmol/L (98-107); Estimated GFR-MDRD 53; Globulin 2.5 g/dL (2.4-3.5); Glucose 91 mg/dL (83-110); Magnesium 2.1 mg/dL (1.6-2.6); Potassium 4.5 mmol/L (3.5-5.1); Protein, Total 5.7 g/dL (6.0-8.3); Sodium 137 mmol/L (136-145)
[2019-12-12] MEDS: Metoprolol Tartrate 50 MG TAB PO SCH ×2 (09:17→21:50)
[2019-12-12] MEDS: hydrALAZINE 25 MG TAB PO SCH ×3 (09:17→21:52)
[2019-12-12] MEDS: Amlodipine 5 MG TAB PO SCH ×2 (09:17→21:52)
[2019-12-12] MEDS: Saccharomyces boulardii 250 MG CAP PO SCH ×2 (09:18→21:50)
[2019-12-12] MEDS: guaiFENesin ER 600 MG TAB PO SCH ×2 (09:18→21:52)
[2019-12-12] MEDS: Magnesium Chloride 64 MG TAB PO SCH ×2 (09:18→21:53)
[2019-12-12] MEDS: Heparin 5,000 UNITS/ML VIAL SC SCH ×2 (09:18→21:52)
[2019-12-12] MEDS: MEROPENEM 1 GM/50 ML 1 GM in Premix Bag 1 BAG IVPB SCH ×2 (09:18→21:53)
[2019-12-12] MEDS: 1/2 NS w/KCL 20 mEq 1,000 ML IV SCH (09:46)
--- NOTE | 2019-12-12 10:45 | PDOC.HOSPP ---
- Subjective Encounter Date: 12/11/19 Encounter Time: 14:00 Subjective: Patient seen and examined for Sepsis. Intermittent confusion. No new complaints. No overnight events - Objective Vital Signs & Weight: Vital Signs (12 hours) Temp Pulse Resp BP Pulse Ox 12/12/19 07:12 98.4 F 77 17 117/67 93 L 12/12/19 03:00 99.2 F 82 18 154/69 H 91 L Weight Admit Weight 133 lb Weight 133 lb 11.2 oz I&O: 12/11/19 12/12/19 12/13/19 06:59 06:59 06:59 Intake Total 2300 1320 Output Total 1800 1375 Balance 500 -55 Result Diagrams: 12/12/19 06:08 12/12/19 06:08 Hospitalist ROS - Review of Systems Respiratory: denies: cough, dry, shortness of breath, hemoptysis, SOB with excertion, pleuritic pain, sputum, wheezing, other Cardiovascular: denies: chest pain, palpitations, orthopnea, paroxysmal noc. dyspnea, edema, light headedness, other - Medication Medications: Active Medications Generic Name Dose Route Start Last Admin Trade Name Freq PRN Reason Stop Dose Admin Acetaminophen 650 mg 12/01/19 18:30 12/09/19 14:40 Tylenol PO 650 mg Q4H PRN Administration Headache/Fever/Mild Pain (1-3) Amlodipine Besylate 5 mg 12/03/19 21:00 12/12/19 09:17 Norvasc PO 5 mg BID GUIDO Administration Clonidine 0.1 mg 12/03/19 16:00 12/10/19 10:18 Nenmpdqa-Ytb-8 Patch TD 0.1 mg Q7DAYS GUIDO Administration Guaifenesin 600 mg 12/11/19 21:00 12/12/19 09:18 Mucinex PO 600 mg Q12HR GUIDO Administration Heparin Sodium (Porcine) 5,000 units 12/01/19 21:00 12/12/19 09:18 Heparin SC 5,000 units BID GUIDO Administration Hydralazine HCl 75 mg 12/04/19 21:00 12/12/19 09:17 Apresoline PO 75 mg TID GUIDO Administration Meropenem 1 gm/ Device 50 mls @ 100 mls/hr 12/10/19 21:00 12/12/19 09:18 IVPB 50 mls Q12HR GUIDO Administration Potassium Chloride/Sodium Chloride 1,000 mls @ 50 mls/hr 12/11/19 13:44 12/11 09:46 1/2 Ns W/Kcl 20 Meq IV Not Given .Q20H GUIDO Magnesium Chloride 64 mg 12/05/19 21:00 12/12/19 09:18 Slow-Mag PO 64 mg BID GUIDO Administration Metoprolol Tartrate 75 mg 12/04/19 21:00 12/12/19 09:17 Lopressor PO 75 mg BID GUIDO Administration Quetiapine Fumarate 25 mg 12/02/19 21:00 12/12/19 09:17 Seroquel PO 25 mg BID GUIDO Administration Saccharomyces Boulardii 250 mg 12/08/19 21:00 12/12/19 09:18 Florastor PO 250 mg BID GUIDO Administration Sodium Chloride 10 ml 12/01/19 21:00 12/12/19 09:18 Flush - Normal Saline IVF 10 ml Q12HR GUIDO Administration - Exam General Appearance: NAD Heart: RRR, no gallops Respiratory: no wheezes, rhonchi (at bases) Gastrointestinal: soft, non-distended, normal bowel sounds, no guarding, no rigidity Extremities: no cyanosis, no clubbing Neurological: no new deficit Hosp A/P - Plan DVT proph w/SCDs Sepsis due to Klebsiella UTI/Toxic Metabolic Encephalopathy -fever improving -on IV Meropenem -Mentation slowly improving Aspiration Pneumonia -on Meropenem -diagnosed on 12/08 Gallstone pancreatitis with suspected acute cholecystitis/?cholangitis/ -on IV Meropenem -HIDA negative -LFTs improving RAISSA/Hypokalemia/Hypomagnesemia/Metabolic acidosis -renal function improving -no obstructive uropathy on CT abd -home Lasix/Lisinopril on hold HTN -controlled -on PO Metoprolol/Hydralazine/Clonidine patch Moderate PEM -has poor appetite -cont Nepro GERD -on PPI Dementia/Anxiety/Depression -on Seroquel -Remeron on hold Chronic anemia suspected due to nutritional deficiency. -no bleeding -stable Elevated LFTs/Cholelithiasis -improving Thrombocytopenia -resolved Swallow dysfunction PLAN: Cont IVF - reduce to 50 ml Cont IV Meropenem Replace Magnesium - Mg 1.4 Cont modified diet per TRADING ANALYST Cont other meds as above Remains confused
[2019-12-12] MEDS: Sodium Chloride 0.45% 1,000 ML IV SCH (12:44)
--- NOTE | 2019-12-12 13:49 | PDOC.HOSPP ---
- Subjective Encounter Date: 12/12/19 Encounter Time: 11:30 Subjective: Patient seen and examined for AMS. Mentation improving. No new fever or chills. No new complaints. No overnight events - Objective Vital Signs & Weight: Vital Signs (12 hours) Temp Pulse Resp BP Pulse Ox 12/12/19 11:19 98.5 F 83 17 146/75 H 94 L 12/12/19 07:12 98.4 F 77 17 117/67 93 L 12/12/19 03:00 99.2 F 82 18 154/69 H 91 L Weight Admit Weight 133 lb Weight 133 lb 11.2 oz I&O: 12/11/19 12/12/19 12/13/19 06:59 06:59 06:59 Intake Total 2300 1320 Output Total 1800 1375 Balance 500 -55 Result Diagrams: 12/12/19 06:08 12/12/19 06:08 Hospitalist ROS - Review of Systems Respiratory: denies: cough, dry, shortness of breath, hemoptysis, SOB with excertion, pleuritic pain, sputum, wheezing, other Cardiovascular: denies: chest pain, palpitations, orthopnea, paroxysmal noc. dyspnea, edema, light headedness, other - Medication Medications: Active Medications Generic Name Dose Route Start Last Admin Trade Name Freq PRN Reason Stop Dose Admin Acetaminophen 650 mg 12/01/19 18:30 12/09/19 14:40 Tylenol PO 650 mg Q4H PRN Administration Headache/Fever/Mild Pain (1-3) Amlodipine Besylate 5 mg 12/03/19 21:00 12/12/19 09:17 Norvasc PO 5 mg BID GUIDO Administration Clonidine 0.1 mg 12/03/19 16:00 12/10/19 10:18 Lzbfdaaw-Wus-4 Patch TD 0.1 mg Q7DAYS GUIDO Administration Guaifenesin 600 mg 12/11/19 21:00 12/12/19 09:18 Mucinex PO 600 mg Q12HR GUIDO Administration Heparin Sodium (Porcine) 5,000 units 12/01/19 21:00 12/12/19 09:18 Heparin SC 5,000 units BID GUIDO Administration Hydralazine HCl 75 mg 12/04/19 21:00 12/12/19 09:17 Apresoline PO 75 mg TID GUIDO Administration Meropenem 1 gm/ Device 50 mls @ 100 mls/hr 12/10/19 21:00 12/12/19 09:18 IVPB 50 mls Q12HR GUIDO Administration Sodium Chloride 1,000 mls @ 50 mls/hr 12/12/19 12:15 12/12/19 12:44 1/2 Normal Saline IV 1,000 mls .Q20H GUIDO Administration Magnesium Chloride 64 mg 12/05/19 21:00 12/12/19 09:18 Slow-Mag PO 64 mg BID GUIDO Administration Metoprolol Tartrate 75 mg 12/04/19 21:00 12/12/19 09:17 Lopressor PO 75 mg BID GUIDO Administration Quetiapine Fumarate 25 mg 12/02/19 21:00 12/12/19 09:17 Seroquel PO 25 mg BID GUIDO Administration Saccharomyces Boulardii 250 mg 12/08/19 21:00 12/12/19 09:18 Florastor PO 250 mg BID GUIDO Administration Sodium Chloride 10 ml 12/01/19 21:00 12/12/19 09:18 Flush - Normal Saline IVF 10 ml Q12HR GUIDO Administration - Exam General Appearance: NAD Neck: supple, no JVD Heart: no gallops, no rubs Respiratory: no wheezes, rhonchi (at bases B/L) Gastrointestinal: soft, non-tender, normal bowel sounds Extremities: no cyanosis Neurological: no new deficit Hosp A/P - Plan DVT proph w/lovenox, DVT proph w/SCDs Sepsis due to Klebsiella UTI/Gallstone pancreatitis with suspected acute cholecystitis/?cholangitis -fever improving -on IV Meropenem -Mentation slowly improving Toxic Metabolic Encephalopathy -multifactorial -improving Aspiration Pneumonia causing Sepsis -on Meropenem -diagnosed on 12/08 RAISSA/Hypokalemia/Hypomagnesemia/Metabolic acidosis -renal function improving -no obstructive uropathy on CT abd -home Lasix/Lisinopril on hold HTN -controlled -on PO Metoprolol/Hydralazine/Clonidine patch Moderate PEM -has poor appetite -cont Nepro GERD -on PPI Dementia/Anxiety/Depression -on Seroquel -Remeron on hold Chronic anemia suspected due to nutritional deficiency. -no bleeding -stable Elevated LFTs/Cholelithiasis -improving Thrombocytopenia -resolved Swallow dysfunction PLAN: change IVF to 1/2 NS Cont IV Meropenem Cont modified diet per VOICE ENGINEER Will discuss with ID regarding outpt Atbx Cont other meds as above DC planning in 24 hours if stable
[2019-12-13] MEDS: Heparin 5,000 UNITS/ML VIAL SC SCH (07:41)
[2019-12-13] MEDS: Metoprolol Tartrate 50 MG TAB PO SCH ×2 (07:42→21:08)
[2019-12-13] MEDS: Amlodipine 5 MG TAB PO SCH ×2 (07:42→21:08)
[2019-12-13] MEDS: hydrALAZINE 25 MG TAB PO SCH ×3 (07:42→21:24)
[2019-12-13] MEDS: Saccharomyces boulardii 250 MG CAP PO SCH ×2 (07:42→21:08)
[2019-12-13] MEDS: guaiFENesin ER 600 MG TAB PO SCH ×2 (07:42→21:10)
[2019-12-13] MEDS: Sodium Chloride 0.45% 1,000 ML IV SCH (07:43)
[2019-12-13] MEDS: Magnesium Chloride 64 MG TAB PO SCH ×2 (07:43→21:06)
[2019-12-13] MEDS: MEROPENEM 1 GM/50 ML 1 GM in Premix Bag 1 BAG IVPB SCH ×2 (07:44→21:09)
[2019-12-13] MEDS: Acetaminophen 325 MG TAB PO PRN ×2 (16:30→21:07)
--- NOTE | 2019-12-13 19:14 | PDOC.HOSPP ---
- Subjective Encounter Date: 12/13/19 Encounter Time: 15:00 Subjective: Patient seen and examined for Encephalopathy - Remains confused. Poor appetite. No overnight events - Objective Vital Signs & Weight: Vital Signs (12 hours) Temp Pulse Resp BP Pulse Ox 12/13/19 18:05 99.1 F 12/13/19 16:25 99.4 F 89 18 152/63 H 92 L 12/13/19 15:20 100.2 F H 89 16 184/67 H 92 L 12/13/19 11:31 78 16 92 L 12/13/19 07:38 99.2 F 85 20 130/72 91 L Weight Admit Weight 133 lb Weight 133 lb 11.2 oz I&O: 12/12/19 12/13/19 12/14/19 06:59 06:59 06:59 Intake Total 1320 1490 800 Output Total 1375 1100 1100 Balance -55 390 -300 Result Diagrams: 12/12/19 06:08 12/12/19 06:08 Hospitalist ROS - Review of Systems ROS unobtainable: due to mental status - Medication Medications: Active Medications Generic Name Dose Route Start Last Admin Trade Name Freq PRN Reason Stop Dose Admin Acetaminophen 650 mg 12/01/19 18:30 12/13/19 16:30 Tylenol PO 650 mg Q4H PRN Administration Headache/Fever/Mild Pain (1-3) Amlodipine Besylate 5 mg 12/03/19 21:00 12/13/19 07:42 Norvasc PO 5 mg BID GUIDO Administration Clonidine 0.1 mg 12/03/19 16:00 12/10/19 10:18 Uvauerrf-Auk-1 Patch TD 0.1 mg Q7DAYS GUIDO Administration Guaifenesin 600 mg 12/11/19 21:00 12/13/19 07:42 Mucinex PO 600 mg Q12HR GUIDO Administration Heparin Sodium (Porcine) 5,000 units 12/01/19 21:00 12/13/19 07:41 Heparin SC 5,000 units BID GUIDO Administration Hydralazine HCl 75 mg 12/04/19 21:00 12/13/19 14:52 Apresoline PO 75 mg TID GUIDO Administration Meropenem 1 gm/ Device 50 mls @ 100 mls/hr 12/10/19 21:00 12/13/19 07:44 IVPB 50 mls Q12HR GUIDO Administration Sodium Chloride 1,000 mls @ 50 mls/hr 12/12/19 12:15 12/13/19 07:43 1/2 Normal Saline IV 1,000 mls .Q20H GUIDO Administration Magnesium Chloride 64 mg 12/05/19 21:00 12/13/19 07:43 Slow-Mag PO 64 mg BID GUIDO Administration Metoprolol Tartrate 75 mg 12/04/19 21:00 12/13/19 07:42 Lopressor PO 75 mg BID GUIDO Administration Quetiapine Fumarate 25 mg 12/02/19 21:00 12/13/19 07:42 Seroquel PO 25 mg BID GUIDO Administration Saccharomyces Boulardii 250 mg 12/08/19 21:00 12/13/19 07:42 Florastor PO 250 mg BID GUIDO Administration Sodium Chloride 10 ml 12/01/19 21:00 12/13/19 07:43 Flush - Normal Saline IVF 10 ml Q12HR GUIDO Administration - Exam General Appearance: NAD Heart: RRR, no gallops Respiratory: no wheezes, rhonchi Gastrointestinal: soft, non-tender, non-distended Extremities: no cyanosis, no clubbing Hosp A/P - Plan DVT proph w/heparin, DVT proph w/lovenox, DVT proph w/SCDs Sepsis due to Klebsiella UTI/Gallstone pancreatitis with suspected acute cholecystitis/?cholangitis -still febrile with confusion -on IV Meropenem Toxic Metabolic Encephalopathy -multifactorial -improving Aspiration Pneumonia causing Sepsis -on Meropenem -diagnosed on 12/08 RAISSA/Hypokalemia/Hypomagnesemia/Metabolic acidosis -renal function improving -no obstructive uropathy on CT abd -home Lasix/Lisinopril on hold HTN -controlled -on PO Metoprolol/Hydralazine/Clonidine patch Moderate PEM -has poor appetite -cont Nepro GERD -on PPI Dementia/Anxiety/Depression -on Seroquel -Remeron on hold Chronic anemia suspected due to nutritional deficiency. -no bleeding -stable Elevated LFTs/Cholelithiasis -improving Thrombocytopenia -resolved Swallow dysfunction - on modified diet PLAN: Case d/w Dr Singh - Dr Singh recommended to r/o COVID Cont gentle hydration due to poor appetite Cont IV Meropenem AM labs Cont other meds as above Droplet Isolation Family updated
[2019-12-13] MEDS: Enoxaparin Sodium 40 MG/0.4 ML SYRINGE SC SCH (21:07)
[2019-12-14] MEDS: Sodium Chloride 0.45% 1,000 ML IV SCH (04:20)
[2019-12-14] MEDS: Magnesium Chloride 64 MG TAB PO SCH ×2 (09:04→20:26)
[2019-12-14] MEDS: hydrALAZINE 25 MG TAB PO SCH ×3 (09:05→20:24)
[2019-12-14] MEDS: guaiFENesin ER 600 MG TAB PO SCH ×2 (09:05→20:26)
[2019-12-14] MEDS: Saccharomyces boulardii 250 MG CAP PO SCH ×2 (09:05→20:23)
[2019-12-14] MEDS: Metoprolol Tartrate 50 MG TAB PO SCH ×2 (09:05→20:23)
[2019-12-14] MEDS: Amlodipine 5 MG TAB PO SCH ×2 (09:06→20:26)
[2019-12-14] MEDS: MEROPENEM 1 GM/50 ML 1 GM in Premix Bag 1 BAG IVPB SCH (09:07)
[2019-12-14 09:51] LABS: Mean Corpuscular HGB CONC 31.9 g/dL (32.0-36.0); Mean Corpuscular Hemoglobin 28.6 pg (27.0-31.0); Mean Corpuscular Volume 89.5 fL (78.0-98.0); Mean Platelet Volume 8.8 fL (7.4-10.4); Platelet Count 214 thou/uL (130-400); RBC Distribution Width 13.7 % (11.5-14.5); Red Blood Cell (RBC) Count 3.48 mill/uL (4.20-5.40); White Blood Cell (WBC) Count 4.7 thou/uL (4.8-10.8)
[2019-12-14 10:13] LABS: ALT (SGPT) 20 U/L (8-55); AST (SGOT) 23 U/L (5-34); Albumin 3.4 g/dL (3.4-4.8); Alkaline Phosphatase 77 U/L (40-110); Anion Gap 15 mmol/L (10-20); BUN (Urea Nitrogen) 12 mg/dL (9.8-20.1); Bilirubin, Total 0.5 mg/dL (0.2-1.2); Calc. Creatinine Clearance 49 mL/min (70-130); Calcium 8.3 mg/dL (7.8-10.44); Carbon Dioxide 20 mmol/L (23-31); Chloride 108 mmol/L (98-107); Estimated GFR-MDRD 70; Globulin 2.7 g/dL (2.4-3.5); Glucose 87 mg/dL (83-110); Potassium 3.6 mmol/L (3.5-5.1); Protein, Total 6.1 g/dL (6.0-8.3); Sodium 139 mmol/L (136-145)
[2019-12-14 10:20] LABS: Band 2 % (5-11); Eosinophils 5 % (0-10); Lymphocytes 33 % (21-51); MDiff Complete? YES; Monocytes 17 % (0-10); Neutrophil 43 % (42-75); Platelet Morphology Comment Appears Adequate; Polychromasia SLIGHT = 2-3 cells (100X) (0-2/hpf)
[2019-12-14 12:19] LABS: SARS-CoV-2 MS2 Positive; SARS-CoV-2 N Gene Negative; SARS-CoV-2 S Gene Negative; SARS-CoV-2 orf1ab Negative
[2019-12-14] MEDS: Acetaminophen 325 MG TAB PO PRN (15:57)
--- NOTE | 2019-12-14 16:29 | PDOC.HOSPP ---
- Subjective Encounter Date: 12/14/19 Encounter Time: 15:30 Subjective: Patient seen and examined for Sepsis. Mentation improving. COVID negative. No new complaints. No overnight events - Objective Vital Signs & Weight: Vital Signs (12 hours) Temp Pulse Resp BP BP BP Pulse Ox 12/14/19 15:57 86 143/55 H 12/14/19 15:56 99.3 F 86 16 143/55 H 94 L 12/14/19 08:00 99.5 F 91 20 171/66 H 92 L 12/14/19 04:30 98.6 F 77 17 160/70 H 93 L Weight Admit Weight 133 lb Weight 133 lb 11.2 oz I&O: 12/13/19 12/14/19 12/15/19 06:59 06:59 06:59 Intake Total 1490 1550 Output Total 1100 1700 Balance 390 -150 Result Diagrams: 12/14/19 09:17 12/14/19 09:17 Hospitalist ROS - Review of Systems Respiratory: denies: cough, dry, shortness of breath, hemoptysis, SOB with excertion, pleuritic pain, sputum, wheezing, other Cardiovascular: denies: chest pain, palpitations, orthopnea, paroxysmal noc. dyspnea, edema, light headedness, other - Medication Medications: Active Medications Generic Name Dose Route Start Last Admin Trade Name Freq PRN Reason Stop Dose Admin Acetaminophen 650 mg 12/01/19 18:30 12/14/19 15:57 Tylenol PO 650 mg Q4H PRN Administration Headache/Fever/Mild Pain (1-3) Amlodipine Besylate 5 mg 12/03/19 21:00 12/14/19 09:06 Norvasc PO 5 mg BID GUIDO Administration Clonidine 0.1 mg 12/03/19 16:00 12/10/19 10:18 Uioxunsh-Pcc-5 Patch TD 0.1 mg Q7DAYS GUIDO Administration Enoxaparin Sodium 40 mg 12/13/19 21:00 12/13/19 21:07 Lovenox SC 40 mg 2100 GUIDO Administration Guaifenesin 600 mg 12/11/19 21:00 12/14/19 09:05 Mucinex PO 600 mg Q12HR GUIDO Administration Hydralazine HCl 75 mg 12/04/19 21:00 12/14/19 15:57 Apresoline PO 75 mg TID GUIDO Administration Sodium Chloride 1,000 mls @ 50 mls/hr 12/12/19 12:15 12/14/19 04:20 1/2 Normal Saline IV 1,000 mls .Q20H GUIDO Administration Magnesium Chloride 64 mg 12/05/19 21:00 12/14/19 09:04 Slow-Mag PO 64 mg BID GUIDO Administration Metoprolol Tartrate 75 mg 12/04/19 21:00 12/14/19 09:05 Lopressor PO 75 mg BID GUIDO Administration Quetiapine Fumarate 25 mg 12/02/19 21:00 12/14/19 09:06 Seroquel PO 25 mg BID GUIDO Administration Saccharomyces Boulardii 250 mg 12/08/19 21:00 12/14/19 09:05 Florastor PO 250 mg BID GUIDO Administration Sodium Chloride 10 ml 12/01/19 21:00 12/14/19 09:07 Flush - Normal Saline IVF 10 ml Q12HR GUIDO Administration - Exam General Appearance: NAD Heart: RRR, no gallops Respiratory: no rales, rhonchi Gastrointestinal: soft, normal bowel sounds, no guarding, no rigidity Extremities: no cyanosis, no clubbing Hosp A/P - Plan DVT proph w/lovenox, DVT proph w/SCDs Sepsis due to Klebsiella UTI/Gallstone pancreatitis with suspected acute cholecystitis/?cholangitis -confusion improving -on IV Meropenem Toxic Metabolic Encephalopathy -multifactorial -improving Aspiration Pneumonia causing Sepsis -on Meropenem -diagnosed on 12/08 RAISSA/Hypokalemia/Hypomagnesemia/Metabolic acidosis -renal function improving -no obstructive uropathy on CT abd -home Lasix/Lisinopril on hold HTN -controlled -on PO Metoprolol/Hydralazine/Clonidine patch Moderate PEM -has poor appetite -cont Nepro GERD -on PPI Dementia/Anxiety/Depression -on Seroquel -Remeron on hold Chronic anemia suspected due to nutritional deficiency. -no bleeding -stable Elevated LFTs/Cholelithiasis -improving Thrombocytopenia -resolved Swallow dysfunction - on modified diet PLAN: COVID neg dc Meropenem PO Augmentin AM labs Cont other meds as above Family updated
--- NOTE | 2019-12-14 17:03 | RAD ---
Exam: Chest one view HISTORY:Follow-up chest radiograph. COMPARISON: 12/09/2019 FINDINGS: Cardiac silhouette:Stable sternotomy wires and upper normal cardiac silhouette Aorta: Atherosclerosis Pulmonary vessels: Normal Costophrenic angles: Interval left-sided pleural effusion LUNGS: Stable parenchymal opacification the right lung base. Interval opacification of the left lung base. Pneumothorax: None Osseous abnormalities: None IMPRESSION: 1. Worsening pleural and parenchymal changes in the left lung base. Persistent interstitial and alveo lar opacities in the right lung base. 2. Correlate for heart failure versus multi lobar pneumonia.
--- NOTE | 2019-12-14 17:06 | PRG ---
DATE OF SERVICE: 12/14/2019 SUBJECTIVE: Ms. Norris is disoriented, not cooperating with exam. OBJECTIVE: VITAL SIGNS: T-max 100.2 yesterday at 3:00 p.m. She is now 99.3, BP 140/55, pulse 86, respirations 16 to 20, O2 saturations ranging from 92% to 94%. GENERAL: She grimaces her eyes, but denies any pain. LUNGS: Clear to auscultation and percussion. HEART: S1, S2 regular rate. ABDOMEN: The patient was not very cooperative with the exam. It did not seem to there be any guarding when I palpated it. EXTREMITIES: She seems to be able to move extremities. LABORATORY DATA: White cell count 4.7, hemoglobin 10.0, platelets 214 with 43% neutrophils, 2% bands, 17% monocytes. D-dimer is 2.25 and ferritin is 354 and a CRP 1.5, which is improving. COVID was negative as of yesterday. ASSESSMENT AND DISCUSSION: Alzheimer's dementia, cardiomyopathy, staghorn calculus of right kidney, cholelithiasis with evidence of inflammatory changes, transient obstruction with resolution on antimicrobial therapy. COVID has been ruled out, I think she is not a high pretest likelihood for it, so I believe the posttest likelihood is less than 5%. She had a chest x-ray on December 08, which showed some infiltrates on the right side and that needs to be repeated. Job ID: [id number]
[2019-12-14] MEDS: Enoxaparin Sodium 40 MG/0.4 ML SYRINGE SC SCH (20:23)
[2019-12-14] MEDS: Mirtazapine 15 MG TAB PO SCH (20:26)
[2019-12-14] MEDS: Amoxicillin/Potassium Clav 600 mg/5 ml Oral Suspension PO SCH (20:57)
[2019-12-15 05:40] LABS: Anion Gap 12 mmol/L (10-20); BUN (Urea Nitrogen) 12 mg/dL (9.8-20.1); Band 1 % (5-11); Calc. Creatinine Clearance 51 mL/min (70-130); Calcium 8.6 mg/dL (7.8-10.44); Carbon Dioxide 22 mmol/L (23-31); Chloride 109 mmol/L (98-107); Eosinophils 2 % (0-10); Estimated GFR-MDRD 73; Glucose 95 mg/dL (83-110); Hemoglobin 10.7 g/dL (12.0-16.0); Lymphocytes 22 % (21-51); MDiff Complete? YES; Mean Corpuscular HGB CONC 34.4 g/dL (32.0-36.0); Mean Corpuscular Hemoglobin 30.4 pg (27.0-31.0); Mean Corpuscular Volume 88.3 fL (78.0-98.0); Mean Platelet Volume 8.5 fL (7.4-10.4); Monocytes 11 % (0-10); Neutrophil 64 % (42-75); Platelet Count 187 thou/uL (130-400); Platelet Morphology Comment Appears Adequate; Potassium 3.4 mmol/L (3.5-5.1); RBC Distribution Width 13.5 % (11.5-14.5); RBC Morphology Normal; Red Blood Cell (RBC) Count 3.52 mill/uL (4.20-5.40); Sodium 140 mmol/L (136-145)
[2019-12-15] MEDS: hydrALAZINE 25 MG TAB PO SCH ×3 (08:27→20:10)
[2019-12-15] MEDS: Magnesium Chloride 64 MG TAB PO SCH ×2 (08:28→20:09)
[2019-12-15] MEDS: Amoxicillin/Potassium Clav 600 mg/5 ml Oral Suspension PO SCH ×2 (08:28→20:12)
[2019-12-15] MEDS: Metoprolol Tartrate 50 MG TAB PO SCH ×2 (08:28→20:11)
[2019-12-15] MEDS: Amlodipine 5 MG TAB PO SCH ×2 (08:28→20:16)
[2019-12-15] MEDS: guaiFENesin ER 600 MG TAB PO SCH ×2 (08:28→20:11)
[2019-12-15] MEDS: Saccharomyces boulardii 250 MG CAP PO SCH ×2 (08:28→20:10)
--- NOTE | 2019-12-15 11:11 | PDOC.HOSPP ---
- Subjective Encounter Date: 12/15/19 Encounter Time: 15:00 Subjective: Patient seen and examined for Sepsis. Doing well. Mentation improving. No new complaints. No overnight events - Objective Vital Signs & Weight: Vital Signs (12 hours) Temp Pulse Resp BP BP Pulse Ox 12/15/19 08:28 90 168/74 H 12/15/19 08:27 90 168/74 H 12/15/19 08:00 94 L 12/15/19 07:48 98.5 F 90 16 154/76 H 93 L Weight Admit Weight 133 lb Weight 133 lb 11.2 oz I&O: 12/14/19 12/15/19 12/16/19 06:59 06:59 06:59 Intake Total 1550 Output Total 1700 1500 Balance -150 -1500 Result Diagrams: 12/15/19 05:11 12/15/19 05:11 Radiology Reviewed by me: Yes (CXR - worsening) Hospitalist ROS - Review of Systems Respiratory: denies: cough, dry, shortness of breath, hemoptysis, SOB with excertion, pleuritic pain, sputum, wheezing, other Cardiovascular: denies: chest pain, palpitations, orthopnea, paroxysmal noc. dyspnea, edema, light headedness, other Gastrointestinal: denies: nausea, vomiting, abdominal pain, diarrhea, constipation, melena, hematochezia, other - Medication Medications: Active Medications Generic Name Dose Route Start Last Admin Trade Name Freq PRN Reason Stop Dose Admin Acetaminophen 650 mg 12/01/19 18:30 12/14/19 15:57 Tylenol PO 650 mg Q4H PRN Administration Headache/Fever/Mild Pain (1-3) Amlodipine Besylate 5 mg 12/03/19 21:00 12/15/19 08:28 Norvasc PO 5 mg BID GUIDO Administration Amoxicillin/Clavulanate Potassium 600 mg 12/14/19 21:00 12/15/19 08:28 Augmentin 600mg/5ml Oral Susp PO 600 mg BID GUIDO Administration Clonidine 0.1 mg 12/03/19 16:00 12/10/19 10:18 Zbhruqsf-Kts-7 Patch TD 0.1 mg Q7DAYS GUIDO Administration Enoxaparin Sodium 40 mg 12/13/19 21:00 12/14/19 20:23 Lovenox SC 40 mg 2100 GUIDO Administration Guaifenesin 600 mg 12/11/19 21:00 12/15/19 08:28 Mucinex PO 600 mg Q12HR GUIDO Administration Hydralazine HCl 75 mg 12/04/19 21:00 12/15/19 08:27 Apresoline PO 75 mg TID GUIDO Administration Magnesium Chloride 64 mg 12/05/19 21:00 12/15/19 08:28 Slow-Mag PO 64 mg BID GUIDO Administration Metoprolol Tartrate 75 mg 12/04/19 21:00 12/15/19 08:28 Lopressor PO 75 mg BID GUIDO Administration Mirtazapine 15 mg 12/14/19 21:00 12/14/19 20:26 Remeron PO 15 mg HS GUIDO Administration Quetiapine Fumarate 25 mg 12/02/19 21:00 12/15/19 08:28 Seroquel PO 25 mg BID GUIDO Administration Saccharomyces Boulardii 250 mg 12/08/19 21:00 12/15/19 08:28 Florastor PO 250 mg BID GUIDO Administration Sodium Chloride 10 ml 12/01/19 21:00 12/15/19 08:29 Flush - Normal Saline IVF 10 ml Q12HR GUIDO Administration - Exam General Appearance: NAD Heart: RRR, no gallops Respiratory: no wheezes, no ronchi Gastrointestinal: non-tender, non-distended, normal bowel sounds Extremities: no cyanosis Neurological: no new deficit Hosp A/P - Plan DVT proph w/SCDs Sepsis due to Klebsiella UTI/Gallstone pancreatitis with suspected acute cholecystitis/?cholangitis -confusion improving -completed IV Meropenem Toxic Metabolic Encephalopathy -multifactorial -improving Aspiration Pneumonia causing Sepsis -s/p Meropenem -diagnosed on 12/08 -on Augmentin RAISSA/Hypokalemia/Hypomagnesemia/Metabolic acidosis -renal function improving -no obstructive uropathy on CT abd -home Lasix/Lisinopril on hold HTN -controlled -on PO Metoprolol/Hydralazine/Clonidine patch Moderate PEM -has poor appetite -cont Nepro GERD -on PPI Dementia/Anxiety/Depression -on Seroquel -Remeron on hold Chronic anemia suspected due to nutritional deficiency. -no bleeding -stable Elevated LFTs/Cholelithiasis -improving Thrombocytopenia -resolved Swallow dysfunction - on modified diet PLAN: Rt wrist XR - reviewed - No acute findings Cont Augmentin Cont other meds as above Will d/w ID
[2019-12-15] MEDS: Acetaminophen 325 MG TAB PO PRN ×2 (11:14→17:30)
[2019-12-15] MEDS ORDERED: Furosemide 20 MG TAB PO SCH (11:15)
--- NOTE | 2019-12-15 12:03 | RAD ---
RIGHT WRIST 3 VIEWS: HISTORY: Wrist pain and swelling. FINDINGS: Lungs show mild osteopenia. Carpals appear normally aligned. Mild degenerative changes in the inter carpal joints. No fracture identified. IMPRESSION: No acute finding. POS: AGW
[2019-12-15] MEDS: Enoxaparin Sodium 40 MG/0.4 ML SYRINGE SC SCH (20:12)
[2019-12-15] MEDS: Mirtazapine 15 MG TAB PO SCH (20:15)
[2019-12-16] MEDS: Metoprolol Tartrate 50 MG TAB PO SCH ×2 (08:45→22:15)
[2019-12-16] MEDS: hydrALAZINE 25 MG TAB PO SCH ×3 (08:45→22:17)
[2019-12-16] MEDS: guaiFENesin ER 600 MG TAB PO SCH ×2 (08:46→22:15)
[2019-12-16] MEDS: Amlodipine 5 MG TAB PO SCH ×2 (08:46→22:17)
[2019-12-16] MEDS: Saccharomyces boulardii 250 MG CAP PO SCH ×2 (08:46→22:16)
[2019-12-16] MEDS: Magnesium Chloride 64 MG TAB PO SCH ×2 (08:47→22:14)
[2019-12-16] MEDS: Amoxicillin/Potassium Clav 600 mg/5 ml Oral Suspension PO SCH ×2 (10:52→22:22)
--- NOTE | 2019-12-16 18:29 | PDOC.HOSPP ---
- Subjective Encounter Date: 12/16/19 Encounter Time: 16:00 Subjective: Patient seen and examined for Sepsis. Feeling better. No new complaints. No overnight events - Objective Vital Signs & Weight: Vital Signs (12 hours) Temp Pulse Resp BP BP Pulse Ox 12/16/19 16:37 92 168/79 H 148/70 H 12/16/19 12:25 150/67 H 12/16/19 08:46 92 168/79 H 12/16/19 08:45 92 168/79 H 12/16/19 08:00 94 L 12/16/19 07:18 98.1 F 92 20 168/79 H 92 L Weight Admit Weight 133 lb Weight 133 lb 11.2 oz I&O: 12/15/19 12/16/19 12/17/19 06:59 06:59 06:59 Output Total 1500 1350 600 Balance -1500 -1350 -600 Result Diagrams: 12/15/19 05:11 12/15/19 05:11 Hospitalist ROS - Review of Systems Respiratory: denies: cough, dry, shortness of breath, hemoptysis, SOB with excertion, pleuritic pain, sputum, wheezing, other Cardiovascular: denies: chest pain, palpitations, orthopnea, paroxysmal noc. dyspnea, edema, light headedness, other - Medication Medications: Active Medications Generic Name Dose Route Start Last Admin Trade Name Freq PRN Reason Stop Dose Admin Acetaminophen 650 mg 12/01/19 18:30 12/15/19 17:30 Tylenol PO 650 mg Q4H PRN Administration Headache/Fever/Mild Pain (1-3) Amlodipine Besylate 5 mg 12/03/19 21:00 12/16/19 08:46 Norvasc PO 5 mg BID GUIDO Administration Amoxicillin/Clavulanate Potassium 600 mg 12/14/19 21:00 12/16/19 10:52 Augmentin 600mg/5ml Oral Susp PO 600 mg BID GUIDO Administration Clonidine 0.1 mg 12/03/19 16:00 12/10/19 10:18 Vrakahmk-Ttk-1 Patch TD 0.1 mg Q7DAYS GUIDO Administration Enoxaparin Sodium 40 mg 12/13/19 21:00 12/15/19 20:12 Lovenox SC 40 mg 2100 GUIDO Administration Guaifenesin 600 mg 12/11/19 21:00 12/16/19 08:46 Mucinex PO 600 mg Q12HR GUIDO Administration Hydralazine HCl 75 mg 12/04/19 21:00 12/16/19 16:37 Apresoline PO Not Given TID GUIDO Magnesium Chloride 64 mg 12/05/19 21:00 12/16/19 08:47 Slow-Mag PO 64 mg BID GUIDO Administration Metoprolol Tartrate 75 mg 12/04/19 21:00 12/16/19 08:45 Lopressor PO 75 mg BID GUIDO Administration Mirtazapine 15 mg 12/14/19 21:00 12/15/19 20:15 Remeron PO 15 mg HS GUIDO Administration Quetiapine Fumarate 25 mg 12/02/19 21:00 12/16/19 08:46 Seroquel PO 25 mg BID GUIDO Administration Saccharomyces Boulardii 250 mg 12/08/19 21:00 12/16/19 08:46 Florastor PO 250 mg BID GUIDO Administration Sodium Chloride 10 ml 12/01/19 21:00 12/16/19 08:47 Flush - Normal Saline IVF Not Given Q12HR GUIDO - Exam General Appearance: NAD Heart: RRR, no gallops Respiratory: no wheezes, no ronchi Gastrointestinal: non-tender, non-distended, normal bowel sounds Extremities: no cyanosis, no clubbing Extremities - other findings: Rt wrist swelling - no erythema Neurological: no new deficit Hosp A/P - Plan DVT proph w/SCDs Sepsis due to Klebsiella UTI/Gallstone pancreatitis with suspected acute cholecystitis/?cholangitis -confusion improving -completed IV Meropenem Toxic Metabolic Encephalopathy -multifactorial -improving Aspiration Pneumonia causing Sepsis -s/p Meropenem -diagnosed on 12/08 -on Augmentin RAISSA/Hypokalemia/Hypomagnesemia/Metabolic acidosis -renal function improving -no obstructive uropathy on CT abd -home Lasix/Lisinopril on hold HTN -controlled -on PO Metoprolol/Hydralazine/Clonidine patch Moderate PEM -has poor appetite -cont Nepro GERD -on PPI Dementia/Anxiety/Depression -on Seroquel -Remeron on hold Chronic anemia suspected due to nutritional deficiency. -no bleeding -stable Elevated LFTs/Cholelithiasis -improving Thrombocytopenia -resolved Swallow dysfunction - on modified diet PLAN: Cont Augmentin Cont other meds as above I d/w ID - Prob ok to dc in AM
[2019-12-16] MEDS: Enoxaparin Sodium 40 MG/0.4 ML SYRINGE SC SCH (22:15)
[2019-12-16] MEDS: Mirtazapine 15 MG TAB PO SCH (22:17)
[2019-12-17 07:20] VITALS: BP 142/69; TEMP 99.1
[2019-12-17] MEDS: hydrALAZINE 25 MG TAB PO SCH (07:35)
[2019-12-17] MEDS: guaiFENesin ER 600 MG TAB PO SCH (07:35)
[2019-12-17] MEDS: Magnesium Chloride 64 MG TAB PO SCH (07:35)
[2019-12-17] MEDS: Metoprolol Tartrate 50 MG TAB PO SCH (07:36)
[2019-12-17] MEDS: Saccharomyces boulardii 250 MG CAP PO SCH (07:36)
[2019-12-17] MEDS: Amlodipine 5 MG TAB PO SCH (07:37)
[2019-12-17] MEDS: cloNIDine 0.1mg/24 Hour PATCH TD SCH (09:34)
[2019-12-17] MEDS: Amoxicillin/Potassium Clav 600 mg/5 ml Oral Suspension PO SCH (09:35)
--- NOTE | 2019-12-18 12:32 | DIS ---
DATE OF ADMISSION: 12/01/2019 DATE OF DISCHARGE: 12/17/2019 DISCHARGE DISPOSITION: [facility]. FOLLOWUP: Follow up with Dr. Dunham at the nursing facility. Follow up with Dr. Potts and Infectious Disease in 2 weeks. CODE STATUS: Do not resuscitate. The patient was seen and examined on the day of discharge. Denies any new complaints. DISCHARGE MEDICATIONS: 1. Augmentin 600 mg b.i.d. for 1 week. 2. Amlodipine 5 mg b.i.d. 3. Clonidine patch 0.1 mg every 7 days. 4. Hydralazine 75 mg 3 times a day. 5. Lopressor 75 mg b.i.d. 6. Remeron 15 mg at bedtime. 7. Florastor 250 mg daily. 8. Mucinex for 1 week. All other home medications were left unchanged. BRIEF HOSPITAL COURSE: The patient is an 89-year-old female, [facility] resident, presented to the hospital on November,, with generalized weakness along with poor oral intake. She was found to have abnormal LFTs with lipase of 874. CT scan of the abdomen and pelvis was consistent with possible acute cholecystitis. The right upper quadrant ultrasound was also consistent with acute cholecystitis along with dilated common bile duct with cholelithiasis. The patient was evaluated by general surgeon who recommended a HIDA scan, which came back negative for acute cholecystitis. She was medically managed with IV antibiotics. The antibiotics have been switched to oral. The patient was also found to have significant acute kidney injury with maximum creatinine of 5.91, that improved with IV hydration. Her creatinine at discharge was 0.75. The patient was evaluated by Nephrology. Obstructive uropathy was ruled out. The patient was also found to have aspiration pneumonia. Her diet has been modified per Speech Therapy recommendation. The patient also had significant encephalopathy on and off secondary to multiple issues. Her mentation has significantly improved. INPATIENT COFOUNDER: Nephrology service, Infectious Disease service, and General Surgery. FINAL DIAGNOSES: 1. Sepsis due to Klebsiella urinary tract infection along with gallstone pancreatitis with suspected acute cholecystitis present on admission. 2. Toxic metabolic encephalopathy. 3. Aspiration pneumonia. 4. Acute kidney injury. 5. Metabolic acidosis. 6. Hypokalemia. 7. Hypomagnesemia. 8. Hypertension. 9. Moderate protein energy malnutrition. 10. Gastroesophageal reflux disease. 11. Dementia. 12. Anxiety with depression. 13. Chronic anemia, suspected due to nutritional deficiency. 14. Elevated liver function tests with cholelithiasis. 15. Thrombocytopenia. 16. Swallow dysfunction. TIME SPENT: Time coordinating the discharge of this patient was 38 minutes. Job ID: [id number]
== END 2019-12-17 14:27 | DRG 871 ==
LOC: ERS 16:44 → T4-A 17:58
PROVIDERS: ADMIT Internal Medicine; ATTEND Internal Medicine
DX: A41.59 Other Gram-negative sepsis (principal); K85.10 Biliary acute pancreatitis without necrosis or infection; G92 Toxic encephalopathy; Z66 Do not resuscitate; Z20.828 Contact with and (suspected) exposure to other viral communicable diseases; J69.0 Pneumonitis due to inhalation of food and vomit; N17.0 Acute kidney failure with tubular necrosis; N39.0 Urinary tract infection, site not specified; K80.00 Calculus of gallbladder with acute cholecystitis without obstruction; E87.2 Acidosis; E44.0 Moderate protein-calorie malnutrition; E87.6 Hypokalemia; E83.42 Hypomagnesemia; K21.9 Gastro-esophageal reflux disease without esophagitis; F41.8 Other specified anxiety disorders; D53.9 Nutritional anemia, unspecified; D69.6 Thrombocytopenia, unspecified; R13.10 Dysphagia, unspecified; F42.9 Obsessive-compulsive disorder, unspecified; H40.9 Unspecified glaucoma; I50.9 Heart failure, unspecified; H26.9 Unspecified cataract; E86.0 Dehydration; Z96.649 Presence of unspecified artificial hip joint; R65.20 Severe sepsis without septic shock; G30.9 Alzheimer's disease, unspecified; F02.80 Dementia in other diseases classified elsewhere, unspecified severity, without behavioral disturbance, psychotic disturbance, mood disturbance, and anxiety; I25.10 Atherosclerotic heart disease of native coronary artery without angina pectoris; I11.0 Hypertensive heart disease with heart failure; N20.0 Calculus of kidney; Z68.20 Body mass index [BMI] 20.0-20.9, adult; Z79.899 Other long term (current) drug therapy
CPT/HCPCS: 36415; 71045; 76705; 78226; 80048; 80053; 80076; 81001; 82728; 83605; 83690; 83735; 83880; 84100; 85007; 85025; 85027; 85049; 85300; 85362; 85379; 85384; 85610; 85730; 86140; 87040; 87077; 87086; 87186; 87635; 96361; 96365; A9537; J0360; J1644; J1650; J2060; J2185; J2543; J3475; J3480; J3490; J7050; J7070; P9047; U0003

== ENCOUNTER 2020-07-15 13:46 | Inpatient (IN) | payer MEDICARE, MEDICAID, OTHER ==
[2020-07-15 14:28] LABS: #Eosinphils 0.1 thou/uL (0.0-0.7); #Lymphocytes 0.8 thou/uL (1.20-3.40); #Monocytes 0.4 thou/uL (0.11-0.59); #Neutrophils 1.7 thou/uL (1.40-6.50); %Basophils 0.1 % (0.0-1.0); %Eosinophils 2.6 % (0.0-10.0); %Lymphocytes 27.3 % (21.0-51.0); %Monocytes 13.2 % (0.0-10.0); %Neutrophils 56.8 % (42.0-75.0); Hemoglobin 10.5 g/dL (12.0-16.0); Mean Corpuscular HGB CONC 30.5 g/dL (32.0-36.0); Mean Corpuscular Hemoglobin 27.9 pg (27.0-31.0); Mean Corpuscular Volume 91.4 fL (78.0-98.0); RBC Distribution Width 16.9 % (11.5-14.5); Red Blood Cell (RBC) Count 3.76 mill/uL (4.20-5.40); White Blood Cell (WBC) Count 3.1 thou/uL (4.8-10.8)
[2020-07-15] MEDS ORDERED: Cefepime 2 GM VIAL ONE (14:40)
[2020-07-15 14:48] LABS: ALT (SGPT) 30 U/L (8-55); AST (SGOT) 24 U/L (5-34); Albumin 3.6 g/dL (3.4-4.8); Alkaline Phosphatase 161 U/L (40-110); Anion Gap 10 mmol/L (10-20); BUN (Urea Nitrogen) 51 mg/dL (9.8-20.1); Bilirubin, Total 0.4 mg/dL (0.2-1.2); Calc. Creatinine Clearance 0 mL/min (70-130); Calcium 8.9 mg/dL (7.8-10.44); Carbon Dioxide 24 mmol/L (23-31); Chloride 116 mmol/L (98-107); Globulin 2.8 g/dL (2.4-3.5); Glucose 92 mg/dL (83-110); Potassium 5.2 mmol/L (3.5-5.1); Protein, Total 6.4 g/dL (5.8-8.1); Sodium 145 mmol/L (136-145)
[2020-07-15 14:51] LABS: Clarity Hazy (Clear); Specific Gravity, Urine 1.017 (1.002-1.036)
[2020-07-15 14:52] LABS: Anisocytosis SLIGHT = 6-15 cells (100X) (0-5/hpf); Large Platelets SLIGHT; MDiff Complete? YES; Mean Platelet Volume 11.5 fL (7.4-10.4); Ovalocytes SLIGHT = 2-5 cells (100X) (0-1/hpf); Platelet Count 58 thou/uL (130-400); Platelet Morphology Comment Appears Decreased; Polychromasia SLIGHT = 2-3 cells (100X) (0-2/hpf)
[2020-07-15 14:52] LABS: Bilirubin Negative (Negative); Blood, Urine Negative (Negative); Glucose, Urine (Dipstick) Negative (Negative); Ketone, Urine Negative (Negative); Leukocyte 500 Leu/uL (Negative); Nitrite Negative (Negative); Protein, Urine (Dipstick) 50 mg/dL (Neg-Trace); Urobilinogen 0.2 mg/dL (Less than 2); pH, Urine 5.5 (5.0-9.0)
[2020-07-15 15:01] LABS: Bacteria/HPF 4+ HPF (None Seen); RBC/HPF 0-3 HPF (0-3); Squamous Epithelial None Seen HPF (0-3); WBC/HPF Greater Than 50 HPF (0-3)
[2020-07-15] MEDS ORDERED: Vancomycin 1 GM/200 ML BAG ONE (16:34)
[2020-07-15] MEDS ORDERED: Ondansetron PF 4 MG/2 ML Vial IVP PRN (17:12)
[2020-07-15] MEDS ORDERED: Acetaminophen 650 MG Suppository PR PRN (17:12)
[2020-07-15] MEDS ORDERED: Acetaminophen 325 MG TAB PO PRN (17:12)
[2020-07-15] MEDS ORDERED: Ondansetron ODT 4 MG TAB PO PRN (17:12)
[2020-07-15] MEDS ORDERED: Sodium Chloride 0.9% 1,000 ML IV SCH (17:15)
[2020-07-15 17:22] LABS: SARS-CoV-2 NAA Rapid Test Not Detected (NotDetected)
[2020-07-15 19:15] LABS: Anisocytosis SLIGHT = 6-15 cells (100X) (0-5/hpf); Band 2 % (5-11); Hemoglobin 9.4 g/dL (12.0-16.0); Large Platelets SLIGHT; Lymphocytes 22 % (21-51); MDiff Complete? YES; Mean Corpuscular HGB CONC 30.7 g/dL (32.0-36.0); Mean Corpuscular Hemoglobin 28.2 pg (27.0-31.0); Mean Corpuscular Volume 91.7 fL (78.0-98.0); Mean Platelet Volume 11.4 fL (7.4-10.4); Monocytes 5 % (0-10); Neutrophil 69 % (42-75); Nucleated RBC 1 % (0); Ovalocytes SLIGHT = 2-5 cells (100X) (0-1/hpf); Platelet Count 52 thou/uL (130-400); Platelet Morphology Comment Appears Decreased; Polychromasia SLIGHT = 2-3 cells (100X) (0-2/hpf); RBC Distribution Width 16.9 % (11.5-14.5); Reactive Lymphocytes 2 % (0-10); Red Blood Cell (RBC) Count 3.32 mill/uL (4.20-5.40); White Blood Cell (WBC) Count 2.7 thou/uL (4.8-10.8)
[2020-07-15 22:03] LABS: Troponin I 0.018 ng/mL (< 0.028)
[2020-07-15 23:58] VITALS: BMI 23.9
[2020-07-16 03:45] LABS: Band 2 % (5-11); Eosinophils 2 % (0-10); Lymphocytes 14 % (21-51); MDiff Complete? YES; Mean Corpuscular Hemoglobin 28.4 pg (27.0-31.0); Mean Corpuscular Volume 91.4 fL (78.0-98.0); Mean Platelet Volume 11.4 fL (7.4-10.4); Monocytes 9 % (0-10); Neutrophil 72 % (42-75); Platelet Count 64 thou/uL (130-400); Platelet Morphology Comment Appears Adequate; RBC Distribution Width 16.8 % (11.5-14.5); Red Blood Cell (RBC) Count 3.52 mill/uL (4.20-5.40); White Blood Cell (WBC) Count 4.4 thou/uL (4.8-10.8)
[2020-07-16 04:03] LABS: ALT (SGPT) 27 U/L (8-55); AST (SGOT) 26 U/L (5-34); Albumin 3.1 g/dL (3.4-4.8); Alkaline Phosphatase 153 U/L (40-110); Anion Gap 13 mmol/L (10-20); BUN (Urea Nitrogen) 46 mg/dL (9.8-20.1); Bilirubin, Total 0.3 mg/dL (0.2-1.2); Calc. Creatinine Clearance 31 mL/min (70-130); Carbon Dioxide 15 mmol/L (23-31); Chloride 120 mmol/L (98-107); Globulin 2.9 g/dL (2.4-3.5); Glucose 74 mg/dL (83-110); Potassium 5.2 mmol/L (3.5-5.1); Sodium 143 mmol/L (136-145)
[2020-07-16] MEDS ORDERED: FLU VACC QS2020-21(65YR UP)/PF 240 MCG/0.7 ML SYRINGE IM ONE (09:00)
[2020-07-16] MEDS ORDERED: Enoxaparin Sodium 40 MG/0.4 ML SYRINGE SC SCH (09:00)
[2020-07-16] MEDS: Cefepime 1 GM in Sodium Chloride 0.9% 100 ML IVPB SCH ×2 (09:30→20:08)
[2020-07-16] MEDS: Dextrose 5 %-0.45 % NaCl 1,000 ML IV SCH ×2 (09:37→18:00)
[2020-07-16] MEDS: hydrALAZINE 25 MG TAB PO SCH ×2 (15:10→20:10)
[2020-07-16] MEDS: Metoprolol Tartrate 50 MG TAB PO SCH (20:09)
[2020-07-16] MEDS: Ferrous Sulfate 325 MG TAB PO SCH (20:09)
[2020-07-16] MEDS: Amlodipine 5 MG TAB PO SCH (23:09)
[2020-07-17] MEDS: Dextrose 5 %-0.45 % NaCl 1,000 ML IV SCH ×2 (02:48→10:40)
[2020-07-17] MEDS: Metoprolol Tartrate 50 MG TAB PO SCH (08:32)
[2020-07-17] MEDS: Cefepime 1 GM in Sodium Chloride 0.9% 100 ML IVPB SCH (08:32)
[2020-07-17] MEDS: Ferrous Sulfate 325 MG TAB PO SCH (08:33)
[2020-07-17] MEDS: Amlodipine 5 MG TAB PO SCH (08:34)
[2020-07-17] MEDS: hydrALAZINE 25 MG TAB PO SCH ×2 (08:34→15:03)
[2020-07-17] MEDS ORDERED: Cholecalciferol 1,000 UNITS (25 MCG) TAB PO SCH (09:00)
[2020-07-17] MEDS ORDERED: Calcium Polycarbophil 625 MG TAB PO SCH (09:00)
[2020-07-17] MEDS ORDERED: Saccharomyces boulardii 250 MG CAP PO SCH (09:00)
[2020-07-17 14:59] VITALS: BP 113/54; TEMP 98.4
[2020-07-18] MEDS ORDERED: Cefdinir 300 MG CAP PO SCH (09:00)
[2020-07-23] MEDS ORDERED: cloNIDine 0.1mg/24 Hour PATCH TD SCH (09:00)
== END 2020-07-17 17:02 | DRG 690 ==
LOC: ERS 13:46 → 2NO 20:06 → T4-B 07-16 10:59
PROVIDERS: ADMIT Internal Medicine; ATTEND Internal Medicine
DX: N30.00 Acute cystitis without hematuria (principal); N17.9 Acute kidney failure, unspecified; D61.818 Other pancytopenia; I13.0 Hypertensive heart and chronic kidney disease with heart failure and stage 1 through stage 4 chronic kidney disease, or unspecified chronic kidney disease; Z20.822 Contact with and (suspected) exposure to COVID-19; Z66 Do not resuscitate; B96.1 Klebsiella pneumoniae [K. pneumoniae] as the cause of diseases classified elsewhere; E86.9 Volume depletion, unspecified; G30.9 Alzheimer's disease, unspecified; F02.80 Dementia in other diseases classified elsewhere, unspecified severity, without behavioral disturbance, psychotic disturbance, mood disturbance, and anxiety; H70.90 Unspecified mastoiditis, unspecified ear; E87.5 Hyperkalemia; K21.9 Gastro-esophageal reflux disease without esophagitis; I50.9 Heart failure, unspecified; D50.9 Iron deficiency anemia, unspecified; R63.0 Anorexia; F41.9 Anxiety disorder, unspecified; F32.9 Major depressive disorder, single episode, unspecified; G47.33 Obstructive sleep apnea (adult) (pediatric); N18.30 Chronic kidney disease, stage 3 unspecified; N20.0 Calculus of kidney; Z79.51 Long term (current) use of inhaled steroids; Z79.899 Other long term (current) drug therapy; Z90.710 Acquired absence of both cervix and uterus; Z98.890 Other specified postprocedural states; Z68.23 Body mass index [BMI] 23.0-23.9, adult
CPT/HCPCS: 0240U; 36415; 51702; 70450; 71045; 80053; 81003; 81015; 82140; 83605; 84443; 84484; 85007; 85025; 85027; 85060; 87040; 87077; 87086; 87186; 93005; 96365; 96366; 96368; J0692; J1956; J3370; J3490

== ENCOUNTER 2020-07-21 16:29 | Inpatient (IN) | payer MEDICARE, MEDICAID ==
[2020-07-21] MEDS ORDERED: Calcium Chloride 1 GM/10 ML Abboject SYRINGE ONE (16:48)
[2020-07-21 18:16] LABS: Bacteria/HPF 4+ HPF (None Seen); Bilirubin Negative (Negative); Blood, Urine 1+ (Negative); Clarity Turbid (Clear); Glucose, Urine (Dipstick) Normal (Negative); Ketone, Urine Trace mg/dL (Negative); Leukocyte 500 Leu/uL (Negative); Nitrite Negative (Negative); Protein, Urine (Dipstick) 30 mg/dL (Neg-Trace); Specific Gravity, Urine 1.016 (1.002-1.036); Squamous Epithelial 0-3 HPF (0-3); Urobilinogen Normal mg/dL (Less than 2); WBC/HPF 21-50 HPF (0-3)
[2020-07-21] MEDS ORDERED: DOBUTamine 500 mg/250 ml 250 ML ONE (19:06)
--- NOTE | 2020-07-21 22:03 | PDOC.HHP ---
Hospitalist YAMILETH LANDIN History of Present Illness: This is an 89-year-old female patient resident of a detention with a history of hypertension, dementia, anemia and heart failure who was transferred from [place] on account of hypotension hypothermia and bradycardia. Patient was noted to be altered in the detention with worsening parameters as above. She was taken by EMS to [place] where at presentation was noted to be hypotensive bradycardic and hypothermic. She was evaluated and it was noted that she was DNR/DNI however her daughter wanted all medical management possible thought she was transferred here for higher level care. She was only recently discharged on 07/17/2020 after being managed for urinary tr act infection with Klebsiella in the setting of nephrolithiasis. She was initially started on cefepime and switch to Omnicef prior to discharge. At presentation at [facility], labs showed WBC of 4.8, hemoglobin 10.8, platelet 41. Chemistry showed sodium of 152, potassium of 5.2 creatinine of 1.1, lactate of 0.6, troponin of 0.02, BNP of 380. Urine showed increased leukocytes at 500 with WBCs suggestive of incompletely treated UTI CT head was persistent hypodensity in left cerebellar hemisphere which he notes may correlate with an evolving infarct. Also noted opacification of the mastoid air cells to correlate for otomastoiditis. Chest x-ray revealed pulmonary vascular congestion with left pleural effusion. She was started on Levophed for pressor, vancomycin and cefepime also received atropine and 1 L normal saline prior to transfer On arrival here discussion with the daughter notes that she did not want any chest compression and would remain DNR however would want full medical treat ment. On my initial assessment patient was becoming more bradycardic and hypotensive with BP not reading. I talked with daughter who although initially seemed to have not wanted a central line changed her mind and wanted a central line so additional pressures could be used. A central line was thus placed however her blood pressures seem to improve on just Levophed. Patient herself was very minimally communicative and will not give me any history by self. Allergies/Adverse Reactions: Allergy/AdvReac Type Severity Reaction Status Date / Time No Known Drug Allergies Allergy Verified 07/22/20 00:02 Home Medications: Medication Instructions Recorded Confirmed Type Acetaminophen 650 mg PO Q6HR PRN 12/02/19 07/16/20 History Aluminum & Magnesium Hydroxide 20 ml PO Q8HR PRN 12/02/19 07/16/20 History [Maalox] Cholecalciferol (Vitamin D3) 1,000 unit PO DAILY 12/02/19 07/16/20 History [Vitamin D3] Ferrous Sulfate [Feosol] 325 mg PO BID 12/02/19 07/16/20 History Fluticasone Propionate [Flonase 1 spray EA NARE DAILY 12/02/19 07/16/20 History Nasal [place]] Ipratropium/Albuterol Sulfate 3 ml NEB Q6HR PRN 12/02/19 07/16/20 History [DuoNeb] QUEtiapine Fumarate [SEROquel] 50 mg PO BID 12/02/19 07/16/20 History guaiFENesin/Dextromethorphan 10 ml PO Q6HR PRN 12/02/19 07/16/20 History [Tussin Dm 400-20 mg/20 ml Liq] Amlodipine [Norvasc] 5 mg PO BID tab 12/17/19 07/16/20 Rx Magnesium Chloride [Slow-Mag] 64 mg PO BID tab 12/17/19 07/16/20 Rx Metoprolol Tartrate [Lopressor] 75 mg PO BID tab 12/17/19 07/16/20 Rx Saccharomyces boulardii [Florastor] 250 mg PO DAILY cap 12/17/19 07/16/20 Rx Calcium Polycarbophil [Fiber] 625 mg PO DAILY 07/16/20 07/16/20 History Mirtazapine [Remeron] 2 tab PO HS 07/16/20 07/16/20 History cloNIDine [Mhwnbknq-MTY-3 Patch] 0.1 mg TD Q7DAYS 07/16/20 07/16/20 History hydrALAZINE [Apresoline] 75 mg PO TID 07/16/20 07/16/20 History Cefdinir [Omnicef] 600 mg PO DAILY #7 cap 07/17/20 Rx Past History: PMHx: PSHx: FHx: Social: Hospitalist HPI ROS ROS unobtainable: due to mental status Hospitalist Exam General - other findings: Awake however not communicative Eye: anicteric sclera Heart: RRR, no murmur, no gallops, no rubs Respiratory - other findings: Coarse breath sounds bilaterally. Gastrointestinal: soft, normal bowel sounds, distended (Slight) Extremities: no cyanosis, no clubbing, no edema Neurological - other findings: Awake and move all limbs spontaneously Psychiatric - other findings: Patient awake but not oriented Hospitalist Results Result Diagrams: 07/21/20 22:50 Lab results: Laboratory Last Values Urine Color Yellow (Yellow) 07/21/20 16:25 Urine Clarity Turbid (Clear) A 07/21/20 16:25 Urine pH 5.0 (5.0-9.0) 07/21/20 16:25 Ur Specific [place] 1.016 (1.002-1.036) 07/21/20 16:25 Urine Protein 30 mg/dL (Neg-Trace) A 07/21/20 16:25 Urine Glucose (UA) Normal mg/dL (Negative) 07/21/20 16:25 Urine Ketones Trace mg/dL (Negative) A 07/21/20 16:25 Urine Blood 1+ (Negative) A 07/21/20 16:25 Urine Nitrite Negative (Negative) 07/21/20 16:25 Urine Bilirubin Negative (Negative) 07/21/20 16:25 Urine Urobilinogen Normal mg/dL (Less than 2) 07/21/20 16:25 Ur Leukocyte Esterase 500 Pedro/uL (Negative) A 07/21/20 16:25 Urine RBC 4-6 HPF (0-3) A 07/21/20 16:25 Urine WBC 21-50 HPF (0-3) A 07/21/20 16:25 Ur Squamous Epith Cells 0-3 HPF (0-3) 07/21/20 16:25 Urine Bacteria 4+ HPF (None Seen) A 07/21/20 16:25 Hospitalist H&P A/P Plan: This is an 89-year-old female patient with a history of dementia, CHF recently discharged with UTI comes in again today with hypotension and bradycardia and hypothermia with altered mental status concerning for sepsis Septic shock Hypotension bradycardia hypothermia with altered mental status requiring pressor s. Source possibly urine We will continue vancomycin and cefepime Lactate not elevated. Received 1 L however no further fluids on account of lung congestion. Follow-up on blood and urine cultures Possible stroke CT head suggest possible cerebellar stroke Unclear whether this is really the case We will follow up with MRI in the morning However for now we will give her BR aspirin Neurology consult in a.m. Acute encephalopathy Etiology include sepsis/possible stroke Treat underlying conditions CHF exacerbation Patient has pulmonary congestion Given low pressures however will hold diuresis Oxygen therapy Close monitoring Acute hypoxic respiratory failure Patient currently on about 6 L with facemask. This is likely due to combination of factorssepsis/pulmonary congestion Continue current oxygen To diuresis once blood pressure stabilizes Currently stable continue monitoring. Urinary tract infection Initial Zosyn however due to thrombocytopenia changing to cefepime Hyponatremia Sodium 150 Likely hypovolemic She received 1 L in the outside hospital We will continue monitor Hyperkalemia Potassium 5.2 Repeat monitor EKG Normocytic anemia Hemoglobin 10.8 Thrombocytopenia Platelet 41 down from 64, ALT 4 days ago. Likely due to sepsis We will monitor. General poor prognosis Initial discussions were towards hospice in a.m. We will support as much as possible overnight however will discuss goals of care in the morning VT prophylaxisSCD CODE STATUSDNR
[2020-07-21] MEDS ORDERED: Sodium Chloride 0.9% 1,000 ML IV SCH ×2 (22:30)
[2020-07-21] MEDS ORDERED: Piperacillin/Tazobactam 4.5 GM in Sodium Chloride 0.9% 100 ML IVPB SCH ×2 (22:30→22:45)
[2020-07-21] MEDS ORDERED: Cefepime 2 GM in Sodium Chloride 0.9% 100 ML IVPB SCH (22:45)
[2020-07-21] MEDS ORDERED: Vancomycin 1 GM in Premix Bag 1 BAG IVPB SCH (22:45)
[2020-07-21 23:21] LABS: Anion Gap 9 mmol/L (10-20); BUN (Urea Nitrogen) 39 mg/dL (9.8-20.1); Calc. Creatinine Clearance 0 mL/min (70-130); Calcium 8.7 mg/dL (7.8-10.44); Carbon Dioxide 19 mmol/L (23-31); Glucose 136 mg/dL (83-110); Sodium 149 mmol/L (136-145)
[2020-07-21 23:26] LABS: Chloride 126 mmol/L (98-107)
[2020-07-22 00:11] LABS: SARS-CoV-2 NAA Rapid Test Not Detected (NotDetected)
[2020-07-22] MEDS ORDERED: Norepinephrine 8 MG/0.9% NS 250 ML ONE ×2 (01:08→08:25)
[2020-07-22] MEDS ORDERED: Aspirin 300 MG Suppository PR SCH (01:45)
[2020-07-22] MEDS ORDERED: Furosemide 20 MG/2 ML VIAL ONE (02:14)
[2020-07-22] MEDS ORDERED: Norepinephrine 8 MG/0.9% NS 250 ML IVPB SCH (02:15)
[2020-07-22] MEDS: Dextrose 5% in Water 1,000 ML IV SCH ×2 (02:41→07:58)
[2020-07-22 02:59] VITALS: BMI 27.4
[2020-07-22] MEDS ORDERED: Furosemide 20 MG/2 ML VIAL SLOW IVP SCH (03:00)
[2020-07-22] MEDS ORDERED: Vancomycin 1 GM/200 ML BAG ONE (03:48)
[2020-07-22] MEDS ORDERED: Cefepime 2 GM VIAL ONE (03:48)
[2020-07-22] MEDS ORDERED: Aspirin 300 MG Suppository ONE (03:48)
[2020-07-22 05:27] LABS: Anion Gap 13 mmol/L (10-20); BUN (Urea Nitrogen) 39 mg/dL (9.8-20.1); Calc. Creatinine Clearance 30 mL/min (70-130); Calcium 8.6 mg/dL (7.8-10.44); Carbon Dioxide 16 mmol/L (23-31); Chloride 125 mmol/L (98-107); Glucose 86 mg/dL (83-110); Potassium 5.2 mmol/L (3.5-5.1); Sodium 149 mmol/L (136-145)
[2020-07-22 05:40] LABS: Band 29 % (5-11); Hemoglobin 10.4 g/dL (12.0-16.0); Large Platelets SLIGHT; Lymphocytes 4 % (21-51); MDiff Complete? YES; Mean Corpuscular HGB CONC 29.3 g/dL (32.0-36.0); Mean Corpuscular Hemoglobin 27.5 pg (27.0-31.0); Mean Corpuscular Volume 93.8 fL (78.0-98.0); Mean Platelet Volume 12.3 fL (7.4-10.4); Monocytes 6 % (0-10); Neutrophil 61 % (42-75); Platelet Count 73 thou/uL (130-400); Platelet Morphology Comment Appears Decreased; RBC Distribution Width 17.6 % (11.5-14.5); Red Blood Cell (RBC) Count 3.77 mill/uL (4.20-5.40)
[2020-07-22] MEDS ORDERED: hydrALAZINE 20 MG/ML VIAL SLOW IVP PRN (07:43)
[2020-07-22] MEDS ORDERED: Loratadine 10 MG TAB PO PRN (07:43)
[2020-07-22] MEDS ORDERED: Ondansetron ODT 4 MG TAB SL PRN (07:43)
[2020-07-22] MEDS ORDERED: Sodium Chloride 0.65% Nasal 44 ML BOT EA NARE PRN (07:43)
[2020-07-22] MEDS ORDERED: Bisacodyl 5 MG TAB PO PRN (07:43)
[2020-07-22] MEDS ORDERED: Ondansetron PF 4 MG/2 ML Vial IVP PRN (07:43)
[2020-07-22] MEDS ORDERED: Acetaminophen 650 MG Suppository PR PRN (07:43)
[2020-07-22] MEDS ORDERED: Benzonatate 100 MG CAP PO PRN (07:43)
[2020-07-22] MEDS ORDERED: GUAIFENESIN SF SOLN 200 MG/10 ML UDCUP PO PRN (07:43)
[2020-07-22] MEDS ORDERED: Cepastat Lozenges 1 LOZ PO PRN (07:43)
[2020-07-22] MEDS ORDERED: Artificial Tear Sol 15 ML BOT EA EYE PRN (07:45)
[2020-07-22] MEDS ORDERED: Pantoprazole 40 MG VIAL IVP SCH (09:00)
[2020-07-22] MEDS ORDERED: Enoxaparin Sodium 40 MG/0.4 ML SYRINGE SC SCH (09:00)
[2020-07-22] MEDS ORDERED: Vancomycin 1 GM in Premix Bag 1 BAG IVPB SCH (09:00)
[2020-07-22] MEDS ORDERED: FLU VACC QS2020-21(65YR UP)/PF 240 MCG/0.7 ML SYRINGE IM ONE (09:00)
[2020-07-22] MEDS ORDERED: Pantoprazole 40 MG VIAL ONE (09:25)
[2020-07-22] MEDS ORDERED: Lorazepam 2 MG/ML VIAL ONE (10:37)
[2020-07-22] MEDS ORDERED: Lorazepam 2 MG/ML VIAL SLOW IVP SCH (10:45)
[2020-07-22] MEDS ORDERED: levETIRAcetam 2,000 MG in Sodium Chloride 0.9% 100 ML IVPB SCH (10:45)
--- NOTE | 2020-07-22 10:52 | PDOC.HOSPP ---
- Subjective Encounter Date: 07/22/20 Encounter Time: 10:45 - Objective Vital Signs & Weight: Vital Signs (12 hours) Pulse Ox 07/22/20 04:00 98 07/22/20 02:24 100 Weight Weight 155 lb Most Recent Monitor Data Heart Rate from ECG 70 NIBP 100/51 NIBP BP-Mean 67 Respiration from ECG 30 SpO2 100 I&O: 07/21/20 07/22/20 07/23/20 06:59 06:59 06:59 Intake Total 300 364 Output Total 275 10 Balance 25 354 Result Diagrams: 07/22/20 04:48 07/22/20 04:48 Radiology Reviewed by me: Yes EKG Reviewed by me: Yes Hospitalist ROS - Review of Systems ROS unobtainable: due to mental status - Medication Medications: Active Medications Generic Name Dose Route Start Last Admin Trade Name Freq PRN Reason Stop Dose Admin Dextrose/Water 1,000 mls @ 100 mls/hr 07/21/20 22:30 07/22/20 07:58 D5w IV Not Given .Q10H GUIDO Lorazepam 1 mg 07/22/20 10:45 07/22/20 10:44 Lorazepam 2 Mg/Ml Vial SLOW IVP 07/22/20 12:45 1 mg NOW GUIDO Administration Pantoprazole Sodium 40 mg 07/22/20 09:00 07/22/20 09:36 Pantoprazole 40 Mg Vial IVP 40 mg DAILY GUIDO Administration Hospitalist Exam Vitals: Vital Signs (12 hours) Pulse Ox 07/22/20 04:00 98 07/22/20 02:24 100 Weight Weight 155 lb Most Recent Monitor Data Heart Rate from ECG 70 NIBP 100/51 NIBP BP-Mean 67 Respiration from ECG 30 SpO2 100 General Appearance: ill appearing Eye: PERRL, anicteric sclera ENT: normocephalic atraumatic, no oropharyngeal lesions Neck: supple, symmetric, no JVD, no thyromegaly Heart: RRR, no murmur, no gallops, no rubs Respiratory: tachypneic Respiratory - other findings: Bilateral coarse breath sound, Gastrointestinal: soft, non-distended, normal bowel sounds Extremities: no cyanosis, no clubbing Skin: normal turgor, no lesions Neurological - other findings: Unable to assess Hosp A/P (1) Septic shock Code(s): A41.9 - SEPSIS, UNSPECIFIED ORGANISM; R65.21 - SEVERE SEPSIS WITH SEPTIC SHOCK Status: Acute (2) Acute respiratory failure with hypoxemia Code(s): J96.01 - ACUTE RESPIRATORY FAILURE WITH HYPOXIA Status: Acute (3) Acute metabolic encephalopathy Code(s): G93.41 - METABOLIC ENCEPHALOPATHY Status: Acute (4) Acute kidney injury Code(s): N17.9 - ACUTE KIDNEY FAILURE, UNSPECIFIED Status: Acute (5) Abnormal blood electrolyte level Code(s): E87.8 - OTH DISORDERS OF ELECTROLYTE AND FLUID BALANCE, NEC Status: Acute (6) Cerebellar infarct Code(s): I63.9 - CEREBRAL INFARCTION, UNSPECIFIED Status: Acute (7) Declining functional status Code(s): R53.81 - OTHER MALAISE Status: Acute (8) Mastoiditis Code(s): H70.90 - UNSPECIFIED MASTOIDITIS, UNSPECIFIED EAR Status: Acute Qualifiers: Laterality: left Qualified Code(s): H70.92 - Unspecified mastoiditis, left ear (9) Thrombocytopenia Code(s): D69.6 - THROMBOCYTOPENIA, UNSPECIFIED Status: Acute (10) UTI (urinary tract infection) Status: Acute Qualifiers: Urinary tract infection type: acute cystitis (11) Alzheimer's dementia Code(s): G30.9 - ALZHEIMER'S DISEASE, UNSPECIFIED; F02.80 - DEMENTIA IN OTH DISEASES CLASSD ELSWHR W/O BEHAVRL DISTURB Status: Chronic (12) Anxiety and depression Code(s): F41.9 - ANXIETY DISORDER, UNSPECIFIED; F32.9 - MAJOR DEPRESSIVE DISOR GRETCHEN, SINGLE EPISODE, UNSPECIFIED Status: Chronic - Plan old records reviewed/req, plan discussed w/ family, continue antibiotics, respiratory therapy, DVT proph w/SCDs Consults: Palliative Care Patient's prognosis is extremely poor Continue empiric broad-spectrum antibiotic coverage with cefepime and vancomycin Neurology consulted and started on Keppra Continue Levophed drip Continue IV fluid for rhythm with a dextrose with water for hyperosmolarity MRI brain and EEG Because of bandemia we will check C. difficile as well Confirmed DNR status with the family member Palliative care consulted We will discuss with the family about goal of care
[2020-07-22 11:45] LABS: ALT (SGPT) 19 U/L (8-55); AST (SGOT) 20 U/L (5-34); Alkaline Phosphatase 126 U/L (40-110); Bilirubin, Direct 0.3 mg/dL (0.1-0.3); Bilirubin, Total 0.5 mg/dL (0.2-1.2); Protein, Total 5.7 g/dL (5.8-8.1)
--- NOTE | 2020-07-22 12:29 | CON ---
NEUROLOGY CONSULTATION DATE OF CONSULTATION: 07/22/2020 REASON FOR CONSULTATION: Altered mental status. HISTORY OF PRESENT ILLNESS: Ms. Felipe Norris is an 89-year-old female with medical history significant for hypertension, dementia, anemia, congestive heart failure, who is a alf resident transferred from [place] because of hypotension, bradycardia, and hypothermia. On presentation, she was found to be hypotensive and cardiogenic shock. She was evaluated and she was admitted for higher level of care. She was recently discharged on 07/17/2020 because of urinary tract infection by Klebsiella in the setting of nephrolithiasis and was started on cefepime and switched to Omnicef prior to discharge. On presentation to the emergency room, she had persistent UTI and HCT scan showed persistent hypodensity in the left cerebellar hemisphere, which raises suspicion for an evolving infarct, which was the reason for transfer for higher level of care. The patient is minimally communicative and is unable to provide history herself, so history is obtained from review of the medical records. ALLERGIES: NO KNOWN DRUG ALLERGIES. HOME MEDICATIONS: 1. Tylenol. 2. Maalox. 3. Cholecalciferol. 4. Ferrous sulfate.. 5. Flonase. 6. Ipratropium. 7. Seroquel. 8. Guaifenesin. 9. Amlodipine. 10. Magnesium chloride. 11. Metoprolol. 12. Remeron. 13. Catapres. 14. Hydralazine. 15. Cefdinir. PAST MEDICAL HISTORY: Hypertension, coronary artery disease, congestive heart failure, anemia, dementia. PAST SURGICAL HISTORY: Not significant. FAMILY HISTORY: Not significant. SOCIAL HISTORY: The patient is a alf resident. There is no documentation of alcohol or illegal drug abuse. REVIEW OF SYSTEMS: Unobtainable due to the patient's mental status. Vital Signs & Weight: Vital Signs (12 hours) Pulse Ox 07/22/20 04:00 98 07/22/20 02:24 100 Weight Weight 155 lb Most Recent Monitor Data Heart Rate from ECG 70 NIBP 100/51 NIBP BP-Mean 67 Respiration from ECG 30 SpO2 100 I&O: 07/21/20 07/22/20 07/23/20 06:59 06:59 06:59 Intake Total 300 364 Output Total 275 10 Balance 25 354 Active Medications Generic Name Dose Route Start Last Admin Trade Name Freq PRN Reason Stop Dose Admin Dextrose/Water 1,000 mls @ 100 mls/hr 07/21/20 22:30 07/22/20 07:58 D5w IV Not Given .Q10H GUIDO Lorazepam 1 mg 07/22/20 10:45 07/22/20 10:44 Lorazepam 2 Mg/Ml Vial SLOW IVP 07/22/20 12:45 1 mg NOW GUIDO Administration Pantoprazole Sodium 40 mg 07/22/20 09:00 07/22/20 09:36 Pantoprazole 40 Mg Vial IVP 40 mg DAILY GUIDO Administration Vitals: Vital Signs (12 hours) Pulse Ox 07/22/20 04:00 98 07/22/20 02:24 100 Weight Weight 155 lb Most Recent Monitor Data Heart Rate from ECG 70 NIBP 100/51 NIBP BP-Mean 67 Respiration from ECG 30 SpO2 100 PHYSICAL EXAMINATION: General Appearance: ill appearing Eye: PERRL, anicteric sclera ENT: normocephalic atraumatic, no oropharyngeal lesions Neck: supple, symmetric, no JVD, no thyromegaly Heart: RRR, no murmur, no gallops, no rubs Respiratory: tachypneic Respiratory - other findings: Bilateral coarse breath sound, Gastrointestinal: soft, non-distended, normal bowel sounds Extremities: no cyanosis, no clubbing Skin: normal turgor, no lesions Neurological - Mental status, the patient is extremely somnolent. She opens eyes to verbal stimuli. She does not track or follow commands. Cranial nerves, pupils 4 mm, round, and reactive to light. Face symmetric. Tongue midline. Corneals positive. Cough positive. She is on oxygen. Motor, muscle bulk is decreased, tone is normal. Spontaneous movement of all 4 extremities seen. Sensory withdraws to nailbed pressure bilaterally. Cerebellar, unable to perform secondary to increased somnolence and acute mental status change. Gait deferred due to the patient's safety reason. DATA REVIEWED: Reviewed the labs, which were significant for metabolic abnormalities including hypernatremia 149, BUN 39, creatinine 1.26, and hyperglycemia 136. Head CT shows suspicion for evolving infarct in the left cerebellar hemisphere. Lab results: Urine Color Yellow (Yellow) 07/21/20 16:25 Urine Clarity Turbid (Clear) A 07/21/20 16:25 Urine pH 5.0 (5.0-9.0) 07/21/20 16:25 Ur Specific [place] 1.016 (1.002-1.036) 07/21/20 16:25 Urine Protein 30 mg/dL (Neg-Trace) A 07/21/20 16:25 Urine Glucose (UA) Normal mg/dL (Negative) 07/21/20 16:25 Urine Ketones Trace mg/dL (Negative) A 07/21/20 16:25 Urine Blood 1+ (Negative) A 07/21/20 16:25 Urine Nitrite Negative (Negative) 07/21/20 16:25 Urine Bilirubin Negative (Negative) 07/21/20 16:25 Urine Urobilinogen Normal mg/dL (Less than 2) 07/21/20 16:25 Ur Leukocyte Esterase 500 Pedro/uL (Negative) A 07/21/20 16:25 Urine RBC 4-6 HPF (0-3) A 07/21/20 16:25 Urine WBC 21-50 HPF (0-3) A 07/21/20 16:25 Ur Squamous Epith Cells 0-3 HPF (0-3) 07/21/20 16:25 Urine Bacteria 4+ HPF (None Seen) A 07/21/20 16:25 ASSESSMENT AND PLAN: (1) Seizure Status: Acute (2) Acute respiratory failure with hypoxemia Code(s): J96.01 - ACUTE RESPIRATORY FAILURE WITH HYPOXIA Status: Acute (3) Acute metabolic encephalopathy Code(s): G93.41 - METABOLIC ENCEPHALOPATHY Status: Acute (4) Acute kidney injury Code(s): N17.9 - ACUTE KIDNEY FAILURE, UNSPECIFIED Status: Acute (5) Abnormal blood electrolyte level Code(s): E87.8 - OTH DISORDERS OF ELECTROLYTE AND FLUID BALANCE, NEC Status: Acute (6) Cerebellar infarct Code(s): I63.9 - CEREBRAL INFARCTION, UNSPECIFIED Status: Acute (7) Declining functional status Code(s): R53.81 - OTHER MALAISE Status: Acute (8) Mastoiditis Code(s): H70.90 - UNSPECIFIED MASTOIDITIS, UNSPECIFIED EAR Status: Acute Qualifiers: Laterality: left Qualified Code(s): H70.92 - Unspecified mastoiditis, left ear (9) Thrombocytopenia Code(s): D69.6 - THROMBOCYTOPENIA, UNSPECIFIED Status: Acute (10) UTI (urinary tract infection) Status: Acute Qualifiers: Urinary tract infection type: acute cystitis (11) Alzheimer's dementia Code(s): G30.9 - ALZHEIMER'S DISEASE, UNSPECIFIED; F02.80 - DEMENTIA IN OTH DISEASES CLASSD ELSWHR W/O BEHAVRL DISTURB Status: Chronic (12) Anxiety and depression Code(s): F41.9 - ANXIETY DISORDER, UNSPECIFIED; F32.9 - MAJOR DEPRESSIVE DISORDER, SINGLE EPISODE, UNSPECIFIED Status: Chronic (13) Sepsis Code(s): A41.9 - SEPSIS, UNSPECIFIED ORGANISM; R65.21 - SEVERE SEPSIS WITH SEPTIC SHOCK Ms. Eileen Norris is an 89-year-old female with history significant for dementia, congestive heart failure, presented with hypotension, bradycardia, and hypothermia with altered mental status. Altered mental status seems multifactorial secondary to infectious etiology like sepsis, urinary tract infection, and metabolic derangement; however, intracranial process cannot be ruled out since head CT is suspicious for evolving infarct in the left cerebellar region. Consider MRI to rule out acute intracranial process. EEG ongoing, which showed spikes emanating from the left > right frontotemporal and parieto-occipital region raising suspicion for underlying epileptogenicity so she was given 1 mg of Ativan and loaded with 2 g of Keppra IV and we will start her on a maintenance dose of 750 mg IV q.12 and observe seizure precautions. Ativan 2 mg IV p.r.n. for seizure greater than 2 minutes. Neuro checks every 2 hours. Permissive control of blood pressure at this time. Strict control of blood glucose. Check hemoglobin A1c, TSH, and fasting lipid panel. May consider starting her on rectal aspirin n.p.o. until cleared by speech, PT/OT. Telemetry to rule out arrhythmias. 2D echo to evaluate for left ventricular ejection fraction and carotid Dopplers to rule out significant stenosis. PT/OT/Speech. Continue medical management per primary team. Plan discussed in detail with the nursing staff. We will continue to follow. Thank you for the consult. Job ID: [id number] MTDD
--- NOTE | 2020-07-22 14:43 | PDOC.DS.DS ---
Provider Date of Admission: 07/21/20 19:23 Date of Discharge: 07/22/20 Admitting Provider: aKylah Mcintyre MD Primary Care Physician: Kaleigh Dunham MD Course Hospital Course: 89-year-old female patient resident of a long term with a history of hypertension, dementia, anemia and heart failure who was transferred from [place] on account of hypotension hypothermia and bradycardia. Patient was noted to be altered in the long term with worsening parameters as above. She was taken by EMS to [place] where at presentation was noted to be hypotensive bradycardic and hypothermic. She was evaluated and it was noted that she was DNR/DNI however her daughter wanted all medical management possible thought she was transferred here for higher level care. She was only recently discharged on 07/17/2020 after being managed for urinary tract infection with Klebsiella in the setting of nephrolithiasis. She was initially started on cefepime and switch to Omnicef prior to discharge. At presentation at [place], labs showed WBC of 4.8, hemoglobin 10.8, platelet 41. Chemistry showed sodium of 152, potassium of 5.2 creatinine of 1.1, lactate of 0.6, troponin of 0.02, BNP of 380. Urine showed increased leukocytes at 500 with WBCs suggestive of incompletely treated UTI CT head was persistent hypodensity in left cerebellar hemisphere which he notes may correlate with an evolving infarct. Also noted opacification of the mastoid air cells to correlate for otomastoiditis. Chest x-ray revealed pulmonary vascular congestion with left pleural effusion. She was started on Levophed for pressor, vancomycin and cefepime also received atropine and 1 L normal saline prior to transfer On arrival here discussion with the daughter notes that she did not want any chest compression and would remain DNR however would want full medical treatment. On my initial assessment patient was becoming more bradycardic and hypotensive with BP not reading. I talked with daughter who although initially seemed to have not wanted a central line changed her mind and wanted a central line so additional pressures could be used. A central line was thus placed however her blood pressures seem to improve on just Levophed. Patient herself was very minimally communicative and will not give me any history by self. Patient remained in the hospital, she remained in emergency room IJ ICU hold, she was getting Levophed drip, patient was having difficulty breathing, she was having coarse breath sound the all over her chest, she was requiring deep suctioning, patient was not doing well, her family member arrived and we di scussed with him about goal of care, they wanted to continue DNR status and they wanted to consider comfort care With help of palliative care to be consulted hospice team and hospice accepted her for follow-up ongoing care, we are discharging from our service and subsequently patient is transferred to inpatient hospice for comfort care and the hospice team will take over from now. Resuscitation Status: 07/21/20 22:18 Resuscitation Status Routine Resuscitation Status: DNAR: NO Resuscitation Discussed with: Discussed with daughter Lab Results: 07/22/20 04:48 07/22/20 04:48 Abnormal Lab Results - Last 48 hrs 07/21/20 16:25: Urine Clarity Turbid A, Urine Protein 30 A, Urine Ketones Trace A, Urine Blood 1+ A, Ur Leukocyte Esterase 500 A, Urine RBC 4-6 A, Urine WBC 21- 50 A, Urine Bacteria 4+ A 07/21/20 22:50: Sodium 149 H, Chloride 126 H*, Carbon Dioxide 19 L, Anion Gap 9 L, BUN 39 H, Creatinine 1.26 H 07/22/20 04:48: Sodium 149 H, Potassium 5.2 H, Chloride 125 H, Carbon Dioxide 16 L, BUN 39 H, Creatinine 1.43 H 07/22/20 04:48: WBC 11.0 H, RBC 3.77 L, Hgb 10.4 L, Hct 35.4 L, MCHC 29.3 L, RDW 17.6 H, Plt Count 73 L, MPV 12.3 H, Band Neuts % (Manual) 29 H, Lymphocytes % (Manual) 4 L, Plt Morphology Comment Appears Decreased L 07/22/20 04:48: Alkaline Phosphatase 126 H, Serum Total Protein 5.7 L, Albumin 3.0 L Vitals: Vital Signs (12 hours) Pulse Ox 07/22/20 04:00 98 Weight Weight 155 lb Most Recent Monitor Data Heart Rate from ECG 70 NIBP 100/51 NIBP BP-Mean 67 Respiration from ECG 30 SpO2 100 Physical Exam: The patient was seen and examined on the day of discharge. General Appearance: NAD, ill appearing Eye: PERRL ENT: dry oral mucosa Neck: supple, symmetric Respiratory: rales, rhonchi, wheezes Cardiovascular: RRR, no gallops Gastrointestinal: soft, non-tender, non-distended, normal bowel sounds, no splenomegaly Extremities: no cyanosis, no clubbing Skin: normal turgor, no lesions Musculoskeletal: generalized weakness, diffuse muscle atrophy PSYCH: lethargic Problem (1) Septic shock Code(s): A41.9 - SEPSIS, UNSPECIFIED ORGANISM; R65.21 - SEVERE SEPSIS WITH SEPTIC SHOCK Status: Acute (2) Acute respiratory failure with hypoxemia Code(s): J96.01 - ACUTE RESPIRATORY FAILURE WITH HYPOXIA Status: Acute (3) Acute metabolic encephalopathy Code(s): G93.41 - METABOLIC ENCEPHALOPATHY Status: Acute (4) Acute kidney injury Code(s): N17.9 - ACUTE KIDNEY FAILURE, UNSPECIFIED Status: Acute (5) Abnormal blood electrolyte level Code(s): E87.8 - OTH DISORDERS OF ELECTROLYTE AND FLUID BALANCE, NEC Status: Acute (6) Cerebellar infarct Code(s): I63.9 - CEREBRAL INFARCTION, UNSPECIFIED Status: Acute (7) Declining functional status Code(s): R53.81 - OTHER MALAISE Status: Acute (8) Mastoiditis Code(s): H70.90 - UNSPECIFIED MASTOIDITIS, UNSPECIFIED EAR Status: Acute Qualifiers: Laterality: left Qualified Code(s): H70.92 - Unspecified mastoiditis, left ear (9) Thrombocytopenia Code(s): D69.6 - THROMBOCYTOPENIA, UNSPECIFIED Status: Acute (10) UTI (urinary tract infection) Status: Acute Qualifiers: Urinary tract infection type: acute cystitis (11) Alzheimer's dementia Code(s): G30.9 - ALZHEIMER'S DISEASE, UNSPECIFIED; F02.80 - DEMENTIA IN OTH DISEASES CLASSD ELSWHR W/O BEHAVRL DISTURB Status: Chronic (12) Anxiety and depression Code(s): F41.9 - ANXIETY DISORDER, UNSPECIFIED; F32.9 - MAJOR DEPRESSIVE DISORDER, SINGLE EPISODE, UNSPECIFIED Status: Chronic Plan Home Medications: Medication Instructions Recorded Confirmed Type Acetaminophen 650 mg PO Q6HR PRN 12/02/19 07/16/20 History Aluminum & Magnesium Hydroxide 20 ml PO Q8HR PRN 12/02/19 07/16/20 History [Maalox] Cholecalciferol (Vitamin D3) 1,000 unit PO DAILY 12/02/19 07/16/20 History [Vitamin D3] Ferrous Sulfate [Feosol] 325 mg PO BID 12/02/19 07/16/20 History Fluticasone Propionate [Flonase 1 spray EA NARE DAILY 12/02/19 07/16/20 History Nasal [place]] Ipratropium/Albuterol Sulfate 3 ml NEB Q6HR PRN 12/02/19 07/16/20 History [DuoNeb] QUEtiapine Fumarate [SEROquel] 50 mg PO BID 12/02/19 07/16/20 History guaiFENesin/Dextromethorphan 10 ml PO Q6HR PRN 12/02/19 07/16/20 History [Tussin Dm 400-20 mg/20 ml Liq] Amlodipine [Norvasc] 5 mg PO BID tab 12/17/19 07/16/20 Rx Magnesium Chloride [Slow-Mag] 64 mg PO BID tab 12/17/19 07/16/20 Rx Metoprolol Tartrate [Lopressor] 75 mg PO BID tab 12/17/19 07/16/20 Rx Saccharomyces boulardii [Florastor] 250 mg PO DAILY cap 12/17/19 07/16/20 Rx Calcium Polycarbophil [Fiber] 625 mg PO DAILY 07/16/20 07/16/20 History Mirtazapine [Remeron] 2 tab PO HS 07/16/20 07/16/20 History cloNIDine [Erjfxgfc-ZMN-6 Patch] 0.1 mg TD Q7DAYS 07/16/20 07/16/20 History hydrALAZINE [Apresoline] 75 mg PO TID 07/16/20 07/16/20 History Cefdinir [Omnicef] 600 mg PO DAILY #7 cap 07/17/20 Rx Allergies: No Known Drug Allergies Allergy (Verified 07/22/20 00:02) Activity:: No Restrictions Nourishment:: No Restrictions Therapies:: Not Applicable Equipment/Supplies:: Not Applicable IV Therapy:: Not Applicable Referrals: Kaleigh Dunham MD [Primary Care Provider] - Disposition: [facility] Quality CORE MEASURES:: N/A
[2020-07-22] MEDS ORDERED: Scopolamine 1.5 mg/72 hour Patch TD PRN (14:48)
[2020-07-22] MEDS ORDERED: Haloperidol Lactate 5 MG/ML VIAL SLOW IVP PRN (14:48)
[2020-07-22] MEDS ORDERED: Morphine IR Tab 15 MG TAB PO PRN (14:48)
[2020-07-22] MEDS ORDERED: diphenhydrAMINE 50 MG/ML VIAL IVP PRN (14:48)
[2020-07-22] MEDS ORDERED: Lorazepam 2 MG/ML VIAL SLOW IVP PRN (14:48)
--- NOTE | 2020-07-22 15:28 | PDOC.EEG ---
Neurology EEG Report - Report Report: This EEG was performed using 24 channel [employer] (formerly [employer]TEK video EEG machine with 24 disc cheyanne ctrodes. This was an extended 2 hours 38 minutes of inpatient video EEG recording. Digital analysis of the EEG was done for spike and seizure detection which revealed no abnormalities. Background: The posterior background rhythm is not observed. Hyperventilation: Not performed. Photic Stimulation: No significant response. Sleep: No stage change is observed. EEG Diagnosis: Generalized irregular theta delta activity intermixed with pseudo-periodic epileptiform discharges (Left > Right) and brief runs of sharply contoured rhythmic activity seen throughout the recording. Absence of posterior background rhythm. 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
--- NOTE | 2020-07-22 16:20 | PDOC.FMACP ---
Advance Care Planning - Problem (1) Acute metabolic encephalopathy Status: Acute Code(s): G93.41 - METABOLIC ENCEPHALOPATHY (2) Acute respiratory failure with hypoxemia Status: Acute Code(s): J96.01 - ACUTE RESPIRATORY FAILURE WITH HYPOXIA (3) Septic shock Status: Acute Code(s): A41.9 - SEPSIS, UNSPECIFIED ORGANISM; R65.21 - SEVERE SEPSIS WITH SEPTIC SHOCK (4) RAISSA (acute kidney injury) Status: Acute Code(s): N17.9 - ACUTE KIDNEY FAILURE, UNSPECIFIED (5) Palliative care encounter Status: Acute Code(s): Z51.5 - ENCOUNTER FOR PALLIATIVE CARE - Note Participants: family, surrogate decision-maker, palliative care Summary: Palliative care revisited Advanced Care Planning iwlisa pickardn daughter. The diagnosis, prognosis and goals of care were discussed. Appropriate forms and documentation to accomplish the goals of care were discussed. All questions were answered. Confirmed DNAR Electing to transition to hospice for comfort measures at end of life Emotional support CM aware/previous [facility] patient Time Spent (mins): 15
[2020-07-22] MEDS ORDERED: Vancomycin HCl 750 MG in Sodium Chloride 0.9% 250 ML 250 ML IVPB SCH (21:00)
[2020-07-22] MEDS ORDERED: Cefepime 2 GM in Sodium Chloride 0.9% 100 ML IVPB SCH (22:00)
[2020-07-23] MEDS ORDERED: Aspirin 300 MG Suppository PR SCH (21:00)
== END 2020-07-22 15:26 | disposition hospice, inpatient (51) | DRG 871 ==
LOC: ERS 16:29 → ERHOLD 19:23
PROVIDERS: ADMIT Internal Medicine; ATTEND Internal Medicine
PROC: 3E033XZ Introduction of Vasopressor into Peripheral Vein, Percutaneous Approach (ICD-10-PCS; principal; 2020-07-21)
DX: A41.9 Sepsis, unspecified organism (principal); R65.21 Severe sepsis with septic shock; J96.01 Acute respiratory failure with hypoxia; G93.41 Metabolic encephalopathy; I63.9 Cerebral infarction, unspecified; N17.9 Acute kidney failure, unspecified; N30.00 Acute cystitis without hematuria; E87.1 Hypo-osmolality and hyponatremia; Z66 Do not resuscitate; Z20.822 Contact with and (suspected) exposure to COVID-19; I11.0 Hypertensive heart disease with heart failure; H70.92 Unspecified mastoiditis, left ear; D69.6 Thrombocytopenia, unspecified; G30.9 Alzheimer's disease, unspecified; F02.80 Dementia in other diseases classified elsewhere, unspecified severity, without behavioral disturbance, psychotic disturbance, mood disturbance, and anxiety; I50.9 Heart failure, unspecified; H40.9 Unspecified glaucoma; K21.9 Gastro-esophageal reflux disease without esophagitis; D50.9 Iron deficiency anemia, unspecified; R63.0 Anorexia; F42.9 Obsessive-compulsive disorder, unspecified; F41.9 Anxiety disorder, unspecified; E87.5 Hyperkalemia; G93.89 Other specified disorders of brain; F32.9 Major depressive disorder, single episode, unspecified; Z79.899 Other long term (current) drug therapy
CPT/HCPCS: 0240U; 36415; 36556; 51702; 80048; 80076; 85025; 95712; 95819; 95957; 96365; 96366; 96368; C9113; J0692; J1250; J1940; J1953; J2060; J3370; J3490

== ENCOUNTER 2020-07-22 15:26 | Inpatient (IN) | payer OTHER ==
[2020-07-22] MEDS ORDERED: Morphine 2 MG/ML VIAL SLOW IVP PRN (15:49)
[2020-07-22] MEDS ORDERED: Haloperidol Lactate 5 MG/ML VIAL SLOW IVP PRN (16:00)
[2020-07-22] MEDS ORDERED: Ondansetron PF 4 MG/2 ML Vial IVP PRN (16:00)
[2020-07-22] MEDS ORDERED: Scopolamine 1.5 mg/72 hour Patch TOP PRN (16:00)
[2020-07-22] MEDS: Lorazepam 2 MG/ML VIAL SLOW IVP SCH ×2 (17:05→20:30)
[2020-07-22] MEDS: Morphine 4 MG/ML VIAL SLOW IVP SCH ×4 (17:05→22:16)
[2020-07-22 21:32] VITALS: BP 75/45
[2020-07-23] MEDS: Lorazepam 2 MG/ML VIAL SLOW IVP SCH ×4 (00:14→12:57)
[2020-07-23] MEDS: Morphine 4 MG/ML VIAL SLOW IVP SCH ×8 (00:14→13:59)
[2020-07-23 09:29] VITALS: TEMP 84.3
== END 2020-07-23 11:20 | disposition expired | DRG 951 ==
LOC: ONC 15:26
PROVIDERS: ADMIT Family Medicine; ATTEND Family Medicine
DX: Z51.5 Encounter for palliative care (principal); A41.9 Sepsis, unspecified organism; Z66 Do not resuscitate; R65.21 Severe sepsis with septic shock; J96.01 Acute respiratory failure with hypoxia; G93.41 Metabolic encephalopathy; I63.9 Cerebral infarction, unspecified; N17.9 Acute kidney failure, unspecified; N39.0 Urinary tract infection, site not specified; E87.1 Hypo-osmolality and hyponatremia; E87.8 Other disorders of electrolyte and fluid balance, not elsewhere classified; I50.9 Heart failure, unspecified; D69.6 Thrombocytopenia, unspecified; E87.5 Hyperkalemia; D64.9 Anemia, unspecified
CPT/HCPCS: J2060; J2270